=== PATIENT | male | born 1945 | race Caucasian/White ===

== ENCOUNTER → 2023-04-22 09:19 | Outpatient (REF) | payer MEDICARE, SELFPAY ==
[2023-04-22 10:04] LABS: % Basophils 0.4 % (0-2); % Eosinophils 4.4 % (0-6); % Immature Granulocytes 2.5 % (0-0.5); % Lymphocytes 10.2 % (20.5-51.1); % Monocytes 10.1 % (1.7-9.3); % Neutrophils 72.4 % (42.2-75.2); Absolute Eosinophils 0.2 10^3/uL (0-0.7); Absolute Immature Granulocytes 0.1 10^3/uL (0-0.05); Absolute Lymphocytes 0.5 10^3/uL (1.2-3.4); Absolute Monocytes 0.5 10^3/uL (0.1-0.6); Absolute Neutrophils 3.8 10^3/uL (1.4-6.5); Hematocrit 31.7 % (39.0-52.0); Hemoglobin 10.5 g/dL (13.0-18.0); Mean Corp Hgb Conc. 33.1 g/dL (33.0-37.0); Mean Corpuscular Hgb 31.1 pg (27.0-31.0); Mean Corpuscular Volume 93.8 fL (80.0-94.0); Nucleated Red Blood Cells % 0 % (-); Platelet Count 216 10^3/uL (130-400); Red Blood Cell Count 3.38 10^6/uL (4.70-6.10); Red Cell Dist. Width 14.1 % (11.5-14.5); White Blood Cell Count 5.3 10^3/uL (4.8-10.8)
[2023-04-22 10:31] LABS: ALT (SGPT) 13 U/L (0-50); AST (SGOT) 15 U/L (17-59); Alkaline Phosphatase 95 U/L (38-126); Blood Urea Nitrogen 60 mg/dl (9-20); Calcium 9.9 mg/dl (8.4-10.2); Carbon Dioxide 18 mmol/L (22-30); Chloride 105 mmol/L (98-107); Glucose 169 mg/dl (70-99); Potassium 4.3 mmol/L (3.5-5.1); Sodium 140 mmol/L (135-145); Total Bilirubin 0.6 mg/dl (0.2-1.3); Total Protein 6.7 g/dl (6.3-8.2); eGFR 16.67
[2023-04-22 10:59] LABS: PSA, Total - Diagnostic 0.16 ng/ml (0.0-4.0)
== END ==
LOC: REG 09:19
PROVIDERS: ATTENDING PHYSICIAN Internal Medicine Hematology & Oncology; FAMILY PHYSICIAN Family Medicine
DX: C61 Malignant neoplasm of prostate (principal); R91.8 Other nonspecific abnormal finding of lung field
CPT/HCPCS: 36415; 80053; 84153; 85025

== ENCOUNTER → 2023-07-15 11:55 | Outpatient (REF) | payer MEDICARE, SELFPAY ==
[2023-07-15 12:46] VITALS: BP 147/78; BP_SYST 55
[2023-07-15 13:44] VITALS: BP 149/73
== END ==
LOC: RADI 11:55
PROVIDERS: ATTENDING PHYSICIAN Radiology Vascular & Interventional Radiology
DX: Z43.6 Encounter for attention to other artificial openings of urinary tract (principal); N13.6 Pyonephrosis
CPT/HCPCS: 50435; C1729; C1769

== ENCOUNTER → 2023-07-21 10:13 | Outpatient (REF) | payer MEDICARE, SELFPAY ==
[2023-07-21 11:25] LABS: % Basophils 0.3 % (0-2); % Eosinophils 3.6 % (0-6); % Immature Granulocytes 1.9 % (0-0.5); % Lymphocytes 7.8 % (20.5-51.1); % Monocytes 6.5 % (1.7-9.3); % Neutrophils 79.9 % (42.2-75.2); Absolute Eosinophils 0.2 10^3/uL (0-0.7); Absolute Immature Granulocytes 0.1 10^3/uL (0-0.05); Absolute Lymphocytes 0.5 10^3/uL (1.2-3.4); Absolute Monocytes 0.4 10^3/uL (0.1-0.6); Hematocrit 31.4 % (39.0-52.0); Hemoglobin 10.7 g/dL (13.0-18.0); Mean Corp Hgb Conc. 34.1 g/dL (33.0-37.0); Mean Corpuscular Hgb 32.3 pg (27.0-31.0); Mean Corpuscular Volume 94.9 fL (80.0-94.0); Nucleated Red Blood Cells % 0 % (-); Platelet Count 232 10^3/uL (130-400); Red Blood Cell Count 3.31 10^6/uL (4.70-6.10); Red Cell Dist. Width 13.5 % (11.5-14.5); White Blood Cell Count 6.3 10^3/uL (4.8-10.8)
[2023-07-21 13:34] LABS: Blood Urea Nitrogen 52 mg/dl (9-20); Carbon Dioxide 19 mmol/L (22-30); Chloride 107 mmol/L (98-107); Glucose 150 mg/dl (70-99); Sodium 140 mmol/L (135-145); eGFR 15.05
[2023-07-21 13:46] LABS: PSA, Total - Diagnostic 0.14 ng/ml (0.0-4.0)
== END ==
LOC: REG 10:13
PROVIDERS: ATTENDING PHYSICIAN Internal Medicine Hematology & Oncology
DX: C61 Malignant neoplasm of prostate (principal); R91.8 Other nonspecific abnormal finding of lung field
CPT/HCPCS: 36415; 80048; 84153; 85025

== ENCOUNTER → 2023-07-26 12:00 | Outpatient (REF) | payer MEDICARE, SELFPAY ==
[2023-07-26 12:22] VITALS: BP_SYST 82
== END ==
LOC: RADI 12:00
PROVIDERS: ATTENDING PHYSICIAN Radiology Vascular & Interventional Radiology; FAMILY PHYSICIAN Family Medicine
DX: T83.092A Other mechanical complication of nephrostomy catheter, initial encounter (principal); Y83.3 Surgical operation with formation of external stoma as the cause of abnormal reaction of the patient, or of later complication, without mention of misadventure at the time of the procedure
CPT/HCPCS: 50431

== ENCOUNTER → 2023-08-02 13:13 | Outpatient (REF) | payer MEDICARE, SELFPAY ==
[2023-08-02 15:26] LABS: PSA, Total - Diagnostic 0.13 ng/ml (0.0-4.0)
== END ==
LOC: REG 13:13
PROVIDERS: ATTENDING PHYSICIAN Family Medicine Geriatric Medicine; FAMILY PHYSICIAN Family Medicine
DX: C61 Malignant neoplasm of prostate (principal)
CPT/HCPCS: 36415; 84153

== ENCOUNTER → 2023-08-10 08:06 | Outpatient (REF) | payer MEDICARE, SELFPAY ==
[2023-08-10 09:46] LABS: Albumin 4.1 g/dl (3.5-5.0); Blood Urea Nitrogen 52 mg/dl (9-20); Calcium 9.7 mg/dl (8.4-10.2); Carbon Dioxide 19 mmol/L (22-30); Chloride 107 mmol/L (98-107); Glucose 192 mg/dl (70-99); Phosphorus 4.5 mg/dl (2.5-4.5); Sodium 138 mmol/L (135-145); eGFR 16.03
[2023-08-10 10:14] LABS: Protein/creatinine Ratio 3.2; Urine Protein 111 mg/dl
[2023-08-11 12:10] LABS: Intact PTH 30.8 pg/ml (13.6-85.8)
== END ==
LOC: REG 08:06
PROVIDERS: ATTENDING PHYSICIAN Internal Medicine; FAMILY PHYSICIAN Family Medicine
DX: E83.39 Other disorders of phosphorus metabolism (principal); N18.5 Chronic kidney disease, stage 5; D63.1 Anemia in chronic kidney disease; N17.9 Acute kidney failure, unspecified
CPT/HCPCS: 36415; 80069; 82570; 82652; 83970; 84156

== ENCOUNTER → 2023-10-13 10:07 | Outpatient (REF) | payer MEDICARE, SELFPAY ==
[2023-10-13 10:28] VITALS: BP 144/75; BP_SYST 85
== END ==
LOC: RADI 10:07
PROVIDERS: ATTENDING PHYSICIAN Radiology Vascular & Interventional Radiology; FAMILY PHYSICIAN Family Medicine
DX: Z43.6 Encounter for attention to other artificial openings of urinary tract (principal); N13.30 Unspecified hydronephrosis
CPT/HCPCS: 50435; C1729; C1769

== ENCOUNTER → 2023-10-14 09:53 | Outpatient (REF) | payer MEDICARE, SELFPAY ==
[2023-10-14 10:46] LABS: % Basophils 0.3 % (0-2); % Immature Granulocytes 1.4 % (0-0.5); % Lymphocytes 8.7 % (20.5-51.1); % Monocytes 12.6 % (1.7-9.3); Absolute Eosinophils 0.1 10^3/uL (0-0.7); Absolute Immature Granulocytes 0.1 10^3/uL (0-0.05); Absolute Lymphocytes 0.5 10^3/uL (1.2-3.4); Absolute Monocytes 0.7 10^3/uL (0.1-0.6); Absolute Neutrophils 4.4 10^3/uL (1.4-6.5); Hemoglobin 10.2 g/dL (13.0-18.0); Mean Platelet Volume 10.3 fL (7.4-10.4); Nucleated Red Blood Cells % 0 % (-); Platelet Count 212 10^3/uL (130-400); Red Blood Cell Count 3.19 10^6/uL (4.70-6.10); Red Cell Dist. Width 13.5 % (11.5-14.5); White Blood Cell Count 5.9 10^3/uL (4.8-10.8)
[2023-10-14 12:19] LABS: ALT (SGPT) 12 U/L (0-50); AST (SGOT) 17 U/L (17-59); Albumin 3.9 g/dl (3.5-5.0); Alkaline Phosphatase 92 U/L (38-126); Blood Urea Nitrogen 57 mg/dl (9-20); Calcium 9.3 mg/dl (8.4-10.2); Carbon Dioxide 22 mmol/L (22-30); Chloride 102 mmol/L (98-107); Glucose 131 mg/dl (70-99); Potassium 3.7 mmol/L (3.5-5.1); Sodium 137 mmol/L (135-145); Total Bilirubin 0.5 mg/dl (0.2-1.3); Total Protein 6.7 g/dl (6.3-8.2); eGFR 11.73
== END ==
LOC: REG 09:53
PROVIDERS: ATTENDING PHYSICIAN Internal Medicine Hematology & Oncology; FAMILY PHYSICIAN Family Medicine
DX: C61 Malignant neoplasm of prostate (principal); R91.8 Other nonspecific abnormal finding of lung field; N18.9 Chronic kidney disease, unspecified
CPT/HCPCS: 36415; 80053; 84153; 85025

== ENCOUNTER → 2023-11-01 08:14 | Outpatient (REF) | payer MEDICARE, SELFPAY ==
[2023-11-01 10:42] LABS: Urine Albumin 1+ (Neg - Trace); Urine Bilirubin Negative (Negative); Urine Character Slightly Cloudy (Clear); Urine Color Yellow; Urine Glucose Negative (Negative); Urine Ketone Negative (Negative); Urine Leukocyte 2+ (Negative); Urine Nitrite Negative (Negative); Urine Occult Blood 1+ (Negative); Urine Urobilinogen Negative (Neg - 1+)
[2023-11-01 11:07] LABS: Albumin 4.3 g/dl (3.5-5.0); Blood Urea Nitrogen 47 mg/dl (9-20); Calcium 9.9 mg/dl (8.4-10.2); Carbon Dioxide 28 mmol/L (22-30); Chloride 101 mmol/L (98-107); Glucose 101 mg/dl (70-99); Potassium 4.1 mmol/L (3.5-5.1); Sodium 138 mmol/L (135-145); eGFR 13.77
[2023-11-01 11:40] LABS: Urine Mucus Many
[2023-11-01 11:42] LABS: Urine Red Blood Cell 0-2 /HPF (0-2); Urine White Cell 40-50 /HPF (0-5)
[2023-11-01 11:43] LABS: Urine Bacteria Many (Negative)
[2023-11-01 20:09] LABS: Protein/creatinine Ratio 2.1; Urine Protein 86 mg/dl
== END ==
LOC: REG 08:14
PROVIDERS: ATTENDING PHYSICIAN Internal Medicine; FAMILY PHYSICIAN Family Medicine
DX: C61 Malignant neoplasm of prostate (principal); N18.5 Chronic kidney disease, stage 5; E83.39 Other disorders of phosphorus metabolism; D63.1 Anemia in chronic kidney disease; I10 Essential (primary) hypertension
CPT/HCPCS: 36415; 80069; 81003; 81015; 82570; 84156

== ENCOUNTER → 2023-12-06 06:52 | Outpatient (REF) | payer MEDICARE, SELFPAY ==
[2023-12-06 07:52] VITALS: BP 148/95; BP_SYST 95
== END ==
LOC: RADI 06:52
PROVIDERS: ATTENDING PHYSICIAN Radiology Diagnostic Radiology; FAMILY PHYSICIAN Family Medicine
DX: Z43.6 Encounter for attention to other artificial openings of urinary tract (principal); N13.30 Unspecified hydronephrosis
CPT/HCPCS: 50435; C1729; C1769

== ENCOUNTER → 2024-01-13 07:21 | Outpatient (REF) | payer MEDICARE, SELFPAY ==
[2024-01-13 09:47] LABS: % Basophils 0.3 % (0-2); % Eosinophils 2.7 % (0-6); % Immature Granulocytes 1.4 % (0-0.5); % Lymphocytes 9.1 % (20.5-51.1); % Monocytes 5.6 % (1.7-9.3); % Neutrophils 80.9 % (42.2-75.2); Absolute Eosinophils 0.2 10^3/uL (0-0.7); Absolute Immature Granulocytes 0.1 10^3/uL (0-0.05); Absolute Lymphocytes 0.6 10^3/uL (1.2-3.4); Absolute Monocytes 0.4 10^3/uL (0.1-0.6); Absolute Neutrophils 5.1 10^3/uL (1.4-6.5); Hematocrit 31.6 % (39.0-52.0); Hemoglobin 10.5 g/dL (13.0-18.0); Mean Corp Hgb Conc. 33.2 g/dL (33.0-37.0); Mean Corpuscular Hgb 32.5 pg (27.0-31.0); Mean Corpuscular Volume 97.8 fL (80.0-94.0); Mean Platelet Volume 9.8 fL (7.4-10.4); Nucleated Red Blood Cells % 0 % (-); Platelet Count 220 10^3/uL (130-400); Red Blood Cell Count 3.23 10^6/uL (4.70-6.10); Red Cell Dist. Width 13.9 % (11.5-14.5); White Blood Cell Count 6.3 10^3/uL (4.8-10.8)
[2024-01-13 11:43] LABS: ALT (SGPT) < 10 U/L (0-50); AST (SGOT) 14 U/L (17-59); Albumin 4.2 g/dl (3.5-5.0); Alkaline Phosphatase 110 U/L (38-126); Blood Urea Nitrogen 44 mg/dl (9-20); Carbon Dioxide 24 mmol/L (22-30); Chloride 102 mmol/L (98-107); Glucose 170 mg/dl (70-99); Sodium 140 mmol/L (135-145); Total Bilirubin 0.8 mg/dl (0.2-1.3); Total Protein 6.9 g/dl (6.3-8.2); eGFR 11.44
[2024-01-13 12:01] LABS: PSA, Total - Diagnostic < 0.06 ng/ml (0.0-4.0)
== END ==
LOC: REG 07:21
PROVIDERS: ATTENDING PHYSICIAN Internal Medicine Hematology & Oncology; FAMILY PHYSICIAN Family Medicine
DX: C61 Malignant neoplasm of prostate (principal); R91.8 Other nonspecific abnormal finding of lung field; N18.9 Chronic kidney disease, unspecified
CPT/HCPCS: 36415; 80053; 84153; 85025

== ENCOUNTER 2024-01-25 22:53 | Inpatient (IN) | payer MEDICARE, SELFPAY ==
[2024-01-25 17:00] VITALS: BMI 25.0
[2024-01-25 17:05] VITALS: BP 107/66
[2024-01-25 18:00] VITALS: BP 104/63
[2024-01-25 18:04] LABS: COVID-19 Antigen Negative (Negative)
[2024-01-25 20:00] VITALS: BP 121/61
--- NOTE | 2024-01-25 20:06 | ED.GENMED ---
History of Present Illness
General
Chief Complaint: Abdominal Pain
Source: patient
Exam Limitations: none
Time Seen by Provider: 01/25/24 19:21
History of Present Illness
History of Present Illness:
This is a 78 year old male that comes in with c/o abd pain. States that he started about 2 weeks ago with abd pain. States that every morning when he gets up his stomach is grumbling. States that this gets less throughout the day. Then he started
with increased abd pain. Over the pst week the pain has gotten worse and it is more in the center abd. Sates that she can't eat and has only eaten maybe 2 bowl of cereal and did not finish this. States that he has had chills, chest pain, with a
cough, SOB with activity, abd pain, and diarrhea, dizziness. Denies any fever, nausea, vomiting, headache. Patient also has 2 nephrostomy tubes with the left being the dominent.
Past History
Past History
ED Past Medical History: None; Negative Asthma, HTN, Hypercholesterolemia or NIDDM
ED Past Surgical History: Orthopedic (Right rotator cuff, ), Urological (Bilateral nephrostomy tubes) and Other (Cataracts, Inguinal hernia, Polyps removed form Throat)
Social History
Tobacco: Former smoker
Alcohol: None
Personal:
Living: with family
Review of Systems
Review of Systems
All Other Systems: ROS reviewed and negative except as documented in HPI and ROS
Constitutional: Reports chills; Denies fever
EENT: Reports no symptoms
Respiratory: Reports cough and trouble breathing
Cardiac: Reports chest pain
ABD/GI: Reports abdominal pain and diarrhea; Denies nausea or vomiting
: Reports other (Bilateral Nephrostomy tubes)
Musculoskeletal: Reports no symptoms
Skin: Reports no symptoms
Neurological: Reports dizzy; Denies headache
Psychiatric: Reports no symptoms
Phy Exam
General Physical Exam
General Presentation: no apparent distress
General age: appears stated age
General Skin: warm and dry
General Habitus: elderly
General Mental: alert
General Hydration: dry mucous membranes
ENT Exam
ENT Exam: TM's normal, pharynx normal and neck supple
Eye Exam
Eye Exam: EOMI
Cardiovascular Exam
Cardiovascular Exam: regular rate/rhythm, no edema, no murmur and normal peripheral pulses
Pulmonary Exam
Pulmonary Exam: lungs clear, no respiratory distress, no rales, chest non tender, no crackles, no rhonchi, no wheezing and other (Dry cough noted)
Gastrointestinal Exam
Gastrointestinal Exam: normal bowel sounds, soft, no organomegaly, no pulsatile mass, non distended and tender (Left sided abd tenderness)
Genitourinary Exam Male
Exam Male: other (Bilateral nephrostomy tubes intact with site clean and dry. Left suture have broke on the nephrostomy tube. )
Musculoskeletal Exam
Musculoskeletal Exam: full ROM and no edema
Skin Exam
Skin Exam: normal color, warm/dry, no rash, no petechia and other
Psychiatric Exam
Psychiatric Exam: normal mood/affect
Course
Orders/Labs/Results
Orders:
Orders
01/25/24 17:25
COVID-19 Antigen Urgent
Source: Nasal Swab
Influenza A+B Rapid Molecular Urgent
MYKE Source: Nasal Swab
Specimen Description:
01/25/24 20:06
0.9% Sodium Chloride 1000 ml [Nss] 1,000 ml IV BOLUS
CR Chest - 2 Views Urgent
Comment:
Reason For Exam: Cough
01/25/24 20:17
Electrocardiogram (*1) Urgent
Reason for Study: Shortness of Breath
01/25/24 20:29
Complete Blood Count/With Diff Urgent
Comprehensive Metabolic Panel Urgent
Lactic Acid Urgent
Lipase Urgent
Troponin I Urgent
01/25/24 20:46
Urinalysis Reflex To Culture Urgent
Date Specimen was Collected: 01/25/24
Time Specimen was Collected: 20:45
Urine Microscopic Reflex Cult Urgent
Urine Culture Urgent
MYKE Source: U
Specimen Description:
Date Specimen was Collected: 01/25/24
Time Specimen was Collected: 20:45
01/25/24 21:41
Iohexol [Omnipaque] See Protocol PO NOW STA
01/25/24 21:44
Cefepime HCl [Maxipime] 1,000 mg IV NOW STA
01/25/24 22:45
Admit/Transfer Patient As Directed
Co-Sign Provider:
Level of Care: Inpatient admission
Assign to:: Medical/Surgical
Physician / Group: tj
Diagnosis: nephrostmy associated uti
Reason for Hospitalization: nephrostomy associated uti
Expected length of stay greater than two midnights?: Yes
ELOS- Estimated Length of Stay in days: 2
I certify the patient meets the requirements for IP care: Yes
Code Status As Directed
Resuscitation Status: Full Code
PRN Pain Medication Management As Directed
May give lesser potent ordered pain med per pt: Yes
preference::
Protocol:: Medication orders for pain may be administered in a
manner that supports deferring to patient preference
when the pt is:
- Requesting an ordered lesser potent pain medication.
Least to most potent pain medications are defined
as: acetaminophen < NSAID < tramadol < opioids
(morphine, oxycodone, hydromorphone).
- Requesting a lesser dose of the same medication IF
ORDERED.
- Requesting a less intrusive route of administration
if both routes are prescribed by the provider (PO <
IV).
01/25/24 22:52
Consult Notification Routine
Specialty to Notify: Nephrology
NEPHROLOGY CONSULT Routine
Consulting Provider: Diodato,Chapin V.
Was physician already notified: No
Reason for consult: jaylyn
01/26/24 00:00
CT Abd/pel (oral only)-DH Only Urgent
Reason For Exam: Left sided and mid abd pain
01/26/24 00:14
0.9% Sodium Chloride 1000 ml [Nss] 1,000 ml IV 100 mls/hr
Acetaminophen [Tylenol] 650 mg PO Q4HPRN PRN
Cefepime HCl [Maxipime] 1,000 mg IV Q12H
01/26/24 00:14
Activity As Directed
Activity Level: As Tolerated
Vital Signs As Directed
Frequency: Per unit guidelines
DX Deep Vein Thrombosis Video Routine
01/26/24 06:00
Complete Blood Count/With Diff IN AM
Comprehensive Metabolic Panel IN AM
01/26/24 08:00
Heparin 5,000 units SC Q12
01/26/24 Dinner
Regular
Abnormal Lab Results
01/25/24 01/25/24
20:29 20:46
RBC 3.03 L 10^6/uL
(4.70-6.10)
Hgb 9.5 L g/dL
(13.0-18.0)
Hct 27.0 L %
(39.0-52.0)
MCH 31.4 H pg
(27.0-31.0)
Abs Immat Gran (auto) 0.1 H 10^3/uL
(0-0.05)
Absolute Neuts (auto) 8.6 H 10^3/uL
(1.4-6.5)
Absolute Lymphs (auto) 0.4 L 10^3/uL
(1.2-3.4)
Absolute Monos (auto) 1.0 H 10^3/uL
(0.1-0.6)
Immature Gran % 1.2 H %
(0-0.5)
Neutrophils % 82.9 H %
(42.2-75.2)
Lymphocytes % 4.3 L %
(20.5-51.1)
Monocytes % 9.9 H %
(1.7-9.3)
Potassium 3.4 L mmol/L
(3.5-5.1)
Chloride 97 L mmol/L
(98-107)
Carbon Dioxide 21 L mmol/L
(22-30)
BUN 92 H mg/dl
(9-20)
Creatinine 7.5 H* mg/dL
(0.7-1.3)
Glucose 109 H mg/dl
(70-99)
Lactic Acid 2.1 H mmol/L
(0.7-2.0)
Ur Occult Blood Reflex 3+ A
(Negative)
Leukocyte Esterase Rfl 2+ A
(Negative)
Urine RBC 3-6 A /HPF
(0-2)
Urine WBC (Reflex) 50-60 A /HPF
(0-5)
Urine Bacteria (Reflex) Many A
(Negative)
Urine Albumin (Reflex) 3+ A
(Neg - Trace)
01/25/24 20:29
01/25/24 20:29
COVID and Influenza negative H/H low. Acute renal failure, Glucose nonfasting. Urine positive for infection. Lactic acid elevated at 2.1, Troponin 0.020, Lipase normal at 116.
Vital Signs
Initial and Last Documented VS:
Initial Vital Signs
Temp Pulse Resp BP Pulse Ox
97.5 F 94 18 107/66 100
01/25/24 17:05 01/25/24 17:05 01/25/24 17:05 01/25/24 17:05 01/25/24 17:05
Last Documented Vital Signs
Temp Pulse Resp BP Pulse Ox
98.1 F 79 18 130/61 94
01/26/24 00:13 01/26/24 00:13 01/26/24 00:13 01/26/24 00:13 01/26/24 00:13
MDM/Problems Addressed
Differential Diagnosis Includes:
UTI, Diverticulitis, Nephrostomy dislodged
MDM/Problems Addressed:
This is a 78 year old male that comes in with c/o abd pain for the past 2 weeks. States that over the past week the pain has increased. States that he has not been able to eat and over the past week the pain has gotten worse.
Will get labs, give IV fluids, CT scan and urine
Back into see patient. Explained that he would be admitted as patient is in acute renal failure. Patient has a UTI. Unable to give IV contrast so will give oral for his abd pain to get CT scan.
CT report given to Hospitalist.
Chronic conditions affecting care:
Bilateral Nephrostomy tubes
Acute Exacerbation and/or Progression of Chronic Illness:
NA
*Radiology
Radiology exam reviewed: radiology read reviewed (CT night hawk- Compared to 08/15/2022 Bilateral percutaneous nephrstomy tubes. Multiple at least 5 stones in the distal left ureter measuring up to 7mm in diameter. 2mm stone in the right UVJ. Mild
left hydronephrosis and hydroureter. Mild bilateral perinephric stranding. Mild bladder wall thickening), all reviewed NAD by ED Provider (Ct cont- possibley due to its decompressed state please correlate for urinary tract infection. Other
nonobstructing stones in the kidneys bilaterally. Moderate left and severe right renal scarring. Oral contrast is seen in the colon, suggestive or hyperperistalsis/enterocolitis or maybe due to delay) and other (CT cont-in imaging. Incidental
findings: Normal appendix. Gallbladder is unremarkable. Moderate to severe aortic calcifications. Prostate brachytherapy pellets. Lack of intravenous contrast diminished evaluation of the visceral organs. )
*Pulse Oximetry
Patient hypoxic: no
*Emotionally Impaired Teacher Interpretation
Rate: Emotionally Impaired Teacher- N/A
*Critical Care Note
Total Time (30-74mins, 75-104mins- exclusive of procedures): Not Applicable
ED Attending Note
-
Portions of this chart may have been created with voice recognition software.� Occasional wrong word or��sound alike� substitutions may have occurred due to the inherent limitations of voice recognition software.
Discharge Plan
Departure
Patient Disposition: Admit
Date of Disposition: 01/25/24
Time of Disposition: 22:00
Admit to: Telemetry
Presentation/result/management discussed w/ accepting MD/DO: Hospitalist
Patient with high blood pressure during this ER visit?: Yes
Condition: Good
Covid-19: Negative COVID-19
Discharge Problem:
Acute renal failure, Urinary tract infection
Interventions
Interventions:
*Risk Screen - Suicide Last Done: 01/25/24 17:07
*General Assessment Last Done: 01/25/24 17:07
*Neglect/Abuse Screening Last Done: 01/25/24 17:07
ED- Fall Risk Assessment Last Done: 01/25/24 22:09
*ED COVID-19 Vaccine History Last Done: 01/25/24 22:08
*Nursing Disposition Last Done: 01/26/24 00:00
QS-Kjeuii-Bzlbmiavtq Assessment Last Done: 01/25/24 19:54
Discharge Date and Time
Discharge Date/Time: 01/26/24 00:10
[2024-01-25] MEDS: NSS 1000 IV (20:25)
[2024-01-25 20:39] LABS: % Basophils 0.2 % (0-2); % Eosinophils 1.5 % (0-6); % Immature Granulocytes 1.2 % (0-0.5); % Lymphocytes 4.3 % (20.5-51.1); % Monocytes 9.9 % (1.7-9.3); % Neutrophils 82.9 % (42.2-75.2); Absolute Eosinophils 0.2 10^3/uL (0-0.7); Absolute Immature Granulocytes 0.1 10^3/uL (0-0.05); Absolute Lymphocytes 0.4 10^3/uL (1.2-3.4); Absolute Neutrophils 8.6 10^3/uL (1.4-6.5); Hemoglobin 9.5 g/dL (13.0-18.0); Mean Corp Hgb Conc. 35.2 g/dL (33.0-37.0); Mean Corpuscular Hgb 31.4 pg (27.0-31.0); Mean Corpuscular Volume 89.1 fL (80.0-94.0); Mean Platelet Volume 9.6 fL (7.4-10.4); Nucleated Red Blood Cells % 0 % (-); Platelet Count 303 10^3/uL (130-400); Red Blood Cell Count 3.03 10^6/uL (4.70-6.10); Red Cell Dist. Width 13.3 % (11.5-14.5); White Blood Cell Count 10.3 10^3/uL (4.8-10.8)
[2024-01-25 20:58] LABS: Urine Albumin 3+ (Neg - Trace); Urine Bilirubin Negative (Negative); Urine Character Very Cloudy (Clear); Urine Color Yellow; Urine Glucose Negative (Negative); Urine Ketone Negative (Negative); Urine Leukocyte 2+ (Negative); Urine Nitrite Negative (Negative); Urine Occult Blood 3+ (Negative); Urine Urobilinogen Negative (Neg - 1+)
[2024-01-25 21:03] LABS: Lactic Acid 2.1 mmol/L (0.7-2.0)
[2024-01-25 21:05] LABS: Urine Squamous Cell 0-2 /LPF (Few)
[2024-01-25 21:07] LABS: Urine Bacteria Many (Negative); Urine White Cell 50-60 /HPF (0-5)
[2024-01-25 21:18] LABS: ALT (SGPT) 13 U/L (0-50); AST (SGOT) 24 U/L (17-59); Albumin 3.6 g/dl (3.5-5.0); Alkaline Phosphatase 86 U/L (38-126); Blood Urea Nitrogen 92 mg/dl (9-20); Carbon Dioxide 21 mmol/L (22-30); Chloride 97 mmol/L (98-107); Estimated Creatinine Clearance 8 ml/min; Glucose 109 mg/dl (70-99); Lipase 116 U/L (23-300); Potassium 3.4 mmol/L (3.5-5.1); Sodium 139 mmol/L (135-145); Total Bilirubin 0.7 mg/dl (0.2-1.3); Total Protein 6.5 g/dl (6.3-8.2); eGFR 6.87
[2024-01-25] MEDS: OMNIPAQUE 50 ML PO (21:59)
[2024-01-25] MEDS: MAXIPIME 1000 MG IV (22:04)
--- NOTE | 2024-01-25 22:47 | HPS.HSE ---
Family Physician
-
Family Physician: Doni Simons
Chief Complaint
-
abdominal pain
History of Present Illness
78-year-old male past medical history of chronic urinary retention/ureteral obstruction status post bilateral nephrostomy tubes, hypertension, presenting for abdominal pain. Patient started developing multiple symptoms 2 weeks ago. He developed
abdominal pain across his lower abdomen. Denies nausea or vomiting. He also developed cough which is sometimes productive. He also developed chest pain that is more sharp and intermittently comes and goes. He also has been having chills. He has
been having diarrhea for the past 2 weeks. He denies any changes in output from his bilateral urostomies. The urostomy is supposed to be be changed every 3 months and were changed 1 and half month ago .
He denies smoking or alcohol.
Medical History
Past Medical History
Past Medical History: Reports Other (chronic urinary retention/ureteral obstruction status post bilateral nephrostomy tubes, hypertension,)
Past Surgical History: Reports Other (Orthopedic (Right rotator cuff, ), Urological (Bilateral nephrostomy tubes) and Other (Cataracts, Inguinal hernia, Polyps removed form Throat))
Social History
Tobacco: Non-smoker
Alcohol: None
Drug: None
Family History
Family History: Not pertinent
Allergies / Home Medications
Allergies reflects when Allergies were last updated in [facility].
Home Medications with original date entered in [facility]
Allergy/Medication List:
Allergies
Allergy/AdvReac Type Severity Reaction Status Date / Time
No Known Allergies Allergy Verified 04/19/23 13:12
Home Medications
amlodipine 2.5 mg tablet 2.5 mg PO DAILY #30 tabs 08/16/21
calcitriol 0.25 mcg capsule 0.25 mcg PO DAILY #90 caps 08/16/21
polyethylene glycol 3350 17 gram oral powder packet 17 grams PO BID PRN constipation 03/03/22
sodium bicarbonate 650 mg tablet 1,300 mg PO BID 03/03/22
abiraterone 250 mg tablet 1,000 mg PO DAILY 07/14/22
prednisone 5 mg tablet 5 mg PO DAILY 07/14/22
calcium acetate 667 mg tablet 667 mg PO DAILY 04/19/23
Review of Systems
-
History Source: Patient
A 12 point ROS was completed and negative except as noted: Yes
Constitutional: Reports No Symptoms
EENT: Reports No Symptoms
Respiratory: Reports No Symptoms
Cardiac: Reports No Symptoms
Abdomen/GI: Reports See HPI
: Reports See HPI
Musculoskeletal: Reports No Symptoms
Skin: Reports No Symptoms
Neurological: Reports No Symptoms
Endocrine: Reports No Symptoms
Hematologic/Lymphatic: Reports No Symptoms
Psych: Reports No Symptoms
Physical Exam
Vital Signs
Vital Signs
Temp Pulse Resp BP Pulse Ox
98.4 F 76 18 121/61 97
01/25/24 17:10 01/25/24 20:00 01/25/24 20:00 01/25/24 20:00 01/25/24 20:00
Physical Exam
General: Well Developed, Well Nourished and No Apparent Distress
HEENT: NormoCephalic, Moist mucous membranes and Atraumatic
Respiratory: Clear
Cardiac: S1/S2 and Regular Rhythm; No Murmur or Rub
GI: Soft, Non Distended, Normal Bowel Sounds and Tender (lower abdomen); No Organomegaly
Rectal: Deferred by Provider
Musculoskeletal: No Clubbing, No Cyanosis and No Edema
Skin: No Rash
Neuro: Nonfocal/grossly intact
Laboratory Results
-
01/25/24 20:29
01/25/24 20:29
Laboratory Results
Lactic Acid 2.1 mmol/L (0.7-2.0) H 01/25/24 20:29
Total Bilirubin 0.7 mg/dl (0.2-1.3) 01/25/24 20:29
AST 24 U/L (17-59) 01/25/24 20:29
ALT 13 U/L (0-50) 01/25/24 20:29
Alkaline Phosphatase 86 U/L (38-126) 01/25/24 20:29
Troponin I 0.020 ng/ml 01/25/24 20:29
Lipase 116 U/L (23-300) 01/25/24 20:29
Data Reviewed
-
Lab Data: Labs Reviewed by me
Old Records: Reviewed
Impression/Plan
-
IMPRESSION:
PLAN:
# Nephrostomy tube associated UTI
# History of chronic urinary retention/ureteral obstruction/post bilateral nephrostomy tubes
-Urinalysis positive
-CT abdomen pelvis pending to evaluate for pyelonephritis/nephrostomy tube obstruction
-Urine culture pending
-IV fluids
-Cefepime
# PARUL on CKD prerenal versus obstructive
-Creatinine of 7.5 from 4.9 previously
-CT abdomen pelvis pending
-Continue sodium bicarbonate
-Nephrology consulted
# Acute cough/chest pain
-Chest x-ray shows mild left basilar atelectasis
-Mucinex
-Check EKG
# Loose stool/diarrhea
-Continue to monitor
-Stool studies and C. difficile if persistent tomorrow
Essential hypertension
Full code
DVT prophylaxis�heparin
Regular diet
[2024-01-26 00:13] VITALS: BP 130/61; BMI 24.3
[2024-01-26] MEDS: NSS 1000 IV ×3 (01:07→20:44)
--- NOTE | 2024-01-26 01:41 | W.PN.UPDATE ---
Update Note
Progress Note Update
Abdomen/PLVS ct shows
Bilateral Percutaneous nephrostomy tubes. Multiple at least 5 stones in the distal left ureter Measuring up to 7 mm in diameter. 2 mm stone in the right UVJ. Mild left hydronephrosis & hydroureter.
-Mild bilateral perinephric stranding. Mild bladder wall thickening, possibly due to its decompressed state please correlate for urinary tract infection. Other nonobstructing stones in the kidneys bilaterally. Moderate left and sever right renal
scarring.
-Oral contrast in seen in the colon, suggestive of hyperperistalsis/enterocolitis or maybe due to delay in imaging.
Incidental finding:
Normal appendix & gallbladder is unremarkable. Moderate to severe aortic calcification. Prostate brachytherapy pellets.
Plan
- Urology consult was placed for multiple stones LT distal ureter/ mild LT hydronephrosis & hydroureter.
- Incidental finding :Moderate to severe aortic calcification, patient complained of chest pain on admission time but currently with no chest pain, troponin done on admission time and was unremarkable will repeat in am.
-Please consider cardiology for further eval as needed.
--- NOTE | 2024-01-26 04:02 | PTCARENOTE ---
pt inc of large amt of diarrhea- cdif sent- chg bath given
[2024-01-26 06:51] LABS: % Basophils 0.2 % (0-2); % Immature Granulocytes 2.5 % (0-0.5); % Lymphocytes 5.1 % (20.5-51.1); % Monocytes 9.1 % (1.7-9.3); % Neutrophils 81.1 % (42.2-75.2); Absolute Eosinophils 0.2 10^3/uL (0-0.7); Absolute Immature Granulocytes 0.2 10^3/uL (0-0.05); Absolute Lymphocytes 0.5 10^3/uL (1.2-3.4); Absolute Monocytes 0.8 10^3/uL (0.1-0.6); Absolute Neutrophils 7.3 10^3/uL (1.4-6.5); Hematocrit 24.3 % (39.0-52.0); Hemoglobin 8.3 g/dL (13.0-18.0); Mean Corp Hgb Conc. 34.2 g/dL (33.0-37.0); Mean Corpuscular Hgb 30.5 pg (27.0-31.0); Mean Corpuscular Volume 89.3 fL (80.0-94.0); Mean Platelet Volume 9.8 fL (7.4-10.4); Nucleated Red Blood Cells % 0 % (-); Platelet Count 261 10^3/uL (130-400); Red Blood Cell Count 2.72 10^6/uL (4.70-6.10); Red Cell Dist. Width 13.4 % (11.5-14.5); White Blood Cell Count 9.1 10^3/uL (4.8-10.8)
[2024-01-26 07:08] LABS: Lactic Acid 0.7 mmol/L (0.7-2.0)
[2024-01-26 07:21] LABS: Troponin I 0.017 ng/ml
[2024-01-26 07:24] LABS: ALT (SGPT) 13 U/L (0-50); AST (SGOT) 28 U/L (17-59); Alkaline Phosphatase 82 U/L (38-126); Blood Urea Nitrogen 82 mg/dl (9-20); Calcium 7.8 mg/dl (8.4-10.2); Carbon Dioxide 17 mmol/L (22-30); Chloride 102 mmol/L (98-107); Estimated Creatinine Clearance 9 ml/min; Glucose 110 mg/dl (70-99); Potassium 2.9 mmol/L (3.5-5.1); Sodium 139 mmol/L (135-145); Total Bilirubin 0.3 mg/dl (0.2-1.3); Total Protein 5.5 g/dl (6.3-8.2); eGFR 7.86
--- NOTE | 2024-01-26 08:04 | W.PN.HOSP.TC ---
Today's Communication/Plan
-
Continue antibiotics
Appreciate urology and nephrology
Recheck labs
Replace potassium as needed
Assessment / Plan
Assessment / Plan
Physical Exam
General: Well Developed, Well Nourished and No Apparent Distress
HEENT: Normocephalic, Moist mucous membranes and Atraumatic
Respiratory: Clear
Cardiac: S1/S2 and Regular Rhythm
GI: Soft, Non Distended, Normal Bowel Sounds and Tender (lower abdomen)
Musculoskeletal: No Cyanosis and No Edema
Skin: Warm. Dry.
Neuro: Nonfocal/grossly intact
Chest X-Ray (as per radiologist's report)
'IMPRESSION:
Mild left basilar probable atelectasis.'
CT Abdomen/Pelvis (as per radiologist's report)
'IMPRESSION:
Several distal left ureteral calculi are present measuring up to 7 mm with associated mild left hydronephrosis, new from prior.
2 mm distal right ureteral calculus without significant right-sided hydroureteronephrosis.
Grossly stable bibasilar pulmonary nodules suspicious for metastatic disease......
......There is no CT evidence for enterocolitis. There are moderate diffuse atherosclerotic calcifications, similar to prior.'
Assessment/Plan
78-year-old male with history of chronic bilateral nephrostomy tubes, here for multiple symptoms including abdominal pain, diarrhea, chest pain, cough and PARUL on CKD. IV fluids, cefepime.
# Concern for nephrostomy tube associated UTI
# Bilateral Percutaneous Nephrostomy Tubes
# Mild bilateral perinephric stranding? Mild bladder wall thickening?
# History of chronic urinary retention/ureteral obstruction/post bilateral nephrostomy tubes
# Moderate left and severe right renal scarring
-Urinalysis positive
-CT abdomen pelvis pending to evaluate for pyelonephritis/nephrostomy tube obstruction
-Urine culture pending
-IV fluids
-Cefepime
-Nephrostomy tube sutures are not intact -- consulted Interventional Radiology, appreciate their evaluation and recommendations
#Abdominal Pain
#Diarrhea
-C. diff negative
-Consulted GI, appreciate their evaluation and recommendations
-Continue dairy-free, low-fat, low-residue/low-fiber diet
-Follow stool studies
#Moderate to severe aortic calcification?
#Prostate brachytherapy pellets?
# PARUL on CKD 4
-Follows with Dr. Burciaga outpatient
-Baseline creatinine is 3.9
-Continue IV fluids
-Creatinine of 7.5 from 4.9 previously
-CT abdomen pelvis noted
-Continue sodium bicarbonate if needed, as per nephrology
-Nephrology consulted
#Hypokalemia
-Potassium replaced
-Recheck BMP
# Acute cough/chest pain
-Chest x-ray shows mild left basilar atelectasis
-Mucinex
-Check EKG
# Loose stool/diarrhea
-Continue to monitor
-Stool studies and C. difficile if persistent tomorrow
-Consulted GI, appreciate evaluation and recommendations
#Essential hypertension
#Stage IV prostate cancer on abiraterone therapy
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
#Status post TURP
Code Status: Full code
DVT prophylaxis: Heparin subq. Will add SCDs if ultrasound of lower extremities is negative for DVT.
Regular diet
Anticipated Discharge: 24 - 48 hours
Subjective/Interval History
-
Date of Service: January 26, 2024
Patient was seen and examined. He still reported some abdominal pain and diarrhea.
Objective Data
-
Labs:
Laboratory Results
01/25/24 01/26/24
20:29 06:36
WBC 10.3 9.1
Hgb 9.5 L 8.3 L
Hct 27.0 L 24.3 L
Plt Count 303 261
Sodium 139 139
Potassium 3.4 L 2.9 L
Chloride 97 L 102
Carbon Dioxide 21 L 17 L
BUN 92 H 82 H
Creatinine 7.5 H* 6.7 H*
Glucose 109 H 110 H
Calcium 9.0 7.8 L
Total Bilirubin 0.7 0.3
AST 24 28
ALT 13 13
Alkaline Phosphatase 86 82
Vital Signs:
Vital Signs
Temp Pulse Resp BP Pulse Ox
98.1 F 79 18 130/61 97
01/26/24 00:13 01/26/24 00:13 01/26/24 00:13 01/26/24 00:13 01/26/24 00:52
I&O
01/25/24 01/26/24 01/27/24
06:59 06:59 06:59
Intake Total 720 / 720
Output Total 300 / 300
Balance 420 / 420
[2024-01-26 08:17] VITALS: BP 124/63
[2024-01-26] MEDS: HEPARIN 5000 UNITS SC ×2 (09:15→20:31)
[2024-01-26] MEDS: KCL 40 MEQ PO (10:30)
--- NOTE | 2024-01-26 11:22 | CM ---
Patient seen bedside, initial assessment completed. Patient resides with his in a two story home, one step to enter through side, four steps to enter through back. Patient reports history of [facility] in past, denies SNF. Patient confirms PCP
[place], pharmacy [facility], confirms he has 'some' prescription coverage. Patient denies insecurities at home. CM will continue to follow for all discharge planning needs.
Plan; home with , watch for VN needs.
--- NOTE | 2024-01-26 11:48 | CON.GI ---
Addendum entered and electronically signed by Dami Garcia DO 01/26/24 15:15:
I saw and examined the patient.
The BURRER OPERATOR's note was reviewed and I agree with the note.
Comment: Mr. 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
stools over the past two weeks. Denies any nocturnal symptoms and specifically notes 1-2 looser stools for less than two weeks. No prior colonoscopy in the past or prior chronic diarrhea. Had subjective chills as well but no other fevers, sick
contacts, travel or other new medications. Although he does note receiving oral contrast for his CT scan which resulted in significant diarrhea. CT Abd/pelvis unrevealing for any bowel or rectal wall thickening or other findings to suggest
enterocolitis. Etiology of acute, non-bloody, watery diarrhea appears most likely infectious. He has never had a prior colonoscopy and concern for advanced prostate cancer which is on the differential however no chronicity of symptoms making
infectious more likely given his symptoms and reassuring CT imaging without any rectal wall thickening or other abnormality. Possibly medication related but without chronic symptoms. C Diff testing (-) but would benefit from further infectious
work-up and stool studies. Currently his abdominal pain is improving and tolerating diet (burger and salad) and likely related to gas discomfort secondary to diarrhea.
#Acute, Non-bloody Diarrhea
#Abdominal Discomfort #Bloating
#Hx of Prostate Cancer (s/p prior XRT) c/b
#Obstructive Uropathy #PARUL on CKD
Recommendations:
- Dairy-free, low-fat, low-residue/low-fiber diet
- Agree with checking extended infectious stool studies- stool culture, Giardia, crypto
- Not c/w with abx-associated diarrhea given recent abx time-course and fine to continue IV abx as per primary team
- Defer further chronic w/u at this time and as this seems to be improving
- Monitor stools and/or blood while inpatient
- May trial Simethicone PRN for gas/bloating
- No plans for endoscopic evaluation at this time
- Rest of care as outlined below
GI team will continue to follow.
Original Note:
Consultation
-
Date/Time Consultation Requested: 01/26/24 1100
Date/Time Consultation Performed: 01/26/24 1150
Requesting Provider: Ran Lam MD
Performing Provider: KIKA Myles, Lourdes Garcia DO
Reason for Consultation: diarrhea
Medical History
Chief Complaint / HPI
Chief Complaint: chills, chest pain, abdominal pain, diarrhea
History of Present Illness:
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
repair presents with multiple symptoms including chest pain, chills, mid abdominal pain and diarrhea over the last 2 weeks. On admission concern for UTI with Acute on chronic CKD with creat up to 7.5. CT A/P with oral contrast was completed with
concern for several distal left ureteral calculi up to 7 mm with left hydro. Also noted 2 mm distal right ureteral calculus without right hydro and pulm nodules concern for mets. no enterocolitis. For urology and nephrology consult. In review with
patient he state he began with diarrhea about 2 weeks ago. Prior to that time stool were formed daily or every other day. Now 3-4 loose stools daily without blood. Abdominal pain is mid abdomen intermittent. He is unable to state what makes pain
better or worse. He denies any recurrent travel, abx, or sick contacts. No change in medication. No hx colonoscopy in past.
Pt otherwise denies dysphagia, GERD, nausea, vomiting, blood or black in stools. On admission noted with drop in hbg 10.5 on 01/12 then drop to 8.3 after admission.
Past Medical History
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
Past Surgical History: Orthopedic (rotator cuff surgery), Urological (TURP) and Other (b/l nephrostomies 07/2021, hernia repair, cataracts, polyps removed from throat)
Social History
Tobacco: Non-Smoker
Alcohol: None
Drug: None
Personal:
Living: With Family
Employment: Retired
Family History
Family History: Other (no family hx colon CA or polyps)
Allergies / Home Medications
Allergy/AdvReac Type Severity Reaction Status Date / Time
No Known Allergies Allergy Verified 04/19/23 13:12
�Medication �Instructions �Recorded
polyethylene glycol 3350 17 gram 17 grams PO BID PRN constipation 03/03/22
oral powder packet
sodium bicarbonate 650 mg tablet 1,300 mg PO BID Kidney Disease 03/03/22
abiraterone 250 mg tablet 1,000 mg PO DAILY Cancer 07/14/22
prednisone 5 mg tablet 5 mg PO DAILY Autoimmune Disorder 07/14/22
calcium acetate 667 mg tablet 667 mg PO DAILY Kidney Disease 04/19/23
amlodipine 2.5 mg tablet 2.5 mg PO DAILY Blood Pressure 01/26/24
calcitriol 0.25 mcg capsule 0.25 mcg PO DAILY Supplement 01/26/24
Review of Systems
-
History Source: Patient
Constitutional: Reports Fever (low grade ) and Chills
EENT: Reports No Symptoms
Respiratory: Reports No Symptoms
Cardiac: Reports Chest Pain
Abdomen/GI: Reports Abdominal Pain and Diarrhea
: Reports No Symptoms
Musculoskeletal: Reports No Symptoms
Skin: Reports No Symptoms
Neurological: Reports Weakness
Endocrine: Reports No Symptoms
Hematologic/Lymphatic: Reports No Symptoms
Vital Signs
Temp Pulse Resp BP Pulse Ox
100.2 F 70 16 124/63 95
01/26/24 08:17 01/26/24 08:17 01/26/24 08:17 01/26/24 08:17 01/26/24 08:17
Physical Exam
Exam
General: Well Developed, Well Nourished and No Apparent Distress
HEENT: Normocephalic and Anicteric
Respiratory: Clear
Cardiac: Regular Rhythm
GI: Soft, Non Distended and Tender (mild mid tenderness )
Genito-urinary: Other (b/l nephrostomy tubes)
Musculoskeletal: No Clubbing and No Cyanosis
Skin: Warm and Dry
Neuro: Awake, Alert and AO x 3
Psych: Calm
Results
WBC 9.1 10^3/uL (4.8-10.8) 01/26/24 06:36
Hgb 8.3 g/dL (13.0-18.0) L 01/26/24 06:36
Hct 24.3 % (39.0-52.0) L 01/26/24 06:36
MCV 89.3 fL (80.0-94.0) 01/26/24 06:36
Plt Count 261 10^3/uL (130-400) 01/26/24 06:36
Absolute Neuts (auto) 7.3 10^3/uL (1.4-6.5) H 01/26/24 06:36
Sodium 139 mmol/L (135-145) 01/26/24 06:36
Potassium 2.9 mmol/L (3.5-5.1) L 01/26/24 06:36
Chloride 102 mmol/L (98-107) 01/26/24 06:36
Carbon Dioxide 17 mmol/L (22-30) L 01/26/24 06:36
BUN 82 mg/dl (9-20) H 01/26/24 06:36
Creatinine 6.7 mg/dL (0.7-1.3) H* 01/26/24 06:36
Calcium 7.8 mg/dl (8.4-10.2) L 01/26/24 06:36
Total Bilirubin 0.3 mg/dl (0.2-1.3) 01/26/24 06:36
AST 28 U/L (17-59) 01/26/24 06:36
ALT 13 U/L (0-50) 01/26/24 06:36
Alkaline Phosphatase 82 U/L (38-126) 01/26/24 06:36
Lipase 116 U/L (23-300) 01/25/24 20:29
Diagnostic Image Results:
01/26/24 CT Abd/pel (oral only)-DH Only
Several distal left ureteral calculi are present measuring up to 7 mm with associated mild left hydronephrosis, new from prior.
2 mm distal right ureteral calculus without significant right-sided hydroureteronephrosis.
Grossly stable bibasilar pulmonary nodules suspicious for metastatic disease.
No enterocolitis
Prior GI Procedures:
EGD: 07/2022 [facility] - Tortuous esophagus.
- Benign-appearing esophageal stenosis. Dilated to
15mm. Biopsied distal and proximal for EoE
- LA Grade C esophagitis with no bleeding.
- Food in the lower third of the esophagus. Removal
was successful.
- No gross lesions in the entire stomach.
- Erythematous duodenopathy.
EGD : 10/2022 [facility] - Tortuous esophagus.
- Small hiatal hernia.
- Dilation performed in the lower third of the
esophagus to 18mm due to resistance.
- Erythematous mucosa in the stomach. Biopsied.
- Normal examined duodenum.
Colonoscopy: none
Assessment / Plan
-
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
repair presents with multiple symptoms including chest pain, chills, mid abdominal pain and diarrhea over the last 2 weeks. On admission concern for UTI with Acute on chronic CKD with creat up to 7.5. CT A/P with oral contrast was completed with
concern for several distal left ureteral calculi up to 7 mm with left hydro. Also noted 2 mm distal right ureteral calculus without right hydro and pulm nodules concern for mets. no enterocolitis. For urology and nephrology consult. In review with
patient he state he began with diarrhea about 2 weeks ago. Prior to that time stool were formed daily or every other day. Now 3-4 loose stools daily without blood. Abdominal pain is mid abdomen intermittent. He is unable to state what makes pain
better or worse. He denies any recurrent travel, abx, or sick contacts. No change in medication. No hx colonoscopy in past.
-diarrhea
-abdominal pain
-chest pain on admission
-PARUL with hx CKD- stage 5
-CT with concern for distal left ureteral calculus with left hydro
-prostate Ca with prior radiation hx chronic obstructive process with b/l nephrostomy tubes for obstructive uropathy
-CT with pulm nodule
-hypokalemia
other med problems:
-hx pancreatic cyst
PLAN:
etiology of diarrhea related to infectious etiology, secondary to urologic issue with current PARUL/hydro, med related vs other
c-diff neg will check stool culture, Giardia, crypto
monitor stool output for volume and consistency
CT as noted neg for enterocolitis
await nephrology and urology consults
Pt current on antibiotics but started after onset of diarrhea
Pt denies new medication but Abiraterone 18-22 % diarrhea risk
trend hbg with some drop after admission likely anemia related to chronic kidney disease
replete K
cont diet as tolerated will add low lactose restriction
-
-
Thank you for consultation and allowing me to participate in the patient's care. Please call the construction services technician GI physician during the after hours with any questions or concerns.
--- NOTE | 2024-01-26 12:10 | PTCARENOTE ---
pt seen in IR per Dr. Lam's request. B/L nephrostomy tubes re-sutured and dressed by Arabella Molina RTR. sites clean dry and intact.
[2024-01-26 14:14] LABS: Troponin I 0.017 ng/ml
--- NOTE | 2024-01-26 15:00 | W.CON.NEPH ---
Consultation
-
Date/Time Consultation Requested: 01/26/24 1100
Date/Time Consultation Performed: 01/26/24 1400
Requesting Provider: Dr. Shields
Performing Provider: Dr Beckford
Reason for Consultation: PARUL
Medical History
-
Chief Complaint: Abdominal pain
History of Present Illness:
This is a 78-year-old gentleman who has stage IV prostate cancer on abiraterone therapy, who also has bilateral nephrostomy tubes given obstruction. These have been present for several years and are changed every 3 months. He is due for his next
nephrostomy change in February. 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 He does have CKD 4 with baseline creatinine approximately 3.9. He follows with Dr. Burciaga in the office. He has seen his oncologist last Wednesday and he
was already not feeling quite as well as usual. Over the next week he began feeling worse to the point where he almost did not feel like getting out of bed. His appetite decreased he says that he had only had about a bowl to have a cereal over the
entire week. He did maintain good fluid intake thinking closer to 1 gallon of fluid per day as per his usual and had had no issues with taking his medications as an outpatient. However given worsening nausea and some abdominal discomfort as well
as some development of diarrhea he came to the urgency room for evaluation. He was noted to have a creatinine of 7.5. CT scan shows new mild left hydronephrosis, bilateral kidney stones.
Past Medical History
Prostate cancer stage IV, CKD 4, bilateral percutaneous nephrostomies, bilateral nephrolithiasis, TURP, hernia repair, cataract surgery, throat polyp resection, rotator cuff surgery
Social History
Tobacco: Non-Smoker
Alcohol: None
Drug: None
Family History
Family History: Not Pertinent
Allergies / Home Medications
Allergy/AdvReac Type Severity Reaction Status Date / Time
No Known Allergies Allergy Verified 04/19/23 13:12
�Medication �Instructions �Recorded �Confirmed �Type
polyethylene glycol 3350 17 gram 17 grams PO BID PRN constipation 03/03/22 01/25/24 History
oral powder packet
sodium bicarbonate 650 mg tablet 1,300 mg PO BID Kidney Disease 03/03/22 01/25/24 History
abiraterone 250 mg tablet 1,000 mg PO DAILY Cancer 07/14/22 01/25/24 History
prednisone 5 mg tablet 5 mg PO DAILY Autoimmune Disorder 07/14/22 01/25/24 History
calcium acetate 667 mg tablet 667 mg PO DAILY Kidney Disease 04/19/23 01/25/24 History
amlodipine 2.5 mg tablet 2.5 mg PO DAILY Blood Pressure 01/26/24 01/25/24 History
calcitriol 0.25 mcg capsule 0.25 mcg PO DAILY Supplement 01/26/24 01/25/24 History
Review of Systems
-
Nausea diarrhea, abdominal pain, decreased appetite. No change in urine output from nephrostomies. He rarely voids himself unless there is issue with the nephrostomy
All other systems: Negative unless noted
Physical Exam
Vital Signs
Vital Signs
Temp Pulse Resp BP Pulse Ox
100.2 F 70 16 124/63 95
01/26/24 08:17 01/26/24 08:17 01/26/24 08:17 01/26/24 08:17 01/26/24 08:17
Lab Results
WBC 9.1 10^3/uL (4.8-10.8) 01/26/24 06:36
RBC 2.72 10^6/uL (4.70-6.10) L 01/26/24 06:36
Hgb 8.3 g/dL (13.0-18.0) L 01/26/24 06:36
Hct 24.3 % (39.0-52.0) L 01/26/24 06:36
Plt Count 261 10^3/uL (130-400) 01/26/24 06:36
Sodium 139 mmol/L (135-145) 01/26/24 06:36
Potassium 2.9 mmol/L (3.5-5.1) L 01/26/24 06:36
Chloride 102 mmol/L (98-107) 01/26/24 06:36
Carbon Dioxide 17 mmol/L (22-30) L 01/26/24 06:36
BUN 82 mg/dl (9-20) H 01/26/24 06:36
Creatinine 6.7 mg/dL (0.7-1.3) H* 01/26/24 06:36
eGFR 7.86 01/26/24 06:36
Glucose 110 mg/dl (70-99) H 01/26/24 06:36
Calcium 7.8 mg/dl (8.4-10.2) L 01/26/24 06:36
Albumin 3.0 g/dl (3.5-5.0) L 01/26/24 06:36
Laboratory Tests
08/10/23 01/13/24
08:24 08:03
Hgb 10.5 L
Potassium 4.0
Creatinine 3.7 H 4.[address] abdomen pelvis on 01/26/2024 without IV contrast
IMPRESSION:
Several distal left ureteral calculi are present measuring up to 7 mm with associated mild left hydronephrosis, new from prior.
2 mm distal right ureteral calculus without significant right-sided hydroureteronephrosis.
Grossly stable bibasilar pulmonary nodules suspicious for metastatic disease.
Physical Exam
Patient is awake alert oriented and in no distress. Mood and affect were pleasant, insight and judgment were good. Pupils are equal round and reactive to light, extraocular movements are intact, sclera were anicteric. Hearing was normal, ears and
nose are intact. Oropharynx was clear. Neck was supple with trachea midline and no thyromegaly. Heart was regular rate and rhythm without rubs. Lower extremities without edema. Lungs were clear to auscultation bilaterally and with normal
excursion. Abdomen was soft, nontender, with normal active bowel sounds, and no hepatosplenomegaly. Skin was without rash and with normal turgor. Bilateral nephrostomy tubes noted clean dry and intact
Data Reviewed
-
Radiology: Image Personally Visualized and interpreted (Chest x-ray 01/25/2024 by my reading shows lower lobe atelectasis mild)
Medical Tests (Nuc Med, Echo etc): Image Personally Visualized and interpreted (EKG 01/25/2024 by read shows normal sinus rhythm left axis deviation incomplete right bundle branch block, nonspecific ST-T wave changes)
Labs: Labs Reviewed by me
Old Records: Reviewed
Assessment/Plan
-
Assessment
Diarrhea, nausea, failure to thrive
PARUL
CKD4, baseline creatinine 3.9
Metabolic acidosis
Stage IV prostate cancer
Hypokalemia
Bilateral percutaneous nephrostomy
Bilateral nephrolithiasis
New mild left hydronephrosis
Plan
IV fluids
Encourage p.o. intake
Replete potassium
Follow acidosis, oral bicarbonate may be added if needed
Urology evaluation, significance of left hydronephrosis is uncertain as his left retains nephrostomy tube is also the one that drains the best with the greatest output
Await urine cultures
GI evaluation in progress
Follow BMP
Check FENa
[2024-01-26 15:30] VITALS: BP 105/55
[2024-01-26 16:15] LABS: Urine Sodium 61 mmol/L (30-90)
--- NOTE | 2024-01-26 16:46 | W.PN.URO.CBU ---
Today's Communication / Plan
-
no new gu inoptut for now
Assessment / Plan
-
jaylyn prerenal doubt sdstomnes have impact on renal ftn Treat uti and check calcium levels and irad helga check patency of perc tubes the stones may be teacherous ti tattmpt removal espcially in pt with creatine 6.9 the cancer below the stones may
prove to be impssible to navigate to access rthe stones via he bladder and that antegrade removal is doifficult Noimne of these attempts would occur when pt acutely ill Will follopw
Diagnosis
-
Date of Service: January 26, 2024
-
Patient Diagnosis:stage 4 acp with mets and distal obstruction of both uretrs at level of prostae Te=reated with bilateral perc tubes At initial presentatio creat 12 then down to 1.9 adespite systemic treatment for prostae cance r Now fever
[place] and feeling poorly dx uti provably from perc tubes etc. creatinin eup but perc tubes appeasr patent and bladder wemlties from little urine that drains into bladder
Post Op Day:
Subjective
-
fatigued no colic
Objective
-
Vital Signs
Temp Pulse Resp BP Pulse Ox
99.1 F 79 20 105/55 100
01/26/24 15:30 01/26/24 15:30 01/26/24 15:30 01/26/24 15:30 01/26/24 15:30
Intake and Output
01/25/24 01/26/24 01/27/24
06:59 06:59 06:59
Intake Total 720 / 720 360 / 360
Output Total 300 / 300 410 / 410
Balance 420 / 420 -50 / -50
Intake:
Oral fluids 220 / 220
IV fluids (Total) 500 / 500 300 / 300
IV piggybacks 60 / 60
Output:
Urinary Drain Output (Total) 300 / 300 410 / 410
Left Nephrostomy A 250 / 250 310 / 310
Right Nephrostomy B 50 / 50 100 / 100
Laboratory Results
01/26/24 06:36
01/26/24 06:36
Review of Systems
-
: Flank Pain and Difficulty Voiding
Physical Exam
-
General - well developed, well nourished, no acute distress
Chest - clear bilaterally
Abdomen - soft, non-tender, positive bowel sounds, no CVAT, no incisional pain or distention
Genitalia - normal
Rectal - normal
Skin - warm & dry with no rash
Neuro - AOx3, no motor deficits
Extremities - no clubbing, no cyanosis, no edema
Incision - clean, dry
Dressing - clean, dry, intact
Care Review
Data Reviewed
Discussed with: Hospitalist and Nursing
CT Scan: Image Pers Reviewed
[2024-01-26 21:22] LABS: Blood Urea Nitrogen 77 mg/dl (9-20); Calcium 7.6 mg/dl (8.4-10.2); Carbon Dioxide 15 mmol/L (22-30); Chloride 105 mmol/L (98-107); Estimated Creatinine Clearance 10 ml/min; Glucose 120 mg/dl (70-99); Potassium 2.9 mmol/L (3.5-5.1); Sodium 139 mmol/L (135-145)
--- NOTE | 2024-01-26 21:49 | PTCARENOTE ---
critical creat and low K reported- order for k replacement see mar
[2024-01-26] MEDS: STERILE WATER FOR INJECTION 10 ML IV (22:00)
[2024-01-26] MEDS: MAXIPIME 1000 MG IV (22:00)
[2024-01-26] MEDS: KCL 160 MEQ IV (22:01)
[2024-01-26 23:00] VITALS: BP 115/56
[2024-01-27] MEDS: NSS 1000 IV (06:12)
[2024-01-27 07:45] VITALS: BP 125/65
[2024-01-27 07:48] LABS: Hematocrit 23.6 % (39.0-52.0); Mean Corp Hgb Conc. 33.9 g/dL (33.0-37.0); Mean Corpuscular Hgb 30.8 pg (27.0-31.0); Mean Corpuscular Volume 90.8 fL (80.0-94.0); Mean Platelet Volume 9.9 fL (7.4-10.4); Platelet Count 234 10^3/uL (130-400); Red Cell Dist. Width 13.3 % (11.5-14.5); White Blood Cell Count 7.4 10^3/uL (4.8-10.8)
[2024-01-27 08:11] LABS: Blood Urea Nitrogen 75 mg/dl (9-20); Calcium 7.7 mg/dl (8.4-10.2); Carbon Dioxide 16 mmol/L (22-30); Chloride 110 mmol/L (98-107); Estimated Creatinine Clearance 10 ml/min; Glucose 103 mg/dl (70-99); Potassium 3.1 mmol/L (3.5-5.1); Sodium 144 mmol/L (135-145); eGFR 8.97
[2024-01-27] MEDS: HEPARIN 5000 UNITS SC ×2 (08:53→19:49)
--- NOTE | 2024-01-27 09:31 | W.PN.GI.CBS2 ---
Addendum entered and electronically signed by Dami Garcia DO 01/27/24 14:44:
I saw and examined the patient.
The BARREL LINER's note was reviewed and I agree with the note.
Comment: Mr. 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
stools over the past two weeks. Denies any nocturnal symptoms and specifically notes 1-2 looser stools for less than two weeks. No prior colonoscopy in the past or prior chronic diarrhea. Had subjective chills as well but no other fevers, sick
contacts, travel or other new medications. Although he does note receiving oral contrast for his CT scan which resulted in significant diarrhea. CT Abd/pelvis unrevealing for any bowel or rectal wall thickening or other findings to suggest
enterocolitis. Etiology of acute, non-bloody, watery diarrhea appears most likely infectious. He has never had a prior colonoscopy and concern for advanced prostate cancer which is on the differential however no chronicity of symptoms making
infectious more likely given his symptoms and reassuring CT imaging without any rectal wall thickening or other abnormality. Possibly medication related but without chronic symptoms. C Diff testing (-) but would benefit from further infectious
work-up and stool studies. Currently his abdominal pain is improving and tolerating diet and likely related to gas discomfort secondary to diarrhea. No further episodes of diarrhea over the past 24 hours or bloody stools.
#Acute, Non-bloody Diarrhea- IMPROVING
#Abdominal Discomfort #Bloating
#Hx of Prostate Cancer (s/p prior XRT) c/b
#Obstructive Uropathy #PARUL on CKD
Recommendations:
- Dairy-free, low-fat, low-residue/low-fiber diet
- Follow-up infectious stool studies- stool culture, Giardia, crypto
- Not c/w with abx-associated diarrhea given recent abx time-course and fine to continue IV abx as per primary team
- Defer further chronic w/u at this time and as this seems to be improving and nearly resolved as of today
- Monitor stools and/or blood while inpatient
- May trial Simethicone PRN for gas/bloating
- No plans for endoscopic evaluation at this time
- Rest of care as outlined below
Given improving and near-resolution of symptoms, GI team will sign-off. Please call back with any questions or concerns.
Original Note:
Today's Communication / Plan
-
etiology of diarrhea related to infectious etiology, secondary to urologic issue with current PARUL/hydro, med related vs other
improved diarrhea today
c-diff , Giardia , crypto, ecoli neg other cx pending
monitor stool output for volume and consistency -- now improving
CT as noted neg for enterocolitis
s/p nephrology and urology consults with creat 6 range
Pt current on antibiotics but started after onset of diarrhea
Pt denies new medication but Abiraterone 18-22 % diarrhea risk
trend hbg with some drop after admission likely anemia related to chronic kidney disease no signs of active GI bleeding
replete K per medical team as persistently low
add Simethicone PRN for gas/bloating
cont low lactose restriction add low fiber if recurrent diarrhea
Assessment / Plan
-
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
repair presents with multiple symptoms including chest pain, chills, mid abdominal pain and diarrhea over the last 2 weeks. On admission concern for UTI with Acute on chronic CKD with creat up to 7.5. CT A/P with oral contrast was completed with
concern for several distal left ureteral calculi up to 7 mm with left hydro. Also noted 2 mm distal right ureteral calculus without right hydro and pulm nodules concern for mets. no enterocolitis. For urology and nephrology consult. In review with
patient he state he began with diarrhea about 2 weeks ago. Prior to that time stool were formed daily or every other day. Now 3-4 loose stools daily without blood. Abdominal pain is mid abdomen intermittent. He is unable to state what makes pain
better or worse. He denies any recurrent travel, abx, or sick contacts. No change in medication. No hx colonoscopy in past.
-diarrhea
-abdominal pain
-chest pain on admission
-PARUL with hx CKD- stage 5
-CT with concern for distal left ureteral calculus with left hydro
-prostate Ca with prior radiation hx chronic obstructive process with b/l nephrostomy tubes for obstructive uropathy
-CT with pulm nodule
-hypokalemia
other med problems:
-hx pancreatic cyst
PLAN:
etiology of diarrhea related to infectious etiology, secondary to urologic issue with current PARUL/hydro, med related vs other
improved diarrhea today
c-diff , Giardia , crypto, ecoli neg other cx pending
monitor stool output for volume and consistency -- now improving
CT as noted neg for enterocolitis
s/p nephrology and urology consults with creat 6 range
Pt current on antibiotics but started after onset of diarrhea
Pt denies new medication but Abiraterone 18-22 % diarrhea risk
trend hbg with some drop after admission likely anemia related to chronic kidney disease no signs of active GI bleeding
replete K per medical team as persistently low
add Simethicone PRN for gas/bloating
cont low lactose restriction add low fiber if recurrent
Subjective
Subjective
Date of Service: January 27, 2024
01/25 stool but pt reports improved diarrhea today with no stools on low lactose diet
Objective
Data Reviewed
Laboratory Data:
Laboratory Results
01/27/24 07:06
01/27/24 07:06
Laboratory Results
Total Bilirubin 0.3 mg/dl (0.2-1.3) 01/26/24 06:36
AST 28 U/L (17-59) 01/26/24 06:36
ALT 13 U/L (0-50) 01/26/24 06:36
Alkaline Phosphatase 82 U/L (38-126) 01/26/24 06:36
Lipase 116 U/L (23-300) 01/25/24 20:29
Vital Signs and I&O:
Vital Signs
Temp Pulse Resp BP Pulse Ox
98.6 F 85 20 125/65 97
01/27/24 07:45 01/27/24 07:45 01/27/24 07:45 01/27/24 07:45 01/27/24 07:45
I&O
01/26/24 01/27/24 01/28/24
06:59 06:59 06:59
Intake Total 720 / 720 3300 / 3300
Output Total 300 / 300 1685 / 1685
Balance 420 / 420 1615 / 1615
Physical Exam
Physical Exam
HEENT: Anicteric and Moist mucous membranes
Cardiology: Normal Sinus Rhythm
Pulmonary: Clear
GI: Soft, Non Distended, Non Tender and Other (urostomy tube noted b/l )
Extremities: No Edema
Neuro: Non Focal
[2024-01-27] MEDS: KCL 40 MEQ PO ×2 (09:45→21:27)
[2024-01-27] MEDS: MYLICON 80 MG PO (09:49)
--- NOTE | 2024-01-27 11:03 | W.PN.URO.CBU ---
Today's Communication / Plan
-
no gu changes
Assessment / Plan
-
jaylyn prerenal doubt sdstomnes have impact on renal ftn Treat uti and check calcium levels and irad helga check patency of perc tubes the stones may be teacherous ti tattmpt removal espcially in pt with creatine 6.9 the cancer below the stones may
prove to be impssible to navigate to access rthe stones via he bladder and that antegrade removal is doifficult Noimne of these attempts would occur when pt acutely ill Will follopw
Diagnosis
-
Date of Service: January 27, 2024
-
Patient Diagnosis:
Post Op Day:
Patient Diagnosis:stage 4 acp with mets and distal obstruction of both uretrs at level of prostae Te=reated with bilateral perc tubes At initial presentatio creat 12 then down to 1.9 adespite systemic treatment for prostae cance r Now fever
[place] and feeling poorly dx uti provably from perc tubes etc. creatinin eup but perc tubes appeasr patent and bladder wemlties from little urine that drains into bladder
Post Op Day:
Subjective
-
feels better
Objective
-
Vital Signs
Temp Pulse Resp BP Pulse Ox
98.6 F 85 20 125/65 97
01/27/24 07:45 01/27/24 07:45 01/27/24 07:45 01/27/24 07:45 01/27/24 07:45
Intake and Output
01/26/24 01/27/24 01/28/24
06:59 06:59 06:59
Intake Total 720 / 720 3300 / 3300
Output Total 300 / 300 1685 / 1685
Balance 420 / 420 1615 / 1615
Intake:
Oral fluids 220 / 220 680 / 680
IV fluids (Total) 500 / 500 2300 / 2300
IV piggybacks 320 / 320
Output:
Urinary Drain Output (Total) 300 / 300 1685 / 1685
Left Nephrostomy A 250 / 250 1410 / 1410
Right Nephrostomy B 50 / 50 275 / 275
Laboratory Results
01/27/24 07:06
01/27/24 07:06
Review of Systems
-
: Difficulty Voiding and Dark Urine
Physical Exam
-
General - well developed, well nourished, no acute distress
Chest - clear bilaterally
Abdomen - soft, non-tender, positive bowel sounds, no CVAT, no incisional pain or distention
Genitalia - normal
Rectal - normal
Skin - warm & dry with no rash
Neuro - AOx3, no motor deficits
Extremities - no clubbing, no cyanosis, no edema
Incision - clean, dry
Dressing - clean, dry, intact
Care Review
Data Reviewed
Discussed with: Nursing
--- NOTE | 2024-01-27 11:48 | W.PN.NEPH.PH ---
Today's Communication / Plan
-
IVF with bicarb
Assessment/Plan
-
Assessment
Diarrhea, nausea, failure to thrive
PARUL
CKD4, baseline creatinine 3.9
Metabolic acidosis
Stage IV prostate cancer
Hypokalemia
Bilateral percutaneous nephrostomy
Bilateral nephrolithiasis
New mild left hydronephrosis
Plan
IV fluids with bicarb
Replete potassium
Follow acidosis, oral bicarbonate as well
Await urine cultures
follow BMP
-
-
Date of Service: January 27, 2024
CC / HPI / ROS
-
Chief Complaint:
PARUL
History of Present Illness:
PARUL/Cr better at 6
K low at 3.1
Acidosis persists at 16
good output from bilateral PCN
Review of Systems:
no CP/SOB
Labs
-
Labs:
WBC 7.4 10^3/uL (4.8-10.8) 01/27/24 07:06
RBC 2.60 10^6/uL (4.70-6.10) L 01/27/24 07:06
Hgb 8.0 g/dL (13.0-18.0) L 01/27/24 07:06
Hct 23.6 % (39.0-52.0) L 01/27/24 07:06
Plt Count 234 10^3/uL (130-400) 01/27/24 07:06
Sodium 144 mmol/L (135-145) 01/27/24 07:06
Potassium 3.1 mmol/L (3.5-5.1) L 01/27/24 07:06
Chloride 110 mmol/L (98-107) H 01/27/24 07:06
Carbon Dioxide 16 mmol/L (22-30) L 01/27/24 07:06
BUN 75 mg/dl (9-20) H 01/27/24 07:06
Creatinine 6.0 mg/dL (0.7-1.3) H* 01/27/24 07:06
eGFR 8.97 01/27/24 07:06
Glucose 103 mg/dl (70-99) H 01/27/24 07:06
Calcium 7.7 mg/dl (8.4-10.2) L 01/27/24 07:06
Albumin 3.0 g/dl (3.5-5.0) L 01/26/24 06:36
Physical Exam
-
Vital Signs:
Vital Signs
Temp Pulse Resp BP Pulse Ox
98.6 F 85 20 125/65 97
01/27/24 07:45 01/27/24 07:45 01/27/24 07:45 01/27/24 07:45 01/27/24 07:45
Cardiovascular:: Regular rate and rhythm
Respiratory:: Bilateral: Coarse
Lung Excursion:: Normal
Abdomen:: Nontender and Soft
Bowel Sounds:: Normal
Extremity Edema:: None: Bilateral:
[2024-01-27 15:00] VITALS: BP 101/63
--- NOTE | 2024-01-27 15:52 | CM ---
Patient seen bedside, reports no concerns to CM at this time, will follow for all discharge planning needs.
Plan; home no needs, watch for VN needs.
--- NOTE | 2024-01-27 17:03 | W.PN.HOSP.TC ---
Today's Communication/Plan
-
Continue antibiotics
Potassium replaced
Symptoms improving
Assessment / Plan
Assessment / Plan
Physical Exam
General: Well Developed, Well Nourished and No Apparent Distress
HEENT: Normocephalic, Moist mucous membranes and Atraumatic
Respiratory: Clear
Cardiac: S1/S2 and Regular Rhythm
GI: Soft, Non Distended, Normal Bowel Sounds and Tender (lower abdomen)
Musculoskeletal: No Cyanosis and No Edema
Skin: Warm. Dry.
Neuro: Nonfocal/grossly intact
Chest X-Ray (as per radiologist's report)
'IMPRESSION:
Mild left basilar probable atelectasis.'
CT Abdomen/Pelvis (as per radiologist's report)
'IMPRESSION:
Several distal left ureteral calculi are present measuring up to 7 mm with associated mild left hydronephrosis, new from prior.
2 mm distal right ureteral calculus without significant right-sided hydroureteronephrosis.
Grossly stable bibasilar pulmonary nodules suspicious for metastatic disease......
......There is no CT evidence for enterocolitis. There are moderate diffuse atherosclerotic calcifications, similar to prior.'
Assessment/Plan
78-year-old male with history of chronic bilateral nephrostomy tubes, here for multiple symptoms including abdominal pain, diarrhea, chest pain, cough and PARUL on CKD. IV fluids, cefepime.
# Concern for nephrostomy tube associated UTI
# Bilateral Percutaneous Nephrostomy Tubes
# Mild bilateral perinephric stranding? Mild bladder wall thickening?
# History of chronic urinary retention/ureteral obstruction/post bilateral nephrostomy tubes
# Moderate left and severe right renal scarring
-Urinalysis positive
-CT abdomen pelvis pending to evaluate for pyelonephritis/nephrostomy tube obstruction
-Urine culture with greater than 100k mixed debbie, probably contamination
-IV fluids
-Cefepime switched to Ceftriaxone based on prior cultures
-Nephrostomy tube sutures are not intact -- consulted Interventional Radiology, appreciate their evaluation and recommendations
#Abdominal Pain
#Diarrhea - IMPROVING
-C. diff negative
-Consulted GI, appreciate their evaluation and recommendations
-Continue dairy-free, low-fat, low-residue/low-fiber diet
-Simethicone PRN for gas/bloating
-Follow stool studies
#Moderate to severe aortic calcification?
#Prostate brachytherapy pellets?
# PARUL on CKD 4
-Follows with Dr. Burciaga outpatient
-Baseline creatinine is 3.9
-Continue IV fluids with bicarb
-Creatinine of 7.5 from 4.9 previously. Today 6.0.
-CT abdomen pelvis noted
-Continue sodium bicarbonate if needed, as per nephrology
-Nephrology consulted
#Hypokalemia
-Potassium replaced again
-Recheck BMP
# Acute cough/chest pain
-Chest x-ray shows mild left basilar atelectasis
-Mucinex
# Loose stool/diarrhea
-Continue to monitor
-Stool studies and C. difficile negative so far
-Consulted GI, appreciate evaluation and recommendations
#Essential hypertension
#Stage IV prostate cancer on abiraterone therapy
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
#Status post TURP
Code Status: Full code
DVT prophylaxis: Heparin subq. SCDs.
Regular diet
Anticipated Discharge: > 48 hours
Subjective/Interval History
-
Date of Service: January 27, 2024
Patient was seen and examined. He denied any chest pain or abdominal pain, or any other complaints.
Objective Data
-
Labs:
Laboratory Results
01/27/24
07:06
WBC 7.4
Hgb 8.0 L
Hct 23.6 L
Plt Count 234
Sodium 144
Potassium 3.1 L
Chloride 110 H
Carbon Dioxide 16 L
BUN 75 H
Creatinine 6.0 H*
Glucose 103 H
Calcium 7.7 L
Vital Signs:
Vital Signs
Temp Pulse Resp BP Pulse Ox
99.1 F 83 20 101/63 97
01/27/24 15:00 01/27/24 15:00 01/27/24 15:00 01/27/24 15:00 01/27/24 15:00
I&O
01/26/24 01/27/24 01/28/24
06:59 06:59 06:59
Intake Total 720 / 720 3300 / 3300
Output Total 300 / 300 1685 / 1685
Balance 420 / 420 1615 / 1615
[2024-01-27] MEDS: SODIUM BICARBONATE 650 MG PO ×2 (17:08→21:27)
[2024-01-27] MEDS: SODIUM BICARBONATE 1150 MEQ IV (17:10)
[2024-01-27] MEDS: ROCEPHIN 1000 MG IV (18:36)
[2024-01-27] MEDS: STERILE WATER FOR INJECTION 10 ML INJ (18:36)
[2024-01-27] MEDS: FLUSH (NSS) 2 FLUSH IV (18:37)
[2024-01-27] MEDS: PHOSLO 667 MG PO (18:40)
[2024-01-27] MEDS: ROCALTROL 0.25 MCG PO (18:40)
[2024-01-27] MEDS: DELTASONE 5 MG PO (18:40)
[2024-01-27] MEDS: NON-FORMULARY ITEM PO (19:53)
[2024-01-27 23:01] LABS: Blood Urea Nitrogen 65 mg/dl (9-20); Calcium 7.5 mg/dl (8.4-10.2); Carbon Dioxide 17 mmol/L (22-30); Chloride 109 mmol/L (98-107); Estimated Creatinine Clearance 11 ml/min; Glucose 141 mg/dl (70-99); Potassium 3.5 mmol/L (3.5-5.1); Sodium 140 mmol/L (135-145); eGFR 9.54
[2024-01-27 23:34] VITALS: BP 112/68
[2024-01-28] MEDS: SODIUM BICARBONATE 1150 MEQ IV ×2 (05:36→20:44)
--- NOTE | 2024-01-28 06:44 | W.PN.URO.CBU ---
Today's Communication / Plan
-
continue perc tubes
outpt f/u with dr bhardwaj
Assessment / Plan
-
met prostate cancer
bilateral perc tubes due to malig obstruction of ureters
renal insufficiency
perc tubes functional
minimal improvement in cr level- nephrology following
no evid of infx
stones noted in ureter
no indication for urologic intervention at this time
plan for outpt f/u with dr bhardwaj on feb 08 for lupron and discussion of stones
Diagnosis
-
Date of Service: January 28, 2024
-
:
Patient Diagnosis
metastatic prostate cancer
bilateral ureteral obstruction
renal insufficiency
Subjective
-
pt feels ok
perc tubes draining well and clear
ucx mixed debibe- wbc nl and no fevers
Objective
-
Vital Signs
Temp Pulse Resp BP Pulse Ox
99.3 F 72 18 112/68 96
01/27/24 23:34 01/27/24 23:34 01/27/24 23:34 01/27/24 23:34 01/27/24 23:34
Intake and Output
01/26/24 01/27/24 01/28/24
06:59 06:59 06:59
Intake Total 720 / 720 3300 / 3300 2560 / 2560
Output Total 300 / 300 1685 / 1685 2680 / 2680
Balance 420 / 420 1615 / 1615 -120 / -120
Intake:
Oral fluids 220 / 220 680 / 680 1500 / 1500
IV fluids (Total) 500 / 500 2300 / 2300 1060 / 1060
IV piggybacks 320 / 320
Output:
Urinary Drain Output (Total) 300 / 300 1685 / 1685 2680 / 2680
Left Nephrostomy A 250 / 250 1410 / 1410 2049
Right Nephrostomy B 50 / 50 275 / 275 630 / 630
Review of Systems
-
Constitutional: Fatigue
Respiratory: No Symptoms
Cardiac: No Symptoms
Abdomen/GI: No Symptoms
Physical Exam
-
General - no acute distress
Abdomen - soft, non-tender, bilateral perc tubes in place
[2024-01-28 07:00] VITALS: BP 108/60
[2024-01-28 07:41] LABS: Hematocrit 22.4 % (39.0-52.0); Hemoglobin 7.6 g/dL (13.0-18.0); Mean Corp Hgb Conc. 33.9 g/dL (33.0-37.0); Mean Corpuscular Hgb 31.5 pg (27.0-31.0); Mean Corpuscular Volume 92.9 fL (80.0-94.0); Mean Platelet Volume 10.1 fL (7.4-10.4); Platelet Count 231 10^3/uL (130-400); Red Blood Cell Count 2.41 10^6/uL (4.70-6.10); Red Cell Dist. Width 13.3 % (11.5-14.5); White Blood Cell Count 7.4 10^3/uL (4.8-10.8)
[2024-01-28] MEDS: NON-FORMULARY ITEM 1000 MG PO (09:07)
[2024-01-28] MEDS: PHOSLO 667 MG PO (09:09)
[2024-01-28] MEDS: SODIUM BICARBONATE 650 MG PO ×3 (09:09→20:45)
[2024-01-28] MEDS: HEPARIN 5000 UNITS SC ×2 (09:10→20:42)
[2024-01-28] MEDS: DELTASONE 5 MG PO (09:10)
[2024-01-28] MEDS: ROCALTROL 0.25 MCG PO (09:10)
--- NOTE | 2024-01-28 09:21 | CON.ID ---
Consultation
-
Date/Time Consultation Requested: 01/28/24 7:16
Date/Time Consultation Performed: 01/28/24 9:21
Requesting Provider: Dr Lam
Performing Provider: Dr Cummings
Reason for Consultation: Concern for complicated UTI. History of Staph and Strep in the Urine
Chief Complaint / Past History
Chief Complaint
abdominal pain
History of Present Illness
Mr Merrill is a 78 year old male with history of high grade prostate cancer with obstruction of the prevesical space with mets to bone and lung, s/p placement of percutaneous nephrostomy tube changed Q3 months, CKD4 and intermittent UTIs. Then with
lower abdominal pain for about 1 weeks, chills and diarrhea. No flank pain. No melissa fevers No nausea or vomiting. No preceeding constipation. + cough and intermittent chest pains. No decreased UOP. Also of note, both urine bags are turning
purple blue - patient reports he hasnt noticed it previously.
Since arrival here tmax is 100.2, bp stable, wbc 7.4, hgb 7.6, plt 231, L shift was noted on arrival, CR baseline appears to be around 3.8 on arrival it was 7.5 and now it is 5.3, UA (unclear from which side it was taken) 50-60 wbc/hpf, many
bacteria, 01/24 urine culture 100K mixed debbie, 01/25 CT a/p with oral contrast only distal L ureteral calculi with mild L hydronephrosis - new, bilateral PCN tubes. Since arrival the L PCN tube has had steady increase in UOP from about 800ccs to 1.7
L yesterday (described as the dominant side), the R PCN tube initially with about 175 ccs and yesterday improved to 530 ccs. Of note after oral contrast diarrhea transiently worsened, now resolving.
Past History
Additional Past Medical History:
HTN
Additional Past Surgical History:
bilateral percutaneous nephrostomies, bilateral nephrolithiasis, TURP, hernia repair, cataract surgery, throat polyp resection, rotator cuff surgery
Allergy History:
No Known Allergies Allergy (Verified 04/19/23 13:12)
Medications Reviewed: Yes
Social History
Tobacco: Non-Smoker
Alcohol: None
Drug: None
Personal:
Living: With Family
Family History
Family History: Not Pertinent
Review of Systems
Review of Systems
General: Negative Fever or Chills
All systems: All other systems were reviewed and were negative
Vital Signs
Temp Pulse Resp BP Pulse Ox
99.3 F 72 18 112/68 96
01/27/24 23:34 01/27/24 23:34 01/27/24 23:34 01/27/24 23:34 01/27/24 23:34
Physical Exam
Physical Exam
Constitutional: No Acute Distress
Cardiovascular: Regular Rate and S1/S2; Negative Murmur or Rub
Pulmonary: Clear and Symmetric; Negative Wheezes, Rales or Rhonchi
Gastrointestinal: Soft, Non Tender, Non Distended and Normal Bowel Sounds
Genito-Urinary: Clear Urine; Negative Suprapubic Tenderness or CVA Tenderness
Skin: Warm and Dry; Negative Rash or Jaundice
Lines: Other (R urine bag is faint purple, L urine bag is faint blue)
Lab / Diagnostic Study Results
01/28/24 06:51
Abs Immat Gran (auto) 0.2 10^3/uL (0-0.05) H 01/26/24 06:36
Absolute Neuts (auto) 7.3 10^3/uL (1.4-6.5) H 01/26/24 06:36
Absolute Lymphs (auto) 0.5 10^3/uL (1.2-3.4) L 01/26/24 06:36
Absolute Monos (auto) 0.8 10^3/uL (0.1-0.6) H 01/26/24 06:36
Absolute Basos (auto) 0.0 10^3/uL (0-0.2) 11/06/24 06:36
Immature Gran % 2.5 % (0-0.5) H 01/26/24 06:36
Neutrophils % 81.1 % (42.2-75.2) H 01/26/24 06:36
Lymphocytes % 5.1 % (20.5-51.1) L 01/26/24 06:36
Monocytes % 9.1 % (1.7-9.3) 01/26/24 06:36
Eosinophils % 2.0 % (0-6) 01/26/24 06:36
Basophils % 0.2 % (0-2) 01/26/24 06:36
Lactic Acid 0.7 mmol/L (0.7-2.0) 01/26/24 06:36
Ur Squamous Epith Cells 0-2 /LPF (Few) 01/25/24 20:46
Microbiology Results
Micro:
01/25/24 20:46 Urine Culture - Final
Urine
01/26/24 03:42 Salmonella/Shigella Culture - Preliminary
Feces/Stool Culture in Progress
Campylobacter Culture - Preliminary
Culture in Progress
Shiga Toxin Test - Final
No E. coli Shiga Toxin 1 or 2 detected.
01/26/24 03:42 Cryptosporidium/Giardia - Final
Feces/Stool Negative for Cryptosporidium and/or Giardia Lamblia
antigens.
C. difficile GDH Antigen & Toxins - Final
Negative for toxigenic C.difficile
01/25/24 17:25 Influenza Types A & B ([facility]) - Final
Nasal Swab Negative for Influenza A & B, NAAT
Negative results must be combined with clinical observations
and patient history.
Nucleic Acid Amplification test (NAAT)performed on the
[employer] platform.
Assessment / Plan
Chronic BL PCN tubes
PARUL on CKD4
- unclear to me which nephrostomy tube was sampled patient believes it was the right; both would be colonized with bacteria
- new obstruction on the L with mild hydronephrosis however with excellent UOP on the L and not planned for interventions due to both cancer and stones
- tubes last changed out about 1.5 months ago
- urine culture from 01/24 was polymicrobial - nephrostomy tubes will universally become colonized with time. He is not giving me definitive symptoms of UTI and gastroenteritis/diarrhea may explain the chills he had last week. Acknowledge purple
urine bag syndrome however this can be due to colonization as well - doesnt definitively imply infection. Discussed with patient and at this point favor stopping antibiotics - he has already had three days of broad spectrum therapy, if there is
relapse of chills, new fevers or new flank pain off of antibiotics then would consider bilateral nephrostomy tube exchange, reculture ideally from both new tubes and then plan a course of antibiotics. We discussed this plan and he is agreeable.
- can observe overnight, consider dc in the am
Diarrhea - nonbloody
- resolving, may have been self limited
- C diff, giardia, crypto and Shiga toxin all negative, salmonella and campylobacter prelim
[2024-01-28 09:32] LABS: Blood Urea Nitrogen 67 mg/dl (9-20); Calcium 7.7 mg/dl (8.4-10.2); Carbon Dioxide 20 mmol/L (22-30); Chloride 110 mmol/L (98-107); Estimated Creatinine Clearance 11 ml/min; Glucose 104 mg/dl (70-99); Iron 35 ug/dl (49-181); Potassium 3.8 mmol/L (3.5-5.1); Sodium 143 mmol/L (135-145); eGFR 10.41
[2024-01-28 09:40] LABS: Percent Saturation 18 % (20-50); Total Iron Binding Capacity 186 ug/dl (261-462)
[2024-01-28 10:34] LABS: Vitamin B12 494 pg/ml (239-931)
--- NOTE | 2024-01-28 10:53 | W.PN.NEPH.PH ---
Today's Communication / Plan
-
Follow BMP
Maintain sodium bicarbonate IV fluids another day
Assessment/Plan
-
Assessment
Diarrhea, nausea, failure to thrive
PARUL
CKD4, baseline creatinine 3.9
Metabolic acidosis
Stage IV prostate cancer
Hypokalemia
Bilateral percutaneous nephrostomy
Bilateral nephrolithiasis
New mild left hydronephrosis
Plan
Creatinine down to 5.3 with nonoliguric via nephrostomy tube
IV fluids with bicarb to continue another day
Hemodynamically labile
Follow acidosis, oral bicarbonate as well
No acute hemodialysis requirement
follow BMP
-
-
Date of Service: January 28, 2024
CC / HPI / ROS
-
Chief Complaint:
PARUL
History of Present Illness:
PARUL/Cr better at 5.3
K stable
Acidosis persists at 20
good output from bilateral PCN
Review of Systems:
no CP/SOB
Labs
-
Labs:
WBC 7.4 10^3/uL (4.8-10.8) 01/28/24 06:51
RBC 2.41 10^6/uL (4.70-6.10) L 01/28/24 06:51
Hgb 7.6 g/dL (13.0-18.0) L 01/28/24 06:51
Hct 22.4 % (39.0-52.0) L 01/28/24 06:51
Plt Count 231 10^3/uL (130-400) 01/28/24 06:51
Sodium 143 mmol/L (135-145) 01/28/24 06:51
Potassium 3.8 mmol/L (3.5-5.1) 01/28/24 06:51
Chloride 110 mmol/L (98-107) H 01/28/24 06:51
Carbon Dioxide 20 mmol/L (22-30) L 01/28/24 06:51
BUN 67 mg/dl (9-20) H 01/28/24 06:51
Creatinine 5.3 mg/dL (0.7-1.3) H* 11 06:51
eGFR 10.41 01/28/24 06:51
Glucose 104 mg/dl (70-99) H 01/28/24 06:51
Calcium 7.7 mg/dl (8.4-10.2) L 01/28/24 06:51
Albumin 3.0 g/dl (3.5-5.0) L 01/26/24 06:36
Physical Exam
-
Vital Signs:
Vital Signs
Temp Pulse Resp BP Pulse Ox
98.3 F 72 18 108/60 96
01/28/24 07:00 01/28/24 07:00 01/28/24 07:00 01/28/24 07:00 01/28/24 07:00
Cardiovascular:: Regular rate and rhythm
Respiratory:: Bilateral: Coarse
Lung Excursion:: Normal
Abdomen:: Nontender and Soft
Bowel Sounds:: Normal
Extremity Edema:: None: Bilateral:
Other Findings::
Bilateral PCNs
[2024-01-28 15:00] VITALS: BP 127/66
--- NOTE | 2024-01-28 15:37 | CM ---
CM reviewed chart, daughter Peg Petty present, asking to be added to contact list. Patient agreeable, daughter added to contact list, asking for update from nurse if possible. CM offered VN to patient, patient declining at this time. CM will
continue to follow for all discharge planning needs.
Plan; home no needs, declining VN.
--- NOTE | 2024-01-28 17:58 | W.PN.HOSP.TC ---
Today's Communication/Plan
-
Appreciate ID and urology and nephrology -- monitor patient overnight while off antibiotics
AM labs
Hopefully can discharge tomorrow
Assessment / Plan
Assessment / Plan
Physical Exam
General: Well Developed, Well Nourished and No Apparent Distress
HEENT: Normocephalic, Moist mucous membranes and Atraumatic
Respiratory: Clear
Cardiac: S1/S2 and Regular Rhythm
GI: Soft, Non Distended, Normal Bowel Sounds and Tender (lower abdomen)
Musculoskeletal: No Cyanosis and No Edema
Skin: Warm. Dry.
Neuro: Nonfocal/grossly intact
Chest X-Ray (as per radiologist's report)
'IMPRESSION:
Mild left basilar probable atelectasis.'
CT Abdomen/Pelvis (as per radiologist's report)
'IMPRESSION:
Several distal left ureteral calculi are present measuring up to 7 mm with associated mild left hydronephrosis, new from prior.
2 mm distal right ureteral calculus without significant right-sided hydroureteronephrosis.
Grossly stable bibasilar pulmonary nodules suspicious for metastatic disease......
......There is no CT evidence for enterocolitis. There are moderate diffuse atherosclerotic calcifications, similar to prior.'
Assessment/Plan
78-year-old male with history of chronic bilateral nephrostomy tubes, here for multiple symptoms including abdominal pain, diarrhea, chest pain, cough and PARUL on CKD. IV fluids, cefepime.
# Concern for nephrostomy tube associated UTI
# Bilateral Percutaneous Nephrostomy Tubes
# Mild bilateral perinephric stranding? Mild bladder wall thickening?
# History of chronic urinary retention/ureteral obstruction/post bilateral nephrostomy tubes
# Moderate left and severe right renal scarring
-Urinalysis positive
-CT abdomen pelvis pending to evaluate for pyelonephritis/nephrostomy tube obstruction
-Urine culture with greater than 100k mixed debbie, probably contamination
-IV fluids
-Cefepime switched to Ceftriaxone based on prior cultures -- but consulted ID and no antibiotics needed at this time, appreciate ID
-Nephrostomy tube sutures are not intact -- consulted Interventional Radiology, appreciate their evaluation and recommendations
-Per urology, no indication for urologic intervention at this time
-Plan for outpt f/u with dr bhardwaj on feb 08 for lupron and discussion of stones
#Abdominal Pain
#Diarrhea - IMPROVING
-C. diff negative
-Consulted GI, appreciate their evaluation and recommendations
-Continue dairy-free, low-fat, low-residue/low-fiber diet
-Simethicone PRN for gas/bloating
-Follow stool studies
#Moderate to severe aortic calcification?
#Prostate brachytherapy pellets?
# PARUL on CKD 4
-Follows with Dr. Burciaga outpatient
-Baseline creatinine is 3.9
-Continue IV fluids with bicarb
-Creatinine of 7.5 from 4.9 previously. Today 6.0.
-CT abdomen pelvis noted
-Continue sodium bicarbonate if needed, as per nephrology
-Nephrology consulted
#Hypokalemia - RESOLVED
-Potassium replaced again
-Recheck BMP
# Acute cough/chest pain
-Chest x-ray shows mild left basilar atelectasis
-Mucinex
# Loose stool/diarrhea
-Continue to monitor
-Stool studies and C. difficile negative so far
-Consulted GI, appreciate evaluation and recommendations
#Essential hypertension
#Stage IV prostate cancer on abiraterone therapy
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
#Status post TURP
Code Status: Full code
DVT prophylaxis: Heparin subq. SCDs.
Regular diet
Anticipated Discharge: Within 24 hours
Subjective/Interval History
-
Date of Service: January 28, 2024
Patient was seen and examined. He denied any pain or any complaints.
Objective Data
-
Labs:
Laboratory Results
01/28/24
06:51
WBC 7.4
Hgb 7.6 L
Hct 22.4 L
Plt Count 231
Sodium 143
Potassium 3.8
Chloride 110 H
Carbon Dioxide 20 L
BUN 67 H
Creatinine 5.3 H*
Glucose 104 H
Calcium 7.7 L
Vital Signs:
Vital Signs
Temp Pulse Resp BP Pulse Ox
98.1 F 82 18 127/66 96
01/28/24 15:00 01/28/24 15:00 01/28/24 15:00 01/28/24 15:00 01/28/24 15:00
I&O
01/27/24 01/28/24 01/29/24
06:59 06:59 06:59
Intake Total 3300 / 3300 2560 / 2560
Output Total 1685 / 1685 2680 / 2680
Balance 1615 / 1615 -120 / -120
[2024-01-28 23:32] VITALS: BP 119/62
[2024-01-29 07:00] VITALS: BP 131/73
[2024-01-29 07:38] LABS: Albumin 2.7 g/dl (3.5-5.0); Blood Urea Nitrogen 61 mg/dl (9-20); Calcium 7.6 mg/dl (8.4-10.2); Carbon Dioxide 28 mmol/L (22-30); Chloride 102 mmol/L (98-107); Estimated Creatinine Clearance 12 ml/min; Glucose 108 mg/dl (70-99); Potassium 3.4 mmol/L (3.5-5.1); Sodium 143 mmol/L (135-145)
[2024-01-29] MEDS: ROCALTROL 0.25 MCG PO (09:24)
[2024-01-29] MEDS: DELTASONE 5 MG PO (09:24)
[2024-01-29] MEDS: PHOSLO 667 MG PO (09:24)
[2024-01-29] MEDS: HEPARIN 5000 UNITS SC ×2 (09:24→20:10)
[2024-01-29] MEDS: SODIUM BICARBONATE 650 MG PO ×3 (09:24→21:20)
--- NOTE | 2024-01-29 09:42 | W.PN.NEPH.PH ---
Today's Communication / Plan
-
d/c further ivfs
follow bmp in am
Assessment/Plan
-
Assessment
Diarrhea, nausea, failure to thrive
PARUL
CKD4, baseline creatinine 3.9
Metabolic acidosis
Stage IV prostate cancer
Hypokalemia
Bilateral percutaneous nephrostomy
Bilateral nephrolithiasis
New mild left hydronephrosis
Plan
Creatinine down to 5.1with nonoliguric via nephrostomy tube
no more IVFs
Hemodynamically labile
Follow acidosis, oral bicarbonate as well
No acute hemodialysis requirement
follow BMP
-
-
Date of Service: January 29, 2024
CC / HPI / ROS
-
Chief Complaint:
PARUL
History of Present Illness:
PARUL/Cr better at 5.1
K stable
Metabolic acidosis resolved with sodium bicarb
good output from bilateral PCN
Review of Systems:
no CP/SOB
Nonoliguric
Labs
-
Labs:
Sodium 143 mmol/L (135-145) 01/29/24 06:41
Potassium 3.4 mmol/L (3.5-5.1) L 01/29/24 06:41
Chloride 102 mmol/L (98-107) 01/29/24 06:41
Carbon Dioxide 28 mmol/L (22-30) 01/29/24 06:41
BUN 61 mg/dl (9-20) H 01/29/24 06:41
Creatinine 5.1 mg/dL (0.7-1.3) H* 01/29/24 06:41
eGFR 10.90 01/29/24 06:41
Glucose 108 mg/dl (70-99) H 01/29/24 06:41
Calcium 7.6 mg/dl (8.4-10.2) L 1109/24 06:41
Albumin 2.7 g/dl (3.5-5.0) L 01/29/24 06:41
Physical Exam
-
Vital Signs:
Vital Signs
Temp Pulse Resp BP Pulse Ox
98.0 F 71 18 131/73 95
01/29/24 07:00 01/29/24 07:00 01/29/24 07:00 01/29/24 07:00 01/29/24 07:00
Cardiovascular:: Regular rate and rhythm
Respiratory:: Bilateral: Coarse
Lung Excursion:: Normal
Abdomen:: Nontender and Soft
Bowel Sounds:: Normal
Extremity Edema:: None: Bilateral:
Other Findings::
Bilateral PCNs
[2024-01-29 09:43] LABS: Hematocrit 21.6 % (39.0-52.0); Hemoglobin 7.3 g/dL (13.0-18.0); Mean Corp Hgb Conc. 33.8 g/dL (33.0-37.0); Mean Corpuscular Hgb 31.2 pg (27.0-31.0); Mean Corpuscular Volume 92.3 fL (80.0-94.0); Mean Platelet Volume 10.2 fL (7.4-10.4); Platelet Count 256 10^3/uL (130-400); Red Blood Cell Count 2.34 10^6/uL (4.70-6.10); Red Cell Dist. Width 13.3 % (11.5-14.5); White Blood Cell Count 7.7 10^3/uL (4.8-10.8)
[2024-01-29] MEDS: KCL 20 MEQ PO (10:58)
[2024-01-29] MEDS: NON-FORMULARY ITEM 1000 MG PO (10:59)
[2024-01-29 13:00] LABS: Iron 73 ug/dl (49-181)
[2024-01-29 13:03] LABS: Percent Saturation 39 % (20-50); Total Iron Binding Capacity 186 ug/dl (261-462)
--- NOTE | 2024-01-29 14:30 | W.PN.HOSP.TC ---
Today's Communication/Plan
-
Significant drop in Hgb since admission
Check stool for occult blood
Suspected anemia of kidney disease, iron studies are okay, EPO discussed with nephrology and hematology who will see patient
Assessment / Plan
Assessment / Plan
Physical Exam
General: Well Developed, Well Nourished and No Apparent Distress
HEENT: Normocephalic, Moist mucous membranes and Atraumatic
Respiratory: Clear
Cardiac: S1/S2 and Regular Rhythm
GI: Soft, Non Distended, Normal Bowel Sounds and Tender (lower abdomen)
Musculoskeletal: No Cyanosis and No Edema
Skin: Warm. Dry.
Neuro: Nonfocal/grossly intact
Chest X-Ray (as per radiologist's report)
'IMPRESSION:
Mild left basilar probable atelectasis.'
CT Abdomen/Pelvis (as per radiologist's report)
'IMPRESSION:
Several distal left ureteral calculi are present measuring up to 7 mm with associated mild left hydronephrosis, new from prior.
2 mm distal right ureteral calculus without significant right-sided hydroureteronephrosis.
Grossly stable bibasilar pulmonary nodules suspicious for metastatic disease......
......There is no CT evidence for enterocolitis. There are moderate diffuse atherosclerotic calcifications, similar to prior.'
Assessment/Plan
78-year-old male with history of chronic bilateral nephrostomy tubes, here for multiple symptoms including abdominal pain, diarrhea, chest pain, cough and PARUL on CKD. IV fluids, cefepime.
# Concern for nephrostomy tube associated UTI
# Bilateral Percutaneous Nephrostomy Tubes
# Mild bilateral perinephric stranding? Mild bladder wall thickening?
# History of chronic urinary retention/ureteral obstruction/post bilateral nephrostomy tubes
# Moderate left and severe right renal scarring
-Urinalysis positive
-CT abdomen pelvis pending to evaluate for pyelonephritis/nephrostomy tube obstruction
-Urine culture with greater than 100k mixed debbie, probably contamination
-IV fluids
-Cefepime switched to Ceftriaxone based on prior cultures -- but consulted ID and no antibiotics needed at this time, appreciate ID
-Nephrostomy tube sutures are not intact -- consulted Interventional Radiology, appreciate their evaluation and recommendations
-Per urology, no indication for urologic intervention at this time
-Plan for outpt f/u with dr bhardwaj on feb 08 for lupron and discussion of stones
#Worsening Normocytic Anemia
-Suspected at least in part due to anemia of chronic kidney disease
-Iron studies are okay
-Consideration for EPO: discussed with nephrology and consulted hematology
-Transfuse PRBC to maintain Hgb>7.
#Abdominal Pain
#Diarrhea - IMPROVING
-C. diff negative
-Consulted GI, appreciate their evaluation and recommendations
-Continue dairy-free, low-fat, low-residue/low-fiber diet
-Simethicone PRN for gas/bloating
-Follow stool studies
#Moderate to severe aortic calcification?
#Prostate brachytherapy pellets?
# PARUL on CKD 4
-Follows with Dr. Burciaga outpatient
-Baseline creatinine is 3.9
-Status post IV fluids with bicarb
-Creatinine of 7.5 from 4.9 previously. Today 5.1
-CT abdomen pelvis noted
-Continue sodium bicarbonate if needed, as per nephrology
-Nephrology consulted
#Hypokalemia
-Potassium replaced again
-Recheck BMP
# Acute cough/chest pain
-Chest x-ray shows mild left basilar atelectasis
-Mucinex
# Loose stool/diarrhea
-Continue to monitor
-Stool studies and C. difficile negative so far
-Consulted GI, appreciate evaluation and recommendations
#Essential hypertension
#Stage IV prostate cancer on abiraterone therapy
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
#Status post TURP
Code Status: Full code
DVT prophylaxis: Heparin subq. SCDs.
Regular diet
Anticipated Discharge: > 48 hours
Subjective/Interval History
-
Date of Service: January 29, 2024
Patient was seen and examined. He denied any complaints or symptoms except he had a bowel movement in bed.
Objective Data
-
Labs:
Laboratory Results
01/29/24 01/29/24 01/29/24
06:40 06:41 20:00
WBC 7.7 Pending
Hgb 7.3 L Pending
Hct 21.6 L Pending
Plt Count 256 Pending
Sodium 143
Potassium 3.4 L
Chloride 102
Carbon Dioxide 28
BUN 61 H
Creatinine 5.1 H*
Glucose 108 H
Calcium 7.6 L
Vital Signs:
Vital Signs
Temp Pulse Resp BP Pulse Ox
98.0 F 71 18 131/73 95
01/29/24 07:00 01/29/24 07:00 01/29/24 07:00 01/29/24 07:00 01/29/24 07:00
I&O
01/28/24 01/29/24 01/30/24
06:59 06:59 06:59
Intake Total 2560 / 2560 1440 / 1440
Output Total 2680 / 2680 2500 / 2500
Balance -120 / -120 -1060 / -1060
[2024-01-29 15:00] VITALS: BP 119/68
[2024-01-29 21:01] LABS: Hematocrit 22.9 % (39.0-52.0); Hemoglobin 7.9 g/dL (13.0-18.0); Mean Corp Hgb Conc. 34.5 g/dL (33.0-37.0); Mean Corpuscular Volume 92.7 fL (80.0-94.0); Mean Platelet Volume 9.9 fL (7.4-10.4); Platelet Count 275 10^3/uL (130-400); Red Blood Cell Count 2.47 10^6/uL (4.70-6.10); Red Cell Dist. Width 13.1 % (11.5-14.5); White Blood Cell Count 8.8 10^3/uL (4.8-10.8)
[2024-01-29 21:21] LABS: Blood Urea Nitrogen 59 mg/dl (9-20); Calcium 7.9 mg/dl (8.4-10.2); Carbon Dioxide 28 mmol/L (22-30); Chloride 102 mmol/L (98-107); Estimated Creatinine Clearance 13 ml/min; Glucose 179 mg/dl (70-99); Potassium 3.9 mmol/L (3.5-5.1); Sodium 141 mmol/L (135-145); eGFR 11.73
[2024-01-29 23:00] VITALS: BP 115/56
--- NOTE | 2024-01-30 00:50 | W.PN.UPDATE ---
Update Note
Progress Note Update
RN reports heme pos stools. Was negative earlier today. Stool brown colored without overt signs of bleeding.
Heme test ordered for drop in hemoglobin today.
Will hold heparin sq for now
Last HH 7.9 (improved from this am)
Cont to monitor hh
[2024-01-30 07:00] VITALS: BP 142/78
[2024-01-30 07:18] LABS: Hematocrit 23.3 % (39.0-52.0); Hemoglobin 7.5 g/dL (13.0-18.0); Mean Corp Hgb Conc. 32.2 g/dL (33.0-37.0); Mean Corpuscular Hgb 31.3 pg (27.0-31.0); Mean Corpuscular Volume 97.1 fL (80.0-94.0); Mean Platelet Volume 10.1 fL (7.4-10.4); Platelet Count 287 10^3/uL (130-400); Red Cell Dist. Width 13.2 % (11.5-14.5); White Blood Cell Count 8.5 10^3/uL (4.8-10.8)
[2024-01-30 07:30] LABS: Blood Urea Nitrogen 57 mg/dl (9-20); Calcium 7.9 mg/dl (8.4-10.2); Carbon Dioxide 25 mmol/L (22-30); Chloride 105 mmol/L (98-107); Estimated Creatinine Clearance 13 ml/min; Glucose 110 mg/dl (70-99); Potassium 3.8 mmol/L (3.5-5.1); Sodium 145 mmol/L (135-145); eGFR 11.73
[2024-01-30 07:59] LABS: Absolute Neutrophils -Man Diff 6.1 10^3/uL (1.4-6.5); Band Neutrophils 3 % (0-3); Eosinophils 2 % (0-6); Lymphocytes 9 % (20-51); Metamyelocytes 11 % (-); Monocytes 4 % (2-9); Myelocytes 2 % (-); Segmented Neutrophils 69 % (42-75)
[2024-01-30 08:00] LABS: Anisocytosis 1+; Hypochromasia Slight; Normal RBC Morphology No; Ovalocytes 1+; Platelets Checked Yes; Polychromasia Slight
[2024-01-30 08:01] LABS: Spherocytes 2+; Total Cells Counted 100
--- NOTE | 2024-01-30 09:50 | CON.ONC ---
Impression
Impression
Anemia of chronic kidney disease progressive stage IV
Plan
Plan
adequate iron stores with progressing renal failure-- EPO ordered; Discussed with nephrology as this may be a temporary manifestation pending recovery of renal function to baseline; currently without complaints of KAUFFMAN rest dyspnea or orthostasis to
warrant immediate transfusion
Patient History
History of Present Illness
88-year-old white male with locally advanced prostate adenocarcinoma on adjuvant ADT plus abiraterone/prednisone admitted to the hospital with progressive renal failure despite bilateral PCN tubes for obstructive disease at diagnosis in July 2021
With PSA levels less than 0.06 01/13/2024. He was evaluated in the emergency room 01/25/2024 for complaints of abdominal pain with loss of appetite as well as chills chest pain cough and KAUFFMAN. Laboratory studies on admission noted marked increase of
creatinine to 7.5 ( baseline 4.2) with mild hyponatremia and hypokalemia. CT scan imaging 01/26/2024 noted several distal left ureteral calculi with mild left hydronephrosis new from prior studies as well as 2 mm distal right ureteral calculi
without hydroureteronephrosis with otherwise grossly stable bibasilar pulmonary nodule suspicious for metastatic disease which had not been markedly PET avid in the past
Consultation is placed for evaluation and EPO replacement therapy given drop of baseline hemoglobin 10 to 7 g/dL
Past-Medical/Surgical History
BPH; hypertension;
Patient Medication
�Medication �Instructions �Recorded �Confirmed �Last Taken �Type
polyethylene glycol 3350 17 gram 17 grams PO BID PRN constipation 03/03/22 01/25/24 08/14/22 History
oral powder packet
sodium bicarbonate 650 mg tablet 1,300 mg PO BID Kidney Disease 03/03/22 01/25/24 01/25/24 History
abiraterone 250 mg tablet 1,000 mg PO DAILY Cancer 07/14/22 01/25/24 01/25/24 History
prednisone 5 mg tablet 5 mg PO DAILY Autoimmune Disorder 07/14/22 01/25/24 01/25/24 History
calcium acetate 667 mg tablet 667 mg PO DAILY Kidney Disease 04/19/23 01/25/24 01/25/24 History
amlodipine 2.5 mg tablet 2.5 mg PO DAILY Blood Pressure 01/26/24 01/25/24 01/25/24 History
calcitriol 0.25 mcg capsule 0.25 mcg PO DAILY Supplement 01/26/24 01/25/24 01/25/24 History
Active Medications
Generic Name Dose Route Start Last Admin
Trade Name Freq PRN Reason Stop Dose Admin
Acetaminophen 650 mg 01/26/24 00:14
Acetaminophen 325 Mg Tablet PO 02/23/24 00:13
Q4HPRN PRN
mild pain/CARDONA/temp> 100.4F
Calcitriol 0.25 mcg 01/27/24 18:00 01/29/24 09:24
Calcitriol 0.25 Microgram Capsule PO 02/24/24 17:59 0.25 mcg
DAILY RAYMUNDO Administration
Calcium Acetate 667 mg 01/27/24 18:00 01/29/24 09:24
Calcium Acetate 667 Mg Tablet PO 02/24/24 17:59 667 mg
DAILY RAYMUNDO Administration
Heparin Sodium 5,000 units 01/26/24 08:00 01/29/24 20:10
Heparin 5,000 Units/Ml 1 Ml Vial SC 02/23/24 07:59 5,000 units
Q12 RAYMUNDO Administration
Abiraterone 1,000 Mg 0 mg 01/27/24 17:30 01/29/24 10:59
( 4 X 250 Mg PO 02/24/24 17:29 1,000 mg
Tablets)Po Daily DAILY RAYMUNDO Administration
Polyethylene Glycol 17 grams 01/27/24 17:20
Polyethylene Glycol Powder 17 Grams Packet PO 02/24/24 17:19
BID PRN
constipation
Prednisone 5 mg 01/27/24 18:00 01/29/24 09:24
Prednisone 5 Mg Tablet PO 02/24/24 17:59 5 mg
DAILY RAYMUNDO Administration
Simethicone 80 mg 01/27/24 09:38 01/27/24 09:49
Simethicone 80 Mg Chewable Tablet PO 02/24/24 09:37 80 mg
TIDPRN PRN Administration
bloating
Sodium Bicarbonate 650 mg 01/27/24 16:00 01/29/24 21:20
Sodium Bicarbonate 650 Mg Tablet PO 02/24/24 15:59 650 mg
TID RAYMUNDO Administration
Sodium Chloride 0 flush 01/26/24 09:00 01/27/24 18:37
Sodium Chloride 0.9% (Flush) Syringe IV 02/23/24 08:59 2 flush
PER PROTOCOL RAYMUNDO Administration
Review of Systems
-
History Source: Patient
All Other Systems: Reviewed and Negative
Physical Exam
-
General: Well Nourished and No Apparent Distress
HEENT: Moist Mucous Membranes
Cardiology: Normal Sinus Rhythm
Pulmonary: Clear
GI: Soft and Normal Bowel Sounds
Genito-Urinary: Other (Bilateral PCN left dominant with greater urine collection than right as is typical for him without evidence of clotting/bleeding)
Musculoskeletal: No Clubbing, No Cyanosis and No Edema
Neurology: Non Focal
Psych: Calm
Labs
Lab Results
WBC 8.5 10^3/uL (4.8-10.8) 01/30/24 06:27
RBC 2.40 10^6/uL (4.70-6.10) L 01/30/24 06:27
Hgb 7.5 g/dL (13.0-18.0) L 01/30/24 06:27
Hct 23.3 % (39.0-52.0) L 01/30/24 06:27
MCV 97.1 fL (80.0-94.0) H 01/30/24 06:27
MCH 31.3 pg (27.0-31.0) H 01/30/24 06:27
MCHC 32.2 g/dL (33.0-37.0) L 01/30/24 06:27
RDW 13.2 % (11.5-14.5) 01/30/24 06:27
Plt Count 287 10^3/uL (130-400) 01/30/24 06:27
MPV 10.1 fL (7.4-10.4) 01/30/24 06:27
Abs Immat Gran (auto) 0.2 10^3/uL (0-0.05) H 01/26/24 06:36
Absolute Neuts (auto) 7.3 10^3/uL (1.4-6.5) H 01/26/24 06:36
Absolute Lymphs (auto) 0.5 10^3/uL (1.2-3.4) L 01/26/24 06:36
Absolute Monos (auto) 0.8 10^3/uL (0.1-0.6) H 01/26/24 06:36
Absolute Eos (auto) 0.2 10^3/uL (0-0.7) 01/26/24 06:36
Absolute Basos (auto) 0.0 10^3/uL (0-0.2) 01/26/24 06:36
Immature Gran % 2.5 % (0-0.5) H 01/26/24 06:36
Neutrophils % 81.1 % (42.2-75.2) H 01/26/24 06:36
Lymphocytes % 5.1 % (20.5-51.1) L 01/26/24 06:36
Monocytes % 9.1 % (1.7-9.3) 01/26/24 06:36
Eosinophils % 2.0 % (0-6) 01/26/24 06:36
Basophils % 0.2 % (0-2) 01/26/24 06:36
Creatinine 4.8 mg/dL (0.7-1.3) H* 01/30/24 06:27
Vital Signs
Vital Signs
Temp Pulse Resp BP Pulse Ox
97.9 F 77 18 142/78 97
01/30/24 07:00 01/30/24 07:00 01/30/24 07:00 01/30/24 07:00 01/30/24 07:00
[2024-01-30] MEDS: PHOSLO 667 MG PO (10:01)
[2024-01-30] MEDS: ROCALTROL 0.25 MCG PO (10:01)
[2024-01-30] MEDS: DELTASONE 5 MG PO (10:01)
[2024-01-30] MEDS: SODIUM BICARBONATE 650 MG PO ×3 (10:01→21:45)
[2024-01-30] MEDS: NON-FORMULARY ITEM 1000 MG PO (10:02)
--- NOTE | 2024-01-30 10:37 | W.PN.GI.CBS2 ---
Today's Communication / Plan
-
Monitor H&H. Stop heme testing stool.
Assessment / Plan
-
78 y.o. 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
abdominal pain and diarrhea, which has since resolved. Currently being treated for his PARUL and metabolic acidosis, abdominal pain and diarrhea resolved, possibility 2/2 new medication (Abiraterone).
In regards to his anemia, I suspect it is multifactorial. There are no signs of GI bleeding. I do not feel urgent endoscopic intervention is necessary at this time, but certainly, can be discussed more in the outpatient setting. He has never had a
colonoscopy before. Prior EGD last year with Dr. Melton due to an acute food impaction, instructed to come in to the office following this procedure, but lost to follow-up in setting of his more urgent medical needs.
He states he was told he could NOT have a colonoscopy within 14 months of radiation therapy. He would like to avoid within this timeframe, unless there are signs of active bleeding. Recommend continue to trend H&H, monitor stool color and stop heme
testing every stool.
Hold off on EGD/Colonoscopy at this time, will follow.
Subjective
Subjective
Date of Service: January 30, 2024
GI was called back by primary team to reevaluate patient as stool overnight returned heme positive. Unclear why we are checking every stool he has, this is not an appropriate utilization. He still continues to be brown, no evidence of overt GI
bleeding. He does have a notable drop in hemoglobin since arrival however, seems to be trickling down rather than an acute drop overnight.
Hgb 9.5 --> 8.3 --> 7.6 --> 7.3 --> 7.9 --> 7.5
Objective
Data Reviewed
Laboratory Data:
Laboratory Results
01/30/24 06:27
01/30/24 06:27
Laboratory Results
Total Bilirubin 0.3 mg/dl (0.2-1.3) 01/26/24 06:36
AST 28 U/L (17-59) 01/26/24 06:36
ALT 13 U/L (0-50) 01/26/24 06:36
Alkaline Phosphatase 82 U/L (38-126) 01/26/24 06:36
Lipase 116 U/L (23-300) 01/25/24 20:29
Vital Signs and I&O:
Vital Signs
Temp Pulse Resp BP Pulse Ox
97.9 F 77 18 142/78 97
01/30/24 07:00 01/30/24 07:00 01/30/24 07:00 01/30/24 07:00 01/30/24 07:00
I&O
01/29/24 01/30/24 01/31/24
06:59 06:59 06:59
Intake Total 1440 / 1440 1920 / 1920
Output Total 2500 / 2500 3050 / 3050
Balance -1060 / -1060 -1130 / -1130
Physical Exam
Physical Exam
HEENT: Anicteric and Moist mucous membranes
Cardiology: Normal Sinus Rhythm
Pulmonary: Clear
GI: Soft, Non Distended, Non Tender and Other (urostomy tube noted b/l )
Extremities: No Edema
Neuro: Non Focal
--- NOTE | 2024-01-30 10:48 | W.PN.NEPH.PH ---
Today's Communication / Plan
-
follow bmp
Assessment/Plan
-
Assessment
Diarrhea, nausea, failure to thrive
PARUL
CKD4, baseline creatinine 4.2
Metabolic acidosis
Stage IV prostate cancer
Hypokalemia
Bilateral percutaneous nephrostomy
Bilateral nephrolithiasis
New mild left hydronephrosis
Plan
Creatinine down to 4.8 with nonoliguric via nephrostomy tube
Now with worsening anemia with hemoglobin down to 7.5 likely a function of anemia of chronic kidney disease
Hematology provided GUILLAUME this morning (8K)
Hemodynamically stable
Follow metabolic acidosis which has normalized om oral bicarbonate on at 650mg TID
No acute hemodialysis requirement
follow BMP
-
-
Date of Service: January 30, 2024
CC / HPI / ROS
-
Chief Complaint:
PARUL
History of Present Illness:
PARUL/Cr better at 4.8
K stable
Metabolic acidosis resolved with sodium bicarb
good output from bilateral PCN
Hemoglobin down to 7.5
Review of Systems:
no CP/SOB
Nonoliguric
Labs
-
Labs:
WBC 8.5 10^3/uL (4.8-10.8) 01/30/24 06:27
RBC 2.40 10^6/uL (4.70-6.10) L 01/30/24 06:27
Hgb 7.5 g/dL (13.0-18.0) L 01/30/24 06:27
Hct 23.3 % (39.0-52.0) L 01/30/24 06:27
Plt Count 287 10^3/uL (130-400) 01/30/24 06:27
Sodium 145 mmol/L (135-145) 01/30/24 06:27
Potassium 3.8 mmol/L (3.5-5.1) 01/30/24 06:27
Chloride 105 mmol/L (98-107) 01/30/24 06:27
Carbon Dioxide 25 mmol/L (22-30) 01/30/24 06:27
BUN 57 mg/dl (9-20) H 01/30/24 06:27
Creatinine 4.8 mg/dL (0.7-1.3) H* 01/30/24 06:27
eGFR 11.73 01/30/24 06:27
Glucose 110 mg/dl (70-99) H 01/30/24 06:27
Calcium 7.9 mg/dl (8.4-10.2) L 01/30/24 06:27
Albumin 2.7 g/dl (3.5-5.0) L 01/29/24 06:41
Physical Exam
-
Vital Signs:
Vital Signs
Temp Pulse Resp BP Pulse Ox
97.9 F 77 18 142/78 97
01/30/24 07:00 01/30/24 07:00 01/30/24 07:00 01/30/24 07:00 01/30/24 07:00
Cardiovascular:: Regular rate and rhythm
Respiratory:: Bilateral: Coarse
Lung Excursion:: Normal
Abdomen:: Nontender and Soft
Bowel Sounds:: Normal
Extremity Edema:: None: Bilateral:
Other Findings::
Bilateral PCNs
--- NOTE | 2024-01-30 10:55 | W.PN.HOSP.TC ---
Today's Communication/Plan
-
GUILLAUME today for worsened anemia
Monitor Hgb for improvement or stability of anemia -- if stable going into tomorrow, can discharge
Assessment / Plan
Assessment / Plan
Physical Exam
General: Not in acute distress
HEENT: Normocephalic, Moist mucous membranes
Respiratory: Clear to Auscultation Bilaterally
Cardiac: S1/S2 and Regular Rhythm
GI: Soft, Non Distended, Normal Bowel Sounds and Nontender
Musculoskeletal: No Cyanosis and No Edema
Skin: Warm. Dry.
Neuro: Nonfocal/grossly intact
Chest X-Ray (as per radiologist's report)
'IMPRESSION:
Mild left basilar probable atelectasis.'
CT Abdomen/Pelvis (as per radiologist's report)
'IMPRESSION:
Several distal left ureteral calculi are present measuring up to 7 mm with associated mild left hydronephrosis, new from prior.
2 mm distal right ureteral calculus without significant right-sided hydroureteronephrosis.
Grossly stable bibasilar pulmonary nodules suspicious for metastatic disease......
......There is no CT evidence for enterocolitis. There are moderate diffuse atherosclerotic calcifications, similar to prior.'
Assessment/Plan
78-year-old male with history of chronic bilateral nephrostomy tubes, here for multiple symptoms including abdominal pain, diarrhea, chest pain, cough and PARUL on CKD. IV fluids, cefepime.
# Concern for nephrostomy tube associated UTI
# Bilateral Percutaneous Nephrostomy Tubes
# Mild bilateral perinephric stranding? Mild bladder wall thickening?
# History of chronic urinary retention/ureteral obstruction/post bilateral nephrostomy tubes
# Moderate left and severe right renal scarring
-Urinalysis positive
-CT abdomen pelvis pending to evaluate for pyelonephritis/nephrostomy tube obstruction
-Urine culture with greater than 100k mixed debbie, probably contamination
-IV fluids
-Cefepime switched to Ceftriaxone based on prior cultures -- but consulted ID and no antibiotics needed at this time, appreciate ID
-Nephrostomy tube sutures are not intact -- consulted Interventional Radiology, appreciate their evaluation and recommendations
-Per urology, no indication for urologic intervention at this time
-Plan for outpt f/u with dr bhardwaj on feb 08 for lupron and discussion of stones
#Worsening Normocytic Anemia
#Heme-Positive stools overnight 01/29/24 to 01/30/24
-Since admission Hgb has dropped by ~2 points
-Suspected at least in part due to anemia of chronic kidney disease
-Iron studies are okay
-Consideration for EPO: discussed with nephrology and consulted hematology: GUILLAUME being ordered today
-Transfuse PRBC to maintain Hgb>7.
-GI consulted regarding heme positive stool with anemia: patient stated he was told he could NOT have a colonoscopy within 14 months of radiation therapy. He would like to avoid within this timeframe, unless there are signs of active bleeding.
-GI recommended continuing to trend H&H, monitor stool color and stop heme testing every stool.
-Hold off on EGD/Colonoscopy at this time, GI will follow.
#Abdominal Pain
#Diarrhea - IMPROVING
-C. diff negative
-Consulted GI, appreciate their evaluation and recommendations
-Continue dairy-free, low-fat, low-residue/low-fiber diet
-Simethicone PRN for gas/bloating
-Follow stool studies
#Moderate to severe aortic calcification?
#Prostate brachytherapy pellets?
# PARUL on CKD 4
-Follows with Dr. Burciaga outpatient
-Baseline creatinine is 3.9
-Status post IV fluids with bicarb
-Creatinine of 7.5 from 4.9 previously. Today 5.1
-CT abdomen pelvis noted
-Continue sodium bicarbonate if needed, as per nephrology
-Nephrology consulted
#Hypokalemia - RESOLVED
-Potassium replaced again
-Recheck BMP
# Acute cough/chest pain
-Chest x-ray shows mild left basilar atelectasis
-Mucinex
# Loose stool/diarrhea
-Continue to monitor
-Stool studies and C. difficile negative so far
-Consulted GI, appreciate evaluation and recommendations
#Essential hypertension
#Stage IV prostate cancer on abiraterone therapy
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
#Status post TURP
Code Status: Full code
DVT prophylaxis: Heparin subq. SCDs.
Regular diet
Anticipated Discharge: Within 24 hours
Subjective/Interval History
-
Date of Service: January 30, 2024
Patient was seen and examined. He denied any complaints, and mentioned he did not see any blood in his bowel movements from earlier.
Objective Data
-
Labs:
Laboratory Results
01/30/24
06:27
WBC 8.5
Hgb 7.5 L
Hct 23.3 L
Plt Count 287
Sodium 145
Potassium 3.8
Chloride 105
Carbon Dioxide 25
BUN 57 H
Creatinine 4.8 H*
Glucose 110 H
Calcium 7.9 L
Vital Signs:
Vital Signs
Temp Pulse Resp BP Pulse Ox
97.9 F 77 18 142/78 97
01/30/24 07:00 01/30/24 07:00 01/30/24 07:00 01/30/24 07:00 01/30/24 07:00
I&O
01/29/24 01/30/24 01/31/24
06:59 06:59 06:59
Intake Total 1440 / 1440 1920 / 1920
Output Total 2500 / 2500 3050 / 3050
Balance -1060 / -1060 -1130 / -1130
[2024-01-30] MEDS: RETACRIT 8000 UNITS SC (12:40)
[2024-01-30] MEDS: HEPARIN 5000 UNITS SC ×2 (12:41→19:29)
--- NOTE | 2024-01-30 14:20 | W.PN.UPDATE ---
Update Note
Progress Note Update
Earlier today, I spoke (via [place] [employer]) with Dr. Fair (nephrology), Dr. Jeronimo (hematology), Dr. Palmer (urology), and Dr. Brewer (gastroenterology), and they all agreed that it is okay to discharge the patient from the hospital today.
[2024-01-30 15:00] VITALS: BP 139/71
--- NOTE | 2024-01-30 15:09 | CM ---
Addendum entered by Katherine Beach 01/30/24 15:31:
Discharge cancelled
Original Note:
CM met with pt bedside as dc order noted
Pt noted he was confused as he was told he would not be clearing to dc today
He also noted concerns regarding hgb he would like to address with attending
Dispo planning discussed- no dc needs noted
IMM verbally reviewed- copy provided
TT/Dr Lam re: pt concerns
Discharge Disposition- home, no needs, family transport
[2024-01-30] MEDS: KCL 20 MEQ PO (15:15)
--- NOTE | 2024-01-30 15:27 | W.PN.UPDATE ---
Update Note
Progress Note Update
I just spoke to patient just now, and he is concerned about his hemoglobin and anemia; he requested to stay overnight to see what his hemoglobin is in the morning. Cancelled discharge order.
[2024-01-30] MEDS: MYLICON 80 MG PO (21:45)
[2024-01-30 23:16] VITALS: BP 130/52
[2024-01-31 07:00] VITALS: BP 147/79
[2024-01-31 08:41] LABS: Hematocrit 25.8 % (39.0-52.0); Hemoglobin 8.1 g/dL (13.0-18.0); Mean Corp Hgb Conc. 31.4 g/dL (33.0-37.0); Mean Corpuscular Hgb 31.2 pg (27.0-31.0); Mean Corpuscular Volume 99.2 fL (80.0-94.0); Mean Platelet Volume 9.9 fL (7.4-10.4); Platelet Count 297 10^3/uL (130-400); Red Cell Dist. Width 13.1 % (11.5-14.5); White Blood Cell Count 8.9 10^3/uL (4.8-10.8)
[2024-01-31 09:05] LABS: Blood Urea Nitrogen 51 mg/dl (9-20); Calcium 8.3 mg/dl (8.4-10.2); Carbon Dioxide 23 mmol/L (22-30); Chloride 105 mmol/L (98-107); Estimated Creatinine Clearance 13 ml/min; Glucose 128 mg/dl (70-99); Magnesium 1.7 mg/dl (1.6-2.3); Potassium 3.8 mmol/L (3.5-5.1); Sodium 144 mmol/L (135-145); eGFR 12.03
--- NOTE | 2024-01-31 09:27 | W.PN.HOSP.TC ---
Today's Communication/Plan
-
Discharge
Assessment / Plan
Assessment / Plan
Physical Exam
General: Not in acute distress
HEENT: Normocephalic, Moist mucous membranes
Respiratory: Clear to Auscultation Bilaterally
Cardiac: S1/S2 and Regular Rhythm
GI: Soft, Non Distended, Normal Bowel Sounds and Nontender
Musculoskeletal: No Cyanosis and No Edema
Skin: Warm. Dry.
Neuro: Nonfocal/grossly intact
Psych: ina, no agitation
Assessment/Plan
78-year-old male with history of chronic bilateral nephrostomy tubes, here for multiple symptoms including abdominal pain, diarrhea, chest pain, cough and PARUL on CKD. IV fluids, cefepime.
# Concern for nephrostomy tube associated UTI
# Bilateral Percutaneous Nephrostomy Tubes
# Mild bilateral perinephric stranding? Mild bladder wall thickening?
# History of chronic urinary retention/ureteral obstruction/post bilateral nephrostomy tubes
# Moderate left and severe right renal scarring
-Urinalysis positive
-CT abdomen pelvis pending to evaluate for pyelonephritis/nephrostomy tube obstruction
-Urine culture with greater than 100k mixed debbie, probably contamination
-s/p IV fluids
-Cefepime switched to Ceftriaxone based on prior cultures -- but consulted ID and no antibiotics needed at this time, appreciate ID
-Nephrostomy tube sutures are not intact -- consulted Interventional Radiology, appreciate their evaluation and recommendations
-Per urology, no indication for urologic intervention at this time
-Plan for outpt f/u with dr bhardwaj on feb 08 for lupron and discussion of stones
#Worsening Normocytic Anemia/ worsening anemia with hemoglobin down to 7.5 likely a function of anemia of chronic kidney disease
#Heme-Positive stools overnight 01/29/24 to 01/30/24
-Iron studies are okay
-Consideration for EPO: discussed with nephrology and consulted hematology: GUILLAUME being ordered today
-Transfuse PRBC to maintain Hgb>7.
-GI consulted regarding heme positive stool with anemia: patient stated he was told he could NOT have a colonoscopy within 14 months of radiation therapy. He would like to avoid within this timeframe, unless there are signs of active bleeding.
-GI recommended: -Hold off on EGD/Colonoscopy.
#Abdominal Pain
#Diarrhea - IMPROVING
-C. diff negative
-Consulted GI, appreciate their evaluation and recommendations
-Continue dairy-free, low-fat, low-residue/low-fiber diet
-Simethicone PRN for gas/bloating
#Moderate to severe aortic calcification?
#Prostate brachytherapy pellets?
# PARUL on CKD 5
-Follows with Dr. Burciaga outpatient
-Baseline creatinine is 3.9
-Status post IV fluids with bicarb
-Creatinine of 7.5 from 4.9 previously. Today 8.1
-CT abdomen pelvis noted
-Continue sodium bicarbonate if needed, as per nephrology
-Nephrology consulted
#Hypokalemia - RESOLVED
-Potassium replaced again
-Recheck BMP
# Acute cough/chest pain
-Chest x-ray shows mild left basilar atelectasis
-Mucinex
# Loose stool/diarrhea
-Continue to monitor
-Stool studies and C. difficile negative so far
-Consulted GI, appreciate evaluation and recommendations
#Essential hypertension
#Stage IV prostate cancer on abiraterone therapy
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
#Status post TURP
Code Status: Full code
DVT prophylaxis: Heparin subq. SCDs.
Regular diet
Total discharge time spent to see the patient on the floor, examine the patient, review data and lab results, discuss discharge plan with patient, nursing staff around 65 minutes
Anticipated Discharge: Today
Subjective/Interval History
-
Date of Service: January 31, 2024
No chest pain
No sob
No abdominal pain
Objective Data
-
Labs:
Laboratory Results
01/31/24
07:54
WBC 8.9
Hgb 8.1 L
Hct 25.8 L
Plt Count 297
Sodium 144
Potassium 3.8
Chloride 105
Carbon Dioxide 23
BUN 51 H
Creatinine 4.7 H*
Glucose 128 H
Calcium 8.3 L
Vital Signs:
Vital Signs
Temp Pulse Resp BP Pulse Ox
97.5 F 63 18 147/79 97
01/31/24 07:00 01/31/24 07:00 01/31/24 07:00 01/31/24 07:00 01/31/24 07:00
I&O
01/30/24 01/31/24 02/01/24
06:59 06:59 06:59
Intake Total 1919 / 0 2160 / 2160
Output Total 0 / 3050 3960 / 3960
Balance -1130 / -1130 -1800 / -1800
[2024-01-31 09:43] LABS: Absolute Neutrophils -Man Diff 6.4 10^3/uL (1.4-6.5); Band Neutrophils 7 % (0-3); Eosinophils 2 % (0-6); Lymphocytes 12 % (20-51); Metamyelocytes 4 % (-); Monocytes 6 % (2-9); Myelocytes 3 % (-); Normal RBC Morphology Yes; Platelets Checked Yes; Segmented Neutrophils 66 % (42-75); Total Cells Counted 100
[2024-01-31] MEDS: NON-FORMULARY ITEM 1000 MG PO (09:47)
[2024-01-31] MEDS: SODIUM BICARBONATE 650 MG PO (09:48)
[2024-01-31] MEDS: PHOSLO 667 MG PO (09:48)
[2024-01-31] MEDS: DELTASONE PO (09:48)
[2024-01-31] MEDS: ROCALTROL 0.25 MCG PO (09:48)
[2024-01-31] MEDS: HEPARIN 5000 UNITS SC (09:49)
--- NOTE | 2024-01-31 10:55 | CM ---
CM reviewed chart, patient seen bedside, for discharge today. Offered VN, patient declining, reports no needs to CM at this time. Patient reports will provide transportation home. CM will continue to follow for all discharge planning needs.
Plan; home with , declining VN.
--- NOTE | 2024-01-31 10:56 | W.PN.NEPH.PH ---
Today's Communication / Plan
-
dc
Assessment/Plan
-
Assessment
Diarrhea, nausea, failure to thrive
PARUL
CKD4, baseline creatinine 4.2
Metabolic acidosis
Stage IV prostate cancer
Hypokalemia
Bilateral percutaneous nephrostomy
Bilateral nephrolithiasis
New mild left hydronephrosis
Plan
for dc
has OP visit with Dr. Burciaga tomorrow
future labs to be decided then
he knows to f/u with oncology for GUILLAUME schedule
-
-
Date of Service: January 31, 2024
CC / HPI / ROS
-
Chief Complaint:
PARUL
History of Present Illness:
PARUL/Cr better at 4.7
K stable 3.8
Metabolic acidosis resolved with sodium bicarb
good output from bilateral PCN
Hemoglobin stable 8.1
Review of Systems:
no CP/SOB
Nonoliguric
Labs
-
Labs:
WBC 8.9 10^3/uL (4.8-10.8) 01/31/24 07:54
RBC 2.60 10^6/uL (4.70-6.10) L 01/31/24 07:54
Hgb 8.1 g/dL (13.0-18.0) L 01/31/24 07:54
Hct 25.8 % (39.0-52.0) L 01/31/24 07:54
Plt Count 297 10^3/uL (130-400) 01/31/24 07:54
Sodium 144 mmol/L (135-145) 01/31/24 07:54
Potassium 3.8 mmol/L (3.5-5.1) 01/31/24 07:54
Chloride 105 mmol/L (98-107) 01/31/24 07:54
Carbon Dioxide 23 mmol/L (22-30) 01/31/24 07:54
BUN 51 mg/dl (9-20) H 01/31/24 07:54
Creatinine 4.7 mg/dL (0.7-1.3) H* 01/31/24 07:54
eGFR 12.03 01/31/24 07:54
Glucose 128 mg/dl (70-99) H 01/31/24 07:54
Calcium 8.3 mg/dl (8.4-10.2) L 01/31/24 07:54
Albumin 2.7 g/dl (3.5-5.0) L 01/29/24 06:41
Physical Exam
-
Vital Signs:
Vital Signs
Temp Pulse Resp BP Pulse Ox
97.5 F 63 18 147/79 97
01/31/24 07:00 01/31/24 07:00 01/31/24 07:00 01/31/24 07:00 01/31/24 07:00
Cardiovascular:: Regular rate and rhythm
Respiratory:: Bilateral: Coarse
Lung Excursion:: Normal
Abdomen:: Nontender and Soft
Bowel Sounds:: Normal
Extremity Edema:: None: Bilateral:
--- NOTE | 2024-01-31 11:22 | W.PN.ONC ---
Today's Communication / Plan
-
Probable discharge. I advised him to make an appointment with our office next week for continuation of Red cell growth factor.
Impression
Impression
Anemia of chronic kidney disease progressive stage IV
Plan
Plan
adequate iron stores with progressing renal failure-- EPO ordered; Discussed with nephrology as this may be a temporary manifestation pending recovery of renal function to baseline; currently without complaints of KAUFFMAN rest dyspnea or orthostasis to
warrant immediate transfusion
Subjective/Objective
Subjective/Objective
He is feeling reasonably well. He offers no new symptoms. Examination is unchanged.
Vital Signs:
Vital Signs
Temp Pulse Resp BP Pulse Ox
97.5 F 63 18 147/79 97
01/31/24 07:00 01/31/24 07:00 01/31/24 07:00 01/31/24 07:00 01/31/24 07:00
Lab Results:
Laboratory Data
WBC 8.9 10^3/uL (4.8-10.8) 01/31/24 07:54
Hgb 8.1 g/dL (13.0-18.0) L 01/31/24 07:54
Plt Count 297 10^3/uL (130-400) 01/31/24 07:54
eGFR 12.03 01/31/24 07:54
--- NOTE | 2024-01-31 11:26 | W.DCSUMMARY ---
Discharge Summary
Discharge Data
Date of Admission: 01/25/24
Date of Discharge: 01/31/24
-
Pending Results: No
Hospital Course
88 years old male with locally advanced prostate adenocarcinoma on adjuvant ADT plus abiraterone/prednisone admitted to the hospital with progressive renal failure despite bilateral PCN tubes for obstructive disease at diagnosis in July 2021 With PSA
levels less than 0.06 01/13/2024. He complained of abdominal pain, diarrhea, loss of appetite, chills, chest pain cough and exertional dyspnea. Laboratory studies on admission noted marked increase of creatinine to 7.5 ( baseline 4.2) with mild
hyponatremia and hypokalemia. HGB around average 7-8. CT scan imaging 01/26/2024 noted several distal left ureteral calculi with mild left hydronephrosis new from prior studies as well as 2 mm distal right ureteral calculi without
hydroureteronephrosis with otherwise grossly stable bibasilar pulmonary nodule suspicious for metastatic disease which had not been markedly PET avid in the past. Patient was evaluated by urology. No indication for urologic intervention recommended
per urology. He was also evaluated by wood grainer. Patient was found to have acute kidney injury on chronic kidney disease progressing to stage V. Patient had heme positive stool. Iron study were consistent with anemia of chronic disease.
Patient was evaluated by gastroenterology doctor who recommended to hold off on endoscopic evaluation due to recent radiation therapy. Patient did not have signs of active bleeding. Therapeutic Recreation Specialist evaluated the patient. Patient was given Red cell
growth factor infusion. Patient tolerated diet. Diarrhea resolved. C. difficile test was negative. Patient initially was giving empiric antibiotic but infectious disease consulted recommended to hold off on further antibiotic. Patient started
to feel better with improvement of his symptoms. He remained hemodynamically stable and was discharged home in a stable condition. Hemoglobin upon discharge was 8.1.
Discharge Plan
-
Patient Disposition: Home (Routine Discharge)
Discharge Diagnosis/Procedures: # Pulmonary Nodules -- need follow-up with pulmonary physician
# Worsening Normocytic Anemia
# Heme-Positive stools overnight 01/29/24 to 01/30/24
# Metabolic Acidosis
# Concern for nephrostomy tube associated UTI
# Bilateral Percutaneous Nephrostomy Tubes
# PARUL on CKD 4
# Concern for mild bilateral perinephric stranding and mild bladder wall thickening?
# History of chronic urinary retention/ureteral obstruction/post bilateral nephrostomy tubes
# Moderate left and severe right renal scarring
# Abdominal Pain
# Diarrhea - IMPROVING
# Moderate to severe aortic calcification
# Prostate brachytherapy pellets?
# Hypokalemia - RESOLVED
# Acute cough/chest pain
# Loose stool/diarrhea
# Essential hypertension
# Stage IV prostate cancer on abiraterone therapy
# Purple bag syndrome on the right side
# Status post TURP
CT Abdomen/Pelvis (as per radiologist's report)
'IMPRESSION:
Several distal left ureteral calculi are present measuring up to 7 mm with associated mild left hydronephrosis, new from prior.
2 mm distal right ureteral calculus without significant right-sided hydroureteronephrosis.
Grossly stable bibasilar pulmonary nodules suspicious for metastatic disease......
......There is no CT evidence for enterocolitis. There are moderate diffuse atherosclerotic calcifications, similar to prior.'
Chest X-Ray (as per radiologist's report)
'IMPRESSION:
Mild left basilar probable atelectasis.'
Condition: Good
Diet: Other diet
Additional Diets: Low Lactose Diet
Activity: As tolerated
Blood Work: Check CBC (with differential), CMP and Magnesium with your primary care provider's office by February 01, 2024 at the latest (preferably by January 31, 2024 if possible)
Activity Restrictions/Additional Instructions:
You had worsening anemia during your hospitalization, and you will need to contact your primary care provider as early as possible this upcoming week for close follow-up of your hemoglobin.
Call hematology (Dr. Loera) office tomorrow for consideration of additional Retacrit injections for your anemia and to follow-up pulmonary nodules on hospital imaging.
Follow a dairy-free, low-fat, low-residue/low-fiber diet to help with diarrhea.
Call Dr. Fari's (wood grainer's) office to find out how long you should be on the sodium bicarbonate.
Call Dr. Castellanos's office if new problems other mccall keep already scheduled January 2024 appointment to discuss prostate cancer and ureteral stone
Referrals:
Chapin Fair DO [Active] - in less than 1 week (Hospital Follow-Up)
Rom Castellanos MD [Active] -
Iftikhar Min III, MD [Active] - in three to four weeks (Aortic atherosclerotic calcifications on hospital imaging (also put in referral with cardiothoracic surgery on discharge))
Doni Simons DO [Family Provider] -
Rika Loera DO [Active] - in one to two days (Hospital Follow-Up -- may need more Retacrit to be given -- hematology ordered Retacrit in the hospital. Also suspected mets in lungs on hospital imaging.)
Dereck Hamilton MD [Active] - in one to two weeks (Hospital Follow-Up of Pulmonary Nodules)
Negro Oscar MD [Active] - in three to four weeks (Aortic atherosclerotic calcifications on hospital imaging)
Essence Melton DO [Active] - in three to four weeks (Hospital Follow-Up)
Additional Discharge Medication Instructions: Sodium bicarbonate has been changed from 1,300 mg BID to 650 mg TID
Prescriptions:
New
sodium bicarbonate 650 mg Tablet
650 mg PO TID Qty: 60 0RF
Continued
polyethylene glycol 3350 17 GRAMS powder in packet
17 grams PO BID PRN (Reason: constipation)
prednisone 5 mg Tablet
5 mg PO DAILY
abiraterone 250 mg Tablet
1,000 mg PO DAILY
calcium acetate 667 MG tablet
667 mg PO DAILY
amlodipine 2.5 MG tablet
2.5 mg PO DAILY
calcitriol 0.25 MCG capsule
0.25 mcg PO DAILY
Discontinued
sodium bicarbonate 650 mg Tablet
1,300 mg PO BID
Discharge Orders:
Discharge Patient (As Directed); Ordered 01/31/24
Ordered By: Yudy Monteiro
Discharge Date and Time
Print Language: DOMINICAN
--- NOTE | 2024-01-31 12:30 | PN.CDI ---
Addendum entered and electronically signed by Yudy Monteiro MD 01/31/24 12:50:
PARUL on CKD 5
Original Note:
CDI
- -
CDI:
Physician Documentation Request
Admit Date: 01/25/24 22:53
Dear Doctor Cayetano,
Patient admitted for UTI.
01/29 Nephrology PN: 'PARUL CKD4, baseline creatinine 4.2'
01/30 Hospitalist PN: 'PARUL on CKD 5
-Follows with Dr. Burciaga outpatient
-Baseline creatinine is 3.9'
Laboratory Tests
01/29/24 01/30/24 01/31/24
20:53 06:27 07:54
eGFR 11.73 11.73 12.03
01/25/24 01/28/24 01/31/24
20:29 06:51 07:54
Creatinine 7.5 H* 5.3 H* 4.7 H*
Clarify which of the following accurately represents the patient's renal status:
PARUL on CKD 4
PARUL on CKD 5
Other
Criteria for PARUL*
1 Increase in serum creatinine by > or = to 0.3 mg/dL (> or = to 26.5 micromol/L) within 48 hours, OR
2 Increase in serum creatinine to > or = to 1.5 times baseline, which is known or presumed to have occurred within 7 days, OR
3 Urine volume < 0.5 nL/kg/hour for six hours
Stages of Chronic Kidney Disease*
Level Description GFR
G1 Normal or High >90
G2 Mildly decreased 60-89
G3a Mildly to moderately decreased 45-59
G3b Moderately to severely decreased 30-44
G4 Severely decreased 15-29
G5 Kidney failure <15
Use of terms such as suspected, likely, concern for, or probable (associated with a specific diagnosis that is being evaluated, monitored, or treated as if it exists) are acceptable and can be coded in the inpatient setting, when documented at the
time of discharge.
Thank you,
Mica Son RN, BSN
CDI Specialist
Available via [place] text
Please use your independent medical judgment in providing your response.
*Source: Kidney Disease: Improving Global Outcomes (KDIGO) 2012
[2024-01-31] MEDS: DELTASONE 5 MG PO (12:58)
[2024-01-31 13:46] VITALS: BP 112/73
== END 2024-01-31 14:47 | disposition home or self-care (01) | DRG 699 ==
LOC: 4 WEST ACU 22:53
PROVIDERS: Clinical Nurse Specialist Family Health; Hospitalist; Nurse Practitioner Family; Specialist; Student in an Organized Health Care Education/Training Program; ADMITTING PHYSICIAN Hospitalist; ATTENDING PHYSICIAN Internal Medicine; CONSULT PHYSICIAN Internal Medicine Hematology & Oncology; CONSULT PHYSICIAN Student in an Organized Health Care Education/Training Program; EMERGENCY PHYSICIAN Emergency Medicine; FAMILY PHYSICIAN Family Medicine; OTHER PHYSICIAN Specialist
DX: T83.512A Infection and inflammatory reaction due to nephrostomy catheter, initial encounter (principal); C78.00 Secondary malignant neoplasm of unspecified lung; I12.0 Hypertensive chronic kidney disease with stage 5 chronic kidney disease or end stage renal disease; N18.5 Chronic kidney disease, stage 5; N13.8 Other obstructive and reflux uropathy; E87.20 Acidosis, unspecified; C79.51 Secondary malignant neoplasm of bone; N13.6 Pyonephrosis; N17.9 Acute kidney failure, unspecified; E87.1 Hypo-osmolality and hyponatremia; J98.11 Atelectasis; K52.1 Toxic gastroenteritis and colitis; E78.00 Pure hypercholesterolemia, unspecified; R33.8 Other retention of urine; E87.6 Hypokalemia; C61 Malignant neoplasm of prostate; D63.1 Anemia in chronic kidney disease; T45.1X5A Adverse effect of antineoplastic and immunosuppressive drugs, initial encounter; R62.7 Adult failure to thrive; Y83.3 Surgical operation with formation of external stoma as the cause of abnormal reaction of the patient, or of later complication, without mention of misadventure at the time of the procedure; Z11.52 Encounter for screening for COVID-19; Z79.899 Other long term (current) drug therapy; Z87.891 Personal history of nicotine dependence
CPT/HCPCS: 71046; 74176; 80048; 80053; 81003; 81015; 82040; 82570; 82607; 82728; 83540; 83550; 83605; 83690; 83735; 84300; 84484; 85025; 85027; 87045; 87046; 87077; 87086; 87324; 87328; 87329; 87427; 87449; 87502; 87811; 93005; 93970; 96361; 96374; 99285; Q5106

== ENCOUNTER → 2024-02-04 10:31 | Outpatient (REF) | payer MEDICARE, SELFPAY ==
[2024-02-04 11:19] LABS: % Basophils 0.4 % (0-2); % Eosinophils 1.6 % (0-6); % Lymphocytes 9.5 % (20.5-51.1); % Monocytes 10.1 % (1.7-9.3); % Neutrophils 73.4 % (42.2-75.2); Absolute Eosinophils 0.2 10^3/uL (0-0.7); Absolute Immature Granulocytes 0.5 10^3/uL (0-0.05); Absolute Lymphocytes 0.9 10^3/uL (1.2-3.4); Absolute Monocytes 0.9 10^3/uL (0.1-0.6); Absolute Neutrophils 6.8 10^3/uL (1.4-6.5); Hematocrit 27.7 % (39.0-52.0); Hemoglobin 9.1 g/dL (13.0-18.0); Mean Corp Hgb Conc. 32.9 g/dL (33.0-37.0); Mean Corpuscular Volume 97.5 fL (80.0-94.0); Nucleated Red Blood Cells % 0 % (-); Platelet Count 331 10^3/uL (130-400); Red Blood Cell Count 2.84 10^6/uL (4.70-6.10); Red Cell Dist. Width 13.6 % (11.5-14.5); White Blood Cell Count 9.2 10^3/uL (4.8-10.8)
== END ==
LOC: REG 10:31
PROVIDERS: ATTENDING PHYSICIAN Nurse Practitioner Adult Health
DX: R91.8 Other nonspecific abnormal finding of lung field (principal); C61 Malignant neoplasm of prostate; N18.9 Chronic kidney disease, unspecified; N18.4 Chronic kidney disease, stage 4 (severe)
CPT/HCPCS: 36415; 85025

== ENCOUNTER → 2024-02-07 09:08 | Outpatient (REF) | payer MEDICARE, SELFPAY ==
[2024-02-07 11:55] LABS: Blood Urea Nitrogen 44 mg/dl (9-20); Calcium 9.6 mg/dl (8.4-10.2); Carbon Dioxide 19 mmol/L (22-30); Chloride 104 mmol/L (98-107); Glucose 181 mg/dl (70-99); Phosphorus 5.1 mg/dl (2.5-4.5); Potassium 4.8 mmol/L (3.5-5.1); Sodium 142 mmol/L (135-145); eGFR 10.65
[2024-02-08 09:52] LABS: Intact PTH 43.9 pg/ml (13.6-85.8)
== END ==
LOC: REG 09:08
PROVIDERS: ATTENDING PHYSICIAN Internal Medicine; FAMILY PHYSICIAN Family Medicine
DX: N18.5 Chronic kidney disease, stage 5 (principal)
CPT/HCPCS: 36415; 80069; 83970

== ENCOUNTER → 2024-02-18 07:58 | Outpatient (REF) | payer MEDICARE, SELFPAY ==
[2024-02-18 09:42] LABS: Albumin 4.2 g/dl (3.5-5.0); Blood Urea Nitrogen 47 mg/dl (9-20); Calcium 9.5 mg/dl (8.4-10.2); Carbon Dioxide 25 mmol/L (22-30); Chloride 104 mmol/L (98-107); Glucose 145 mg/dl (70-99); Phosphorus 5.3 mg/dl (2.5-4.5); Potassium 4.2 mmol/L (3.5-5.1); Sodium 143 mmol/L (135-145); eGFR 10.65
== END ==
LOC: REG 07:58
PROVIDERS: ATTENDING PHYSICIAN Internal Medicine
DX: I10 Essential (primary) hypertension (principal); D63.1 Anemia in chronic kidney disease; N17.9 Acute kidney failure, unspecified; N18.5 Chronic kidney disease, stage 5
CPT/HCPCS: 36415; 80069

== ENCOUNTER → 2024-02-21 07:07 | Outpatient (REF) | payer MEDICARE, SELFPAY ==
[2024-02-21 08:07] LABS: % Basophils 0.4 % (0-2); % Eosinophils 3.9 % (0-6); % Immature Granulocytes 0.9 % (0-0.5); % Lymphocytes 15.3 % (20.5-51.1); % Monocytes 9.7 % (1.7-9.3); % Neutrophils 69.8 % (42.2-75.2); Absolute Eosinophils 0.2 10^3/uL (0-0.7); Absolute Immature Granulocytes 0.1 10^3/uL (0-0.05); Absolute Lymphocytes 0.9 10^3/uL (1.2-3.4); Absolute Monocytes 0.6 10^3/uL (0.1-0.6); Hematocrit 31.5 % (39.0-52.0); Hemoglobin 9.8 g/dL (13.0-18.0); Mean Corp Hgb Conc. 31.1 g/dL (33.0-37.0); Mean Corpuscular Hgb 31.6 pg (27.0-31.0); Mean Corpuscular Volume 101.6 fL (80.0-94.0); Mean Platelet Volume 9.5 fL (7.4-10.4); Nucleated Red Blood Cells % 0 % (-); Platelet Count 224 10^3/uL (130-400); Red Cell Dist. Width 16.5 % (11.5-14.5); White Blood Cell Count 5.7 10^3/uL (4.8-10.8)
== END ==
LOC: REG 07:07
PROVIDERS: ATTENDING PHYSICIAN Internal Medicine Hematology & Oncology; FAMILY PHYSICIAN Family Medicine
DX: R91.8 Other nonspecific abnormal finding of lung field (principal); C61 Malignant neoplasm of prostate; N18.9 Chronic kidney disease, unspecified; N18.4 Chronic kidney disease, stage 4 (severe)
CPT/HCPCS: 36415; 85025

== ENCOUNTER → 2024-03-03 08:13 | Outpatient (REF) | payer MEDICARE, SELFPAY ==
[2024-03-03 09:21] LABS: % Basophils 0.4 % (0-2); % Immature Granulocytes 0.7 % (0-0.5); % Lymphocytes 12.6 % (20.5-51.1); % Monocytes 6.7 % (1.7-9.3); % Neutrophils 79.6 % (42.2-75.2); Absolute Lymphocytes 0.7 10^3/uL (1.2-3.4); Absolute Monocytes 0.4 10^3/uL (0.1-0.6); Absolute Neutrophils 4.5 10^3/uL (1.4-6.5); Hematocrit 36.8 % (39.0-52.0); Hemoglobin 11.3 g/dL (13.0-18.0); Mean Corp Hgb Conc. 30.7 g/dL (33.0-37.0); Mean Corpuscular Hgb 31.4 pg (27.0-31.0); Mean Corpuscular Volume 102.2 fL (80.0-94.0); Mean Platelet Volume 9.7 fL (7.4-10.4); Nucleated Red Blood Cells % 0 % (-); Platelet Count 203 10^3/uL (130-400); Red Cell Dist. Width 15.9 % (11.5-14.5); White Blood Cell Count 5.6 10^3/uL (4.8-10.8)
== END ==
LOC: REG 08:13
PROVIDERS: ATTENDING PHYSICIAN Internal Medicine Hematology & Oncology; FAMILY PHYSICIAN Family Medicine
DX: R91.8 Other nonspecific abnormal finding of lung field (principal); C61 Malignant neoplasm of prostate; N18.9 Chronic kidney disease, unspecified; N18.4 Chronic kidney disease, stage 4 (severe)
CPT/HCPCS: 36415; 85025

== ENCOUNTER → 2024-03-06 07:41 | Outpatient (REF) | payer MEDICARE, SELFPAY ==
[2024-03-06 08:00] VITALS: BP 151/73; BP_SYST 68
== END ==
LOC: RADI 07:41
PROVIDERS: ATTENDING PHYSICIAN Radiology Diagnostic Radiology; FAMILY PHYSICIAN Family Medicine
DX: Z43.6 Encounter for attention to other artificial openings of urinary tract (principal); N13.30 Unspecified hydronephrosis
CPT/HCPCS: 50435; C1729; C1769

== ENCOUNTER → 2024-03-17 07:10 | Outpatient (REF) | payer MEDICARE, SELFPAY ==
[2024-03-17 08:33] LABS: % Basophils 0.5 % (0-2); % Immature Granulocytes 1.2 % (0-0.5); % Lymphocytes 12.5 % (20.5-51.1); % Monocytes 8.1 % (1.7-9.3); % Neutrophils 77.7 % (42.2-75.2); Absolute Immature Granulocytes 0.1 10^3/uL (0-0.05); Absolute Lymphocytes 0.8 10^3/uL (1.2-3.4); Absolute Monocytes 0.5 10^3/uL (0.1-0.6); Absolute Neutrophils 5.1 10^3/uL (1.4-6.5); Hematocrit 34.4 % (39.0-52.0); Hemoglobin 10.8 g/dL (13.0-18.0); Mean Corp Hgb Conc. 31.4 g/dL (33.0-37.0); Mean Corpuscular Hgb 31.2 pg (27.0-31.0); Mean Corpuscular Volume 99.4 fL (80.0-94.0); Mean Platelet Volume 9.7 fL (7.4-10.4); Nucleated Red Blood Cells % 0 % (-); Platelet Count 263 10^3/uL (130-400); Red Blood Cell Count 3.46 10^6/uL (4.70-6.10); Red Cell Dist. Width 14.5 % (11.5-14.5); White Blood Cell Count 6.6 10^3/uL (4.8-10.8)
== END ==
LOC: REG 07:10
PROVIDERS: ATTENDING PHYSICIAN Internal Medicine Hematology & Oncology; FAMILY PHYSICIAN Family Medicine
DX: R91.8 Other nonspecific abnormal finding of lung field (principal); C61 Malignant neoplasm of prostate; N18.9 Chronic kidney disease, unspecified; N18.4 Chronic kidney disease, stage 4 (severe)
CPT/HCPCS: 36415; 85025

== ENCOUNTER → 2024-04-14 07:20 | Outpatient (REF) | payer MEDICARE, SELFPAY ==
[2024-04-14 08:29] LABS: % Basophils 0.3 % (0-2); % Eosinophils 0.5 % (0-6); % Immature Granulocytes 1.2 % (0-0.5); % Lymphocytes 17.1 % (20.5-51.1); % Monocytes 8.9 % (1.7-9.3); Absolute Immature Granulocytes 0.1 10^3/uL (0-0.05); Absolute Monocytes 0.5 10^3/uL (0.1-0.6); Absolute Neutrophils 4.3 10^3/uL (1.4-6.5); Hematocrit 33.9 % (39.0-52.0); Hemoglobin 11.2 g/dL (13.0-18.0); Mean Corpuscular Hgb 31.3 pg (27.0-31.0); Mean Corpuscular Volume 94.7 fL (80.0-94.0); Mean Platelet Volume 9.6 fL (7.4-10.4); Nucleated Red Blood Cells % 0 % (-); Platelet Count 284 10^3/uL (130-400); Red Blood Cell Count 3.58 10^6/uL (4.70-6.10); Red Cell Dist. Width 13.9 % (11.5-14.5)
== END ==
LOC: REG 07:20
PROVIDERS: ATTENDING PHYSICIAN Internal Medicine Hematology & Oncology; FAMILY PHYSICIAN Family Medicine
DX: R91.8 Other nonspecific abnormal finding of lung field (principal); C61 Malignant neoplasm of prostate; N18.9 Chronic kidney disease, unspecified; N18.4 Chronic kidney disease, stage 4 (severe)
CPT/HCPCS: 36415; 85025

== ENCOUNTER → 2024-04-20 06:58 | Outpatient (REF) | payer MEDICARE, SELFPAY ==
[2024-04-20 07:46] LABS: % Basophils 0.3 % (0-2); % Eosinophils 2.2 % (0-6); % Immature Granulocytes 1.2 % (0-0.5); % Lymphocytes 11.9 % (20.5-51.1); % Monocytes 8.5 % (1.7-9.3); % Neutrophils 75.9 % (42.2-75.2); Absolute Eosinophils 0.1 10^3/uL (0-0.7); Absolute Immature Granulocytes 0.1 10^3/uL (0-0.05); Absolute Lymphocytes 0.7 10^3/uL (1.2-3.4); Absolute Monocytes 0.5 10^3/uL (0.1-0.6); Absolute Neutrophils 4.6 10^3/uL (1.4-6.5); Hematocrit 31.9 % (39.0-52.0); Hemoglobin 10.5 g/dL (13.0-18.0); Mean Corp Hgb Conc. 32.9 g/dL (33.0-37.0); Mean Corpuscular Hgb 31.5 pg (27.0-31.0); Mean Corpuscular Volume 95.8 fL (80.0-94.0); Mean Platelet Volume 9.8 fL (7.4-10.4); Nucleated Red Blood Cells % 0 % (-); Platelet Count 239 10^3/uL (130-400); Red Blood Cell Count 3.33 10^6/uL (4.70-6.10); Red Cell Dist. Width 13.8 % (11.5-14.5)
[2024-04-20 08:24] LABS: PSA, Total - Diagnostic 0.07 ng/ml (0.0-4.0)
[2024-04-20 08:54] LABS: ALT (SGPT) < 10 U/L (0-50); AST (SGOT) 14 U/L (17-59); Albumin 3.8 g/dl (3.5-5.0); Alkaline Phosphatase 90 U/L (38-126); Blood Urea Nitrogen 47 mg/dl (9-20); Calcium 9.3 mg/dl (8.4-10.2); Carbon Dioxide 25 mmol/L (22-30); Chloride 103 mmol/L (98-107); Glucose 163 mg/dl (70-99); Potassium 3.9 mmol/L (3.5-5.1); Sodium 140 mmol/L (135-145); Total Bilirubin 0.6 mg/dl (0.2-1.3); Total Protein 6.4 g/dl (6.3-8.2); eGFR 10.18
== END ==
LOC: REG 06:58
PROVIDERS: ATTENDING PHYSICIAN Internal Medicine Hematology & Oncology; FAMILY PHYSICIAN Family Medicine
DX: C61 Malignant neoplasm of prostate (principal); R91.8 Other nonspecific abnormal finding of lung field; N18.9 Chronic kidney disease, unspecified
CPT/HCPCS: 36415; 80053; 84153; 85025

== ENCOUNTER → 2024-05-12 07:18 | Outpatient (REF) | payer MEDICARE, SELFPAY ==
[2024-05-12 09:37] LABS: % Basophils 0.3 % (0-2); % Eosinophils 4.1 % (0-6); % Immature Granulocytes 2.2 % (0-0.5); % Lymphocytes 14.4 % (20.5-51.1); % Monocytes 10.7 % (1.7-9.3); % Neutrophils 68.3 % (42.2-75.2); Absolute Eosinophils 0.3 10^3/uL (0-0.7); Absolute Immature Granulocytes 0.2 10^3/uL (0-0.05); Absolute Monocytes 0.7 10^3/uL (0.1-0.6); Absolute Neutrophils 4.6 10^3/uL (1.4-6.5); Hematocrit 31.9 % (39.0-52.0); Hemoglobin 10.3 g/dL (13.0-18.0); Mean Corp Hgb Conc. 32.3 g/dL (33.0-37.0); Mean Corpuscular Hgb 31.5 pg (27.0-31.0); Mean Corpuscular Volume 97.6 fL (80.0-94.0); Mean Platelet Volume 9.4 fL (7.4-10.4); Nucleated Red Blood Cells % 0 % (-); Platelet Count 228 10^3/uL (130-400); Red Blood Cell Count 3.27 10^6/uL (4.70-6.10); Red Cell Dist. Width 13.5 % (11.5-14.5); White Blood Cell Count 6.8 10^3/uL (4.8-10.8)
== END ==
LOC: REG 07:18
PROVIDERS: ATTENDING PHYSICIAN Internal Medicine Hematology & Oncology; FAMILY PHYSICIAN Family Medicine
DX: R91.8 Other nonspecific abnormal finding of lung field (principal); C61 Malignant neoplasm of prostate; N18.9 Chronic kidney disease, unspecified; N18.4 Chronic kidney disease, stage 4 (severe)
CPT/HCPCS: 36415; 85025

== ENCOUNTER → 2024-05-15 13:56 | Outpatient (REF) | payer MEDICARE, SELFPAY ==
[2024-05-15 12:01] LABS: Iron 54 ug/dl (49-181)
[2024-05-15 12:12] LABS: Percent Saturation 21 % (20-50); Total Iron Binding Capacity 254 ug/dl (261-462)
[2024-05-15 12:36] LABS: Ferritin 41.8 ng/ml (17.9-464.0)
== END ==
LOC: OIDL 13:56
PROVIDERS: ATTENDING PHYSICIAN Internal Medicine Hematology & Oncology
DX: R91.8 Other nonspecific abnormal finding of lung field (principal); C61 Malignant neoplasm of prostate; N18.9 Chronic kidney disease, unspecified; N18.4 Chronic kidney disease, stage 4 (severe)
CPT/HCPCS: 82728; 83540; 83550

== ENCOUNTER → 2024-06-06 12:12 | Outpatient (REF) | payer MEDICARE, SELFPAY ==
[2024-06-06 12:29] VITALS: BP 125/81; BP_SYST 60
[2024-06-06 13:10] VITALS: BP 132/75; BP_SYST 84
[2024-06-06 13:28] VITALS: BP 132/75
== END ==
LOC: RADI 12:12
PROVIDERS: ATTENDING PHYSICIAN Radiology Vascular & Interventional Radiology; FAMILY PHYSICIAN Family Medicine
DX: Z43.6 Encounter for attention to other artificial openings of urinary tract (principal); N13.30 Unspecified hydronephrosis
CPT/HCPCS: 50435; C1729; C1769

== ENCOUNTER → 2024-06-08 07:52 | Outpatient (REF) | payer MEDICARE, SELFPAY ==
[2024-06-08 12:14] LABS: PSA, Total - Diagnostic 0.11 ng/ml (0.0-4.0)
[2024-06-10 21:17] LABS: % Free Testosterone <1.8 % (1.6-2.9); Free Testosterone <1 pg/mL (47-244); Sex Hormone Binding Globulin 30 nmol/L (19-76); Testosterone, Bioavailable <1 ng/dL (131-682); Total Testosterone <3 ng/dL (300-720)
== END ==
LOC: REG 07:52
PROVIDERS: ATTENDING PHYSICIAN Family Medicine Geriatric Medicine
DX: C61 Malignant neoplasm of prostate (principal); Z79.818 Long term (current) use of other agents affecting estrogen receptors and estrogen levels
CPT/HCPCS: 36415; 84153; 84270; 84402; 84403

== ENCOUNTER → 2024-06-12 10:09 | Outpatient (REF) | payer MEDICARE, SELFPAY ==
[2024-06-12 10:49] LABS: % Basophils 0.3 % (0-2); % Eosinophils 2.2 % (0-6); % Immature Granulocytes 0.6 % (0-0.5); % Lymphocytes 10.9 % (20.5-51.1); % Monocytes 10.5 % (1.7-9.3); % Neutrophils 75.5 % (42.2-75.2); Absolute Eosinophils 0.2 10^3/uL (0-0.7); Absolute Lymphocytes 0.8 10^3/uL (1.2-3.4); Absolute Monocytes 0.8 10^3/uL (0.1-0.6); Absolute Neutrophils 5.5 10^3/uL (1.4-6.5); Hematocrit 29.3 % (39.0-52.0); Hemoglobin 9.5 g/dL (13.0-18.0); Mean Corp Hgb Conc. 32.4 g/dL (33.0-37.0); Mean Corpuscular Hgb 30.9 pg (27.0-31.0); Mean Corpuscular Volume 95.4 fL (80.0-94.0); Mean Platelet Volume 9.2 fL (7.4-10.4); Platelet Count 222 10^3/uL (130-400); Red Blood Cell Count 3.07 10^6/uL (4.70-6.10); White Blood Cell Count 7.3 10^3/uL (4.8-10.8)
== END ==
LOC: OIDL 10:09
PROVIDERS: ATTENDING PHYSICIAN Internal Medicine Hematology & Oncology; FAMILY PHYSICIAN Family Medicine
DX: R91.8 Other nonspecific abnormal finding of lung field (principal)
CPT/HCPCS: 36415; 85025

== ENCOUNTER 2024-07-01 09:40 | Inpatient (IN) | payer MEDICARE, SELFPAY ==
[2024-07-01] VITALS (13 sets, daily range): BP systolic 59–171; BP diastolic 62–85; BMI 26.0
[2024-07-01 07:21] LABS: % Basophils 0.2 % (0-2); % Eosinophils 2.1 % (0-6); % Immature Granulocytes 1.5 % (0-0.5); % Lymphocytes 9.6 % (20.5-51.1); % Monocytes 6.9 % (1.7-9.3); % Neutrophils 79.7 % (42.2-75.2); Absolute Eosinophils 0.3 10^3/uL (0-0.7); Absolute Immature Granulocytes 0.2 10^3/uL (0-0.05); Absolute Lymphocytes 1.2 10^3/uL (1.2-3.4); Absolute Monocytes 0.8 10^3/uL (0.1-0.6); Absolute Neutrophils 9.7 10^3/uL (1.4-6.5); Hematocrit 34.4 % (39.0-52.0); Hemoglobin 11.1 g/dL (13.0-18.0); Mean Corp Hgb Conc. 32.3 g/dL (33.0-37.0); Mean Corpuscular Hgb 31.4 pg (27.0-31.0); Mean Corpuscular Volume 97.5 fL (80.0-94.0); Nucleated Red Blood Cells % 0 % (-); Platelet Count 267 10^3/uL (130-400); Red Blood Cell Count 3.53 10^6/uL (4.70-6.10); White Blood Cell Count 12.1 10^3/uL (4.8-10.8)
--- NOTE | 2024-07-01 07:44 | ED.GENMED ---
History of Present Illness
General
Chief Complaint: Catheter/Tube Problem
Source: patient
Exam Limitations: none
Time Seen by Provider: 07/01/24 07:27
Nursing documentation reviewed up to this point in time: agreed with
History of Present Illness
History of Present Illness:
78-year-old male presents emergency department due to left nephrostomy tube displaced. It is leaking onto the bed.
Past History
Past History
ED Past Medical History: Renal failure and Other (Prostate hypertrophy); Negative Asthma, HTN, Hypercholesterolemia or NIDDM
ED Past Surgical History: Orthopedic (Right rotator cuff), Urological (Bilateral nephrostomy tubes) and Other (Cataracts, Inguinal hernia, Polyps removed form Throat)
Social History
Tobacco: Former smoker
Alcohol: None
Personal:
Living: with family
Review of Systems
Review of Systems
Allergies reviewed?: Yes
All Other Systems: Not applicable
Constitutional: Reports no symptoms
EENT: Reports no symptoms
Respiratory: Reports no symptoms
Cardiac: Reports no symptoms
ABD/GI: Reports no symptoms
: Reports flank pain and other (Nephrostomy tubes displaced)
Musculoskeletal: Reports no symptoms
Skin: Reports no symptoms
Neurological: Reports no symptoms
Endocrine: Reports no symptoms
Hematologic/Lymphatic: Reports no symptoms
Psychiatric: Reports no symptoms
Phy Exam
Physical Exam
Physical Exam:
Physical Exam
General: no apparent distress, not acutely ill
Neck: supple. no meningeal signs. normal posterior pharynx
Heart: s1/s2 regular rate and rhythm, no murmur. equal radial
pulses.
HEENT: Pupils equal round reactive to light, EOMI
Lungs: no acute respiratory distress. clear bilaterally
Abdomen: normal bowel sounds. not tender. no CVAT
Back: Left nephrostomy stoma, leaking urine, right nephrostomy tube in place
Neuro: alert and oriented. no focal neurological deficits cranial nerves II through XII intact
Skin: no rash
Psychiatric: well kept. interactive and cooperative
Extremities: no edema. no calf tenderness. negative homans. good distal pulses
Course
Orders/Labs/Results
Orders:
Orders
07/01/24 06:56
IV Insert/Care/Rem.- Treatment PRN
07/01/24 07:09
Complete Blood Count/With Diff Urgent
Comprehensive Metabolic Panel Urgent
Lipase Urgent
07/01/24 07:43
Consult Interventional Radiology [IRAD CONSULT] Urgent
Consulting Provider: Giles Sheridan
Was physician already notified: Yes
Reason for Consult/Procedure: displaced nephrostomy
Acknowledgement that appropriate orders are entered: Yes
07/01/24 08:48
Urinalysis Reflex To Culture Urgent
Date Specimen was Collected: 07/01/24
Time Specimen was Collected: 06:57
Urine Microscopic Reflex Cult Urgent
Urine Culture Urgent
MYKE Source: U
Specimen Description:
Date Specimen was Collected: 07/01/24
Time Specimen was Collected: 06:57
07/01/24 09:26
Admit/Transfer Patient As Directed
Co-Sign Provider:
Level of Care: Inpatient admission
Assign to:: Telemetry
Physician / Group: porterrichjose angel/medicine
Diagnosis: jaylyn, obstructive uropathy
Reason for Telemetry: Arrhythmia
Date to Stop Telemetry: 07/04/24
Time to Stop Telemetry: 11:00
Reason for Hospitalization: jaylyn, obstructive uropathy
Expected length of stay greater than two midnights?: Yes
ELOS- Estimated Length of Stay in days: 3
I certify the patient meets the requirements for IP care: Yes
PRN Pain Medication Management As Directed
May give lesser potent ordered pain med per pt: Yes
preference::
Protocol:: Medication orders for pain may be administered in a
manner that supports deferring to patient preference
when the pt is:
- Requesting an ordered lesser potent pain medication.
Least to most potent pain medications are defined
as: acetaminophen < NSAID < tramadol < opioids
(morphine, oxycodone, hydromorphone).
- Requesting a lesser dose of the same medication IF
ORDERED.
- Requesting a less intrusive route of administration
if both routes are prescribed by the provider (PO <
IV).
07/01/24 09:28
Code Status As Directed
Resuscitation Status: Full Code
07/01/24 Lunch
NPO
Allow oral meds: Yes
Allow clear liquids: No
07/01/24 11:58
Bisacodyl [Dulcolax] 10 mg RECTAL [id number] PRN
Docusate W/Senna [Senokot-S] 1 tablet PO BIDPRN PRN
Polyethylene Glycol Powder [Miralax] 17 grams PO BID PRN
Polyethylene Glycol Powder [Miralax] 17 grams PO DAILYPRN PRN
07/01/24 11:58
Activity As Directed
Activity Level: As Tolerated
Vital Signs As Directed
Frequency: Per unit guidelines
DX Deep Vein Thrombosis Video Routine
07/01/24 Dinner
Cholesterol Lowering
At Your Request: Full Participation
Does patient need a safe tray?: No
Cholesterol Lowering: Sodium, 2 Gram
07/01/24 16:00
Heparin 5,000 units SC Q8
Sodium Bicarbonate 650 mg PO TID
07/02/24 06:00
Complete Blood Count/No Diff IN AM
Comprehensive Metabolic Panel IN AM
Magnesium IN AM
07/02/24 08:00
Calcitriol [Rocaltrol] 0.25 mcg PO DAILY
Calcium Acetate [Phoslo] 667 mg PO DAILY
07/04/24 11:00
DC Protocol for Telemetry ONCE
Abnormal Lab Results
07/01/24 07/01/24
07:09 08:48
WBC 12.1 H 10^3/uL
(4.8-10.8)
RBC 3.53 L 10^6/uL
(4.70-6.10)
Hgb 11.1 L g/dL
(13.0-18.0)
Hct 34.4 L %
(39.0-52.0)
MCV 97.5 H fL
(80.0-94.0)
MCH 31.4 H pg
(27.0-31.0)
MCHC 32.3 L g/dL
(33.0-37.0)
Abs Immat Gran (auto) 0.2 H 10^3/uL
(0-0.05)
Absolute Neuts (auto) 9.7 H 10^3/uL
(1.4-6.5)
Absolute Monos (auto) 0.8 H 10^3/uL
(0.1-0.6)
Immature Gran % 1.5 H %
(0-0.5)
Neutrophils % 79.7 H %
(42.2-75.2)
Lymphocytes % 9.6 L %
(20.5-51.1)
BUN 75 H mg/dl
(9-20)
Creatinine 8.3 H* mg/dL
(0.7-1.3)
Glucose 144 H mg/dl
(70-99)
Calcium 10.4 H mg/dl
(8.4-10.2)
Ur Occult Blood Reflex 2+ A
(Negative)
Urine Nitrite (Reflex) Positive A
(Negative)
Leukocyte Esterase Rfl 3+ A
(Negative)
Urine Bacteria (Reflex) Few A
(Negative)
Urine Glucose 2+ A
(Negative)
Urine Albumin (Reflex) 3+ A
(Neg - Trace)
07/01/24 07:09
07/01/24 07:09
Vital Signs
Initial and Last Documented VS:
Initial Vital Signs
Pulse Resp BP Pulse Ox
82 20 127/76 98
07/01/24 06:37 07/01/24 06:37 07/01/24 06:37 07/01/24 06:37
Last Documented Vital Signs
Temp Pulse Resp BP Pulse Ox
98.5 F 90 16 138/75 98
07/01/24 10:58 07/01/24 12:10 07/01/24 12:10 07/01/24 12:10 07/01/24 12:10
MDM/Problems Addressed
Differential Diagnosis Includes:
UTI, renal failure
MDM/Problems Addressed:
78 yo male with acute on chronic renal failure, left nephrostomy tube displaced. Admit to hospitalist for further management.
Chronic conditions affecting care: Kidney disease
Acute Exacerbation and/or Progression of Chronic Illness: Kidney disease
*Pulse Oximetry
Patient hypoxic: no
*Critical Care Note
Total Time (30-74mins, 75-104mins- exclusive of procedures): Not Applicable
Data Reviewed
Review of Other/Old Records Reveals: Records (prior nephrostomy tube changes)
Source: records
Patient Management
Social determinants of health affecting care: Living situation and Strong social support
Discussion with other providers: Hospitalist
Escalation/DeEscalation of care consider admission/obs:
admit not indicated
ED Attending Note
-
Portions of this chart may have been created with voice recognition software.� Occasional wrong word or��sound alike� substitutions may have occurred due to the inherent limitations of voice recognition software.
Discharge Plan
Departure
Patient Disposition: Admit
Date of Disposition: 07/01/24
Time of Disposition: 08:22
Admit to: Med/Surg
Presentation/result/management discussed w/ accepting MD/DO: Hospitalist
Patient with high blood pressure during this ER visit?: Yes
Condition: Fair
Discharge Problem:
Acute renal failure, Urinary retention, Displacement of nephrostomy catheter
Interventions
Interventions:
*Risk Screen - Suicide Last Done: 07/01/24 06:37
*General Assessment Last Done: 07/01/24 07:08
*Neglect/Abuse Screening Last Done: 07/01/24 07:08
*ED- Fall Risk Assessment Last Done: 07/01/24 07:08
*ED COVID-19 Vaccine History Last Done: 07/01/24 07:08
*Nursing Disposition Last Done: 07/01/24 12:11
GD-Ozfmlb-Kbprgidxtl Assessment Last Done: 07/01/24 09:00
ED-Male Genitourinary Assessment Last Done: 07/01/24 09:00
Discharge Date and Time
Discharge Date/Time: 07/01/24 12:00
[2024-07-01 07:48] LABS: ALT (SGPT) 15 U/L (0-50); AST (SGOT) 19 U/L (17-59); Albumin 3.9 g/dl (3.5-5.0); Alkaline Phosphatase 67 U/L (38-126); Blood Urea Nitrogen 75 mg/dl (9-20); Calcium 10.4 mg/dl (8.4-10.2); Carbon Dioxide 24 mmol/L (22-30); Chloride 105 mmol/L (98-107); Estimated Creatinine Clearance 7 ml/min; Glucose 144 mg/dl (70-99); Lipase 149 U/L (23-300); Potassium 4.6 mmol/L (3.5-5.1); Sodium 142 mmol/L (135-145); Total Bilirubin 0.5 mg/dl (0.2-1.3); Total Protein 6.9 g/dl (6.3-8.2); eGFR 6.08
[2024-07-01 10:37] LABS: Urine Albumin 3+ (Neg - Trace); Urine Bilirubin Negative (Negative); Urine Character Clear (Clear); Urine Color Yellow; Urine Glucose 2+ (Negative); Urine Ketone Negative (Negative); Urine Leukocyte 3+ (Negative); Urine Nitrite Positive (Negative); Urine Occult Blood 2+ (Negative); Urine Urobilinogen Negative (Neg - 1+)
[2024-07-01 10:53] LABS: Urine Amorphous Seen; Urine Squamous Cell 0-2 /LPF (Few)
[2024-07-01 10:54] LABS: Urine Bacteria Few (Negative); Urine Red Blood Cell 0-2 /HPF (0-2); Urine White Cell 0-2 /HPF (0-5)
--- NOTE | 2024-07-01 14:12 | HPS.HSE ---
Family Physician
-
Family Physician: Doni Simons
Chief Complaint
-
78-year-old male past medical history of chronic urinary retention/ureteral obstruction status post bilateral nephrostomy tubes, hypertension, presenting due to left nephrostomy tube displacement. . Severe hydronephrosis of left kidney noted.
History of Present Illness
78-year-old male past medical history of chronic urinary retention/ureteral obstruction status post bilateral nephrostomy tubes, hypertension, presenting due to left nephrostomy tube displacement. States he pulled out morning sleeping. Urine was
leaking onto the bed in the ED. Vitals grossly unremarkable except for heart rate that is 90. Normotensive. Respiratory rate 16. Afebrile. White count noted to be 12.1 although possibly hemoconcentrated, creatinine 8.3 from baseline at
approximately 5. UA positive. Patient underwent catheter exchange, successful recanalization of the left PCN. Severe hydronephrosis of left kidney noted.
Medical History
Past Medical History
Past Medical History: Reports Other (chronic urinary retention/ureteral obstruction status post bilateral nephrostomy tubes, hypertension,)
Past Surgical History: Reports Other (Orthopedic (Right rotator cuff, ), Urological (Bilateral nephrostomy tubes) and Other (Cataracts, Inguinal hernia, Polyps removed form Throat))
Social History
Tobacco: Non-smoker
Alcohol: None
Drug: None
Family History
Family History: Not pertinent
Allergies / Home Medications
Allergies reflects when Allergies were last updated in [facility].
Home Medications with original date entered in [facility]
Allergy/Medication List:
Allergies
Allergy/AdvReac Type Severity Reaction Status Date / Time
No Known Allergies Allergy Verified 07/01/24 06:36
Home Medications
polyethylene glycol 3350 17 gram oral powder packet 17 grams PO BID PRN constipation 03/03/22
calcium acetate 667 mg tablet 667 mg PO DAILY Kidney Disease 04/19/23
calcitriol 0.25 mcg capsule 0.25 mcg PO DAILY Supplement 01/26/24
sodium bicarbonate 650 mg tablet 650 mg PO TID #60 tabs 01/30/24
Review of Systems
-
History Source: Patient
A 12 point ROS was completed and negative except as noted: Yes
Physical Exam
Vital Signs
Vital Signs
Temp Pulse Resp BP Pulse Ox
98.5 F 90 16 138/75 98
07/01/24 10:58 07/01/24 12:10 07/01/24 12:10 07/01/24 12:10 07/01/24 12:10
Physical Exam
General: Well Developed, Well Nourished and No Apparent Distress
HEENT: NormoCephalic, Moist mucous membranes and Atraumatic
Respiratory: Clear
Cardiac: S1/S2 and Regular Rhythm; No Murmur or Rub
GI: Soft, Non Distended, Normal Bowel Sounds and Tender (lower abdomen); No Organomegaly
Rectal: Deferred by Provider
Genito-urinary: Other (left PCN in place, draining clear yellow urine)
Musculoskeletal: No Clubbing, No Cyanosis and No Edema
Skin: No Rash
Neuro: Nonfocal/grossly intact
Laboratory Results
-
07/01/24 07:09
07/01/24 07:09
Laboratory Results
Total Bilirubin 0.5 mg/dl (0.2-1.3) 07/01/24 07:09
AST 19 U/L (17-59) 07/01/24 07:09
ALT 15 U/L (0-50) 07/01/24 07:09
Alkaline Phosphatase 67 U/L (38-126) 07/01/24 07:09
Lipase 149 U/L (23-300) 07/01/24 07:09
Data Reviewed
-
Lab Data: Labs Reviewed by me
Impression/Plan
-
IMPRESSION:
78-year-old male past medical history of chronic urinary retention/ureteral obstruction status post bilateral nephrostomy tubes, hypertension, presenting due to left nephrostomy tube displacement.
PLAN:
#PARUL on CKD 5
#Acute on chronic obstructive uropathy
#Left hydronephrosis
#Left nephrostomy tube displacement
#Possible complicated UTI, nephrostomy tube related
� PCN exchange today
� Monitor renal function status post exchange
� Empiric antibiotics
� Follow-up urine cultures
� Follow-up urology outpatient once renal function improved.
� Follow-up with Dr. Wilkinson outpatient
� Continue sodium bicarbonate
#Stage IV prostate cancer on abiraterone therapy
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
#Status post TURP
Code Status: Full code
DVT prophylaxis: Heparin subq.
--- NOTE | 2024-07-01 14:57 | CM ---
Met patient on floor. Came to hospital when nephrostomy tube came out. He lives with in 2 level home. One step in side house, 4 from back. Half bath on data entry processor. UP full flight to bedroom and bathroom. He is independent at home. NO DME,
VNA, SNF.
PCP Dr. Simons
Pharmacy : [facility]
Plan: home no needs anticipated.
[2024-07-01] MEDS: HEPARIN 5000 UNITS SC (15:52)
[2024-07-01] MEDS: SODIUM BICARBONATE 650 MG PO ×2 (15:53→21:53)
[2024-07-01] MEDS: ROCEPHIN 1000 MG IV (15:54)
[2024-07-01] MEDS: STERILE WATER FOR INJECTION 10 ML IV (15:54)
--- NOTE | 2024-07-01 16:54 | PTCARENOTE ---
pt had left nephrostomy tube replaced in IR, AO. HAs had b/l tubes ~3yrs. to avoid dialysis. may have dislodged it while sleeping, had increased pain. IR drain 300mls from L kidney
--- NOTE | 2024-07-01 16:56 | PTCARENOTE ---
started at 1649 unit of PLT. unit is A- pt is O- this is compatible. removed 20g IV from RAC
[2024-07-01] MEDS: MELATONIN 5 MG PO (21:53)
[2024-07-02] VITALS (8 sets, daily range): BP systolic 104–128; BP diastolic 51–70
[2024-07-02] MEDS: HEPARIN 5000 UNITS SC ×4 (00:28→23:06)
[2024-07-02 05:05] LABS: Hematocrit 27.1 % (39.0-52.0); Hemoglobin 8.9 g/dL (13.0-18.0); Mean Corp Hgb Conc. 32.8 g/dL (33.0-37.0); Mean Corpuscular Hgb 31.1 pg (27.0-31.0); Mean Corpuscular Volume 94.8 fL (80.0-94.0); Mean Platelet Volume 9.2 fL (7.4-10.4); Platelet Count 227 10^3/uL (130-400); Red Blood Cell Count 2.86 10^6/uL (4.70-6.10); Red Cell Dist. Width 13.6 % (11.5-14.5); White Blood Cell Count 9.4 10^3/uL (4.8-10.8)
[2024-07-02 05:40] LABS: ALT (SGPT) 13 U/L (0-50); AST (SGOT) 14 U/L (17-59); Albumin 3.5 g/dl (3.5-5.0); Alkaline Phosphatase 57 U/L (38-126); Blood Urea Nitrogen 75 mg/dl (9-20); Calcium 9.4 mg/dl (8.4-10.2); Carbon Dioxide 24 mmol/L (22-30); Chloride 102 mmol/L (98-107); Estimated Creatinine Clearance 7 ml/min; Glucose 105 mg/dl (70-99); Potassium 5.3 mmol/L (3.5-5.1); Sodium 137 mmol/L (135-145); Total Bilirubin 0.5 mg/dl (0.2-1.3); eGFR 5.67
[2024-07-02] MEDS: PHOSLO 667 MG PO (09:20)
[2024-07-02] MEDS: SODIUM BICARBONATE 650 MG PO ×3 (09:20→22:38)
[2024-07-02] MEDS: ROCALTROL 0.25 MCG PO (09:20)
--- NOTE | 2024-07-02 12:23 | PTCARENOTE ---
pt had a run of [facility] 105-112, while laying in bed, no CP or complaints. Currently in U/S HR 54. TT to Dr. Massey
--- NOTE | 2024-07-02 13:28 | W.PN.HOSP.TC ---
Today's Communication/Plan
-
await trending down Scr
f/u cultures
cont empiric abx
Assessment / Plan
Assessment / Plan
hysical Exam
General: Well Developed, Well Nourished and No Apparent Distress
HEENT: NormoCephalic, Moist mucous membranes and Atraumatic
Respiratory: Clear
Cardiac: S1/S2 and Regular Rhythm; No Murmur or Rub
GI: Soft, Non Distended, Normal Bowel Sounds and Tender (lower abdomen); No Organomegaly
Rectal: Deferred by Provider
Genito-urinary: Other (B/l PCN in place, draining clear yellow urine)
Musculoskeletal: No Clubbing, No Cyanosis and No Edema
Skin: No Rash
Neuro: Nonfocal/grossly intact
78-year-old male past medical history of chronic urinary retention/ureteral obstruction status post bilateral nephrostomy tubes, hypertension, presenting due to left nephrostomy tube displacement.
PLAN:
#PARUL on CKD 5
#Acute on chronic obstructive uropathy
#Left hydronephrosis
#Left nephrostomy tube displacement
#Possible complicated UTI, nephrostomy tube related
� PCN exchange 07/01
� Monitor renal function status post exchange, anticipate trending down tomorrow
- US without evidence of hydro now
� Empiric antibiotics
� Follow-up urine cultures
� Follow-up urology outpatient once renal function improved.
� Follow-up with Dr. Wilkinson outpatient
� Continue sodium bicarbonate
#Hyperkalemia
� Monitor and treat as needed
� On sodium bicarb
#Stage IV prostate cancer on abiraterone therapy
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
#Status post TURP
Code Status: Full code
DVT prophylaxis: Heparin subq.
Anticipated Discharge: Today
Subjective/Interval History
-
Date of Service: July 02, 2024
No acute events, bilateral PCN bags filled with clear yellow urine
Objective Data
-
Labs:
Laboratory Results
07/02/24
04:27
WBC 9.4
Hgb 8.9 L
Hct 27.1 L
Plt Count 227
Sodium 137
Potassium 5.3 H
Chloride 102
Carbon Dioxide 24
BUN 75 H
Creatinine 8.8 H*
Glucose 105 H
Calcium 9.4
Total Bilirubin 0.5
AST 14 L
ALT 13
Alkaline Phosphatase 57
Vital Signs:
Vital Signs
Temp Pulse Resp BP Pulse Ox
98.1 F 55 16 124/65 95
07/02/24 11:38 07/02/24 11:38 07/02/24 11:38 07/02/24 11:38 07/02/24 11:38
I&O
07/01/24 07/02/24 07/03/24
06:59 06:59 06:59
Intake Total 1680 / 1680 240 / 240
Output Total 1395 / 1395 535 / 535
Balance 285 / 285 -295 / -295
Review of Systems
-
History Source: Patient
All other systems: Not reviewed unless documented
Data Reviewed
-
Ultrasound: Report Reviewed by me
Labs: Labs Reviewed by me
[2024-07-02] MEDS: LOKELMA 5 GRAM PO (14:06)
[2024-07-02] MEDS: ROCEPHIN 1000 MG IV (16:52)
[2024-07-02] MEDS: STERILE WATER FOR INJECTION 10 ML IV (16:53)
[2024-07-02] MEDS: MELATONIN 5 MG PO (22:38)
[2024-07-03] VITALS (7 sets, daily range): BP systolic 116–139; BP diastolic 51–70
[2024-07-03 07:28] LABS: Hemoglobin 9.7 g/dL (13.0-18.0); Mean Corp Hgb Conc. 33.4 g/dL (33.0-37.0); Mean Corpuscular Hgb 31.8 pg (27.0-31.0); Mean Corpuscular Volume 95.1 fL (80.0-94.0); Mean Platelet Volume 9.5 fL (7.4-10.4); Platelet Count 220 10^3/uL (130-400); Red Blood Cell Count 3.05 10^6/uL (4.70-6.10); Red Cell Dist. Width 13.8 % (11.5-14.5)
[2024-07-03 08:24] LABS: Blood Urea Nitrogen 78 mg/dl (9-20); Calcium 9.6 mg/dl (8.4-10.2); Carbon Dioxide 21 mmol/L (22-30); Chloride 101 mmol/L (98-107); Estimated Creatinine Clearance 7 ml/min; Glucose 103 mg/dl (70-99); Potassium 5.2 mmol/L (3.5-5.1); Sodium 135 mmol/L (135-145); eGFR 5.67
[2024-07-03] MEDS: HEPARIN 5000 UNITS SC ×3 (08:30→23:15)
[2024-07-03] MEDS: ROCALTROL 0.25 MCG PO (08:31)
[2024-07-03] MEDS: SODIUM BICARBONATE 650 MG PO ×3 (08:31→21:12)
[2024-07-03] MEDS: PHOSLO 667 MG PO (08:31)
--- NOTE | 2024-07-03 10:22 | W.PN.HOSP.TC ---
Today's Communication/Plan
-
Stop antibiotics
Nephrology consult
Assessment / Plan
Assessment / Plan
Gen-AAOx3, NAD
HEENT-NC, AT, anicteric, clear oral mm
Neck-supple
CV-reg, no M, +S1/S2
Lungs-clear B/L
Abd-soft, NT, ND
Ext-no edema
Musculoskeletal-no cyanosis, clubbing
Skin-warm and dry
Neuro-grossly non-focal
Psych-calm, cooperative
PARUL on CKD 5 - due to Acute on chronic obstructive uropathy due to metastatic prostate cancer.
Left hydronephrosis
Left nephrostomy tube displacement -underwent successful catheter replacement by IR on July 01.
Renal ultrasound July 02 without hydronephrosis. Does show multiple punctate echogenic foci bilaterally, likely nonobstructing stones. Follow-up with urology.
Consult nephrology for opinion on PARUL. Patient not interested in dialysis however. He follows up with Dr. Dent in the office.
UTI ruled out. Urine culture shows greater than 100,000 CFU per mL of mixed debbie. Likely contamination or colonization. Urinalysis without pyuria. No systemic signs of infection.
Hyperkalemia -likely due to PARUL on CKD. Potassium 5.2. Monitor for now.
� Monitor and treat as needed
� On sodium bicarb
Stage IV prostate cancer -on abiraterone therapy
Status post TURP
Chronic macrocytic anemia -outpatient follow-up.
Code Status: Full code
DVT prophylaxis: Heparin subq.
Anticipated Discharge: Within 24 hours
Subjective/Interval History
-
Date of Service: July 03, 2024
Patient seen and examined. No complaints.
Objective Data
-
Labs:
Laboratory Results
07/03/24
06:52
WBC 7.0
Hgb 9.7 L
Hct 29.0 L
Plt Count 220
Sodium 135
Potassium 5.2 H
Chloride 101
Carbon Dioxide 21 L
BUN 78 H
Creatinine 8.8 H*
Glucose 103 H
Calcium 9.6
Vital Signs:
Vital Signs
Temp Pulse Resp BP Pulse Ox
98.1 F 51 18 139/63 98
07/03/24 07:04 07/03/24 07:04 07/03/24 07:04 07/03/24 07:04 07/03/24 07:04
I&O
07/02/24 07/03/24 07/04/24
06:59 06:59 06:59
Intake Total 1680 / 1680 1440 / 1440 750 / 750
Output Total 1395 / 1395 1085 / 1085
Balance 285 / 285 355 / 355 750 / 750
Review of Systems
-
History Source: Patient
All other systems: Reviewed and negative
--- NOTE | 2024-07-03 10:43 | CM ---
Addendum entered by Brittaney Deng RN 07/03/24 13:58:
IMM reviewed.
Original Note:
Reviewed the chart notes and spoke with the patient at the bedside. CM continues to be available to patient/family and is monitoring medical plan for needs at discharge.
Plan: Discharge to home when medically stable. No needs anticipated.
--- NOTE | 2024-07-03 12:38 | W.CON.NEPH ---
Consultation
-
Date/Time Consultation Requested: July 03, 2024 at 11 AM
Date/Time Consultation Performed: 06/02/2024 at 12 PM
Requesting Provider: Dr. Elena
Performing Provider: Dr. Chase
Reason for Consultation: Acute on chronic kidney disease
Medical History
-
Chief Complaint: Chronic kidney disease
History of Present Illness:
This is a 78-year-old gentleman who has stage IV prostate cancer on abiraterone therapy, who also has bilateral nephrostomy tubes given obstruction. These have been present for several years and are changed every 3 months. presenting due to left
nephrostomy tube displacement. . Severe hydronephrosis of left kidney noted.
Renal consult for acute on chronic kidney disease baseline creatinine 5.8 admitting creatinine of 8
He is status post nephrostomy tube replacement
Nonoliguric
Asymptomatic
Past Medical History
Prostate cancer stage IV, CKD 4, bilateral percutaneous nephrostomies, bilateral nephrolithiasis, TURP, hernia repair, cataract surgery, throat polyp resection, rotator cuff surgery
Social History
Tobacco: Non-Smoker
Alcohol: None
Drug: None
Family History
Family History: Not Pertinent
Allergies / Home Medications
Allergy/AdvReac Type Severity Reaction Status Date / Time
No Known Allergies Allergy Verified 07/01/24 06:36
�Medication �Instructions �Recorded �Confirmed �Type
polyethylene glycol 3350 17 gram 17 grams PO BID PRN constipation 03/03/22 07/01/24 History
oral powder packet
calcium acetate 667 mg tablet 667 mg PO DAILY Kidney Disease 04/19/23 07/01/24 History
calcitriol 0.25 mcg capsule 0.25 mcg PO DAILY Supplement 01/26/24 07/01/24 History
sodium bicarbonate 650 mg tablet 650 mg PO TID #60 tabs 01/30/24 07/01/24 Rx
Review of Systems
-
No chest pain or shortness of breath
All other systems: Negative unless noted
Physical Exam
Vital Signs
Vital Signs
Temp Pulse Resp BP Pulse Ox
98.0 F 55 16 130/70 95
07/03/24 11:12 07/03/24 11:12 07/03/24 11:12 07/03/24 11:12 07/03/24 11:12
Lab Results
WBC 7.0 10^3/uL (4.8-10.8) 07/03/24 06:52
RBC 3.05 10^6/uL (4.70-6.10) L 07/03/24 06:52
Hgb 9.7 g/dL (13.0-18.0) L 07/03/24 06:52
Hct 29.0 % (39.0-52.0) L 07/03/24 06:52
Plt Count 220 10^3/uL (130-400) 07/03/24 06:52
Sodium 135 mmol/L (135-145) 07/03/24 06:52
Potassium 5.2 mmol/L (3.5-5.1) H 07/03/24 06:52
Chloride 101 mmol/L (98-107) 07/03/24 06:52
Carbon Dioxide 21 mmol/L (22-30) L 07/03/24 06:52
BUN 78 mg/dl (9-20) H 07/03/24 06:52
Creatinine 8.8 mg/dL (0.7-1.3) H* 07/03/24 06:52
eGFR 5.67 07/03/24 06:52
Glucose 103 mg/dl (70-99) H 07/03/24 06:52
Calcium 9.6 mg/dl (8.4-10.2) 07/03/24 06:52
Albumin 3.5 g/dl (3.5-5.0) 07/02/24 04:27
Physical Exam
General no acute distress
HEENT no cephalic atraumatic extraocular muscle intact no scleral icterus no JVD neck supple
lungs clear to auscultation bilateral
heart regular S1-S2 positive
abdomen soft nontender positive bowel sounds
extremities no edema pulses present bilateral
Neurologically nonfocal alert and oriented x 3
Skin no lesions no abrasions no petechiae
Psych normal affect no bizarre behavior
Data Reviewed
-
Ultrasound: Image Personally Visualized and interpreted
Assessment/Plan
-
Assessment
CKD 5
Stage IV prostate cancer
Hypokalemia
Bilateral percutaneous nephrostomy
Status post dislodged left nephrostomy tube replaced
Most recent creatinine 5.8 with admitting creatinine of 8 up to 8.8
Plan
Creatinine stable he is nonoliguric
No acute need for dialysis
Follow-up with Dr. Burciaga in 2 to 3 weeks post
Monitor for another 24 hours and will decide on discharge
[2024-07-03] MEDS: MELATONIN 5 MG PO (21:12)
[2024-07-04] MEDS: MYLICON 80 MG PO (00:53)
[2024-07-04] MEDS: SENOKOT-S 1 TABLET PO ×2 (02:25→11:20)
[2024-07-04 03:00] VITALS: BP 116/52
[2024-07-04 07:24] VITALS: BP 118/67
[2024-07-04] MEDS: SODIUM BICARBONATE 650 MG PO ×2 (08:55→15:19)
[2024-07-04] MEDS: PHOSLO 667 MG PO (08:55)
[2024-07-04] MEDS: HEPARIN 5000 UNITS SC (08:55)
[2024-07-04] MEDS: ROCALTROL 0.25 MCG PO (08:55)
[2024-07-04] MEDS: MIRALAX 17 GRAMS PO (09:07)
[2024-07-04 09:32] LABS: Blood Urea Nitrogen 80 mg/dl (9-20); Calcium 9.8 mg/dl (8.4-10.2); Carbon Dioxide 20 mmol/L (22-30); Chloride 100 mmol/L (98-107); Estimated Creatinine Clearance 7 ml/min; Glucose 107 mg/dl (70-99); Potassium 5.7 mmol/L (3.5-5.1); Sodium 134 mmol/L (135-145); eGFR 5.75
--- NOTE | 2024-07-04 10:13 | W.PN.HOSP.TC ---
Today's Communication/Plan
-
Bowel regimen
Ambulate
Lokelma
Await nephrology input
Assessment / Plan
Assessment / Plan
Gen-AAOx3, NAD
HEENT-NC, AT, anicteric, clear oral mm
Neck-supple
CV-reg, no M, +S1/S2
Lungs-clear B/L
Abd-soft, NT, ND
Ext-no edema
Musculoskeletal-no cyanosis, clubbing
Skin-warm and dry
Neuro-grossly non-focal
Psych-calm, cooperative
PARUL on CKD 5 - due to Acute on chronic obstructive uropathy due to metastatic prostate cancer. Creatinine stable at 8.7.
Left hydronephrosis
Left nephrostomy tube displacement -underwent successful catheter replacement by IR on July 01.
Renal ultrasound July 02 without hydronephrosis. Does show multiple punctate echogenic foci bilaterally, likely nonobstructing stones. Follow-up with urology.
Nephrology input noted. He follows up with Dr. Dent in the office.
UTI ruled out. Urine culture shows greater than 100,000 CFU per mL of mixed debbie. Likely contamination or colonization. Urinalysis without pyuria. No systemic signs of infection. Antibiotics discontinued.
Hyperkalemia -likely due to PARUL on CKD. Potassium 5.7. Lokelma ordered.
� On sodium bicarb
Hyponatremia -134.
Constipation -increase bowel regimen. Encourage ambulation. Discussed with patient and nurse.
Stage IV prostate cancer -on abiraterone therapy
Status post TURP
Chronic macrocytic anemia -outpatient follow-up.
Code Status: Full code
DVT prophylaxis: Heparin subq.
Dispo -discharge if okay with nephrology. Outpatient follow-up.
Anticipated Discharge: Today
Subjective/Interval History
-
Date of Service: July 04, 2024
Patient seen and examined. Complaining of constipation.
Objective Data
-
Labs:
Laboratory Results
07/04/24
06:09
Sodium 134 L
Potassium 5.7 H
Chloride 100
Carbon Dioxide 20 L
BUN 80 H
Creatinine 8.7 H*
Glucose 107 H
Calcium 9.8
Vital Signs:
Vital Signs
Temp Pulse Resp BP Pulse Ox
98.2 F 65 16 118/67 96
07/04/24 07:24 07/04/24 07:24 07/04/24 07:24 07/04/24 07:24 07/04/24 07:24
I&O
07/03/24 07/04/24 07/05/24
06:59 06:59 06:59
Intake Total 1440 / 1440 2670 / 2670 660 / 660
Output Total 1085 / 1085 1350 / 1350 1800 / 1800
Balance 355 / 355 1320 / 1320 -1140 / -1140
Review of Systems
-
History Source: Patient
All other systems: Reviewed and negative
--- NOTE | 2024-07-04 10:25 | CM ---
Reviewed the chart notes. Patient for anticipated discharge today to home. CM continues to be available to patient/family and is monitoring medical plan for needs at discharge.
Plan: Discharge to home when medically stable. No additional needs identified at this time.
[2024-07-04 11:10] VITALS: BP 130/79
[2024-07-04] MEDS: LOKELMA 10 GRAM PO ×2 (11:20→15:19)
[2024-07-04] MEDS: NSS 1000 IV (11:24)
--- NOTE | 2024-07-04 12:06 | W.PN.NEPH.PH ---
Today's Communication / Plan
-
Lokelma
IV fluids
Assessment/Plan
-
Assessment
CKD 5
Stage IV prostate cancer
Hypokalemia
Bilateral percutaneous nephrostomy
Status post dislodged left nephrostomy tube replaced
Most recent creatinine 5.8 with admitting creatinine of 8 up to 8.8
Plan
Creatinine stable he is nonoliguric
No acute need for dialysis
Follow-up with Dr. Burciaga in 2 to 3 weeks post
Creatinine no improvement now with hyperkalemia.
Lokelma ordered x 1.
Will start IV fluids
The patient unwilling to give a straight answer as to whether he would accept dialysis
Recheck labs this afternoon and if stable can discharge as patient is refusing dialysis
-
-
Date of Service: July 04, 2024
CC / HPI / ROS
-
Chief Complaint:
Nephrostomy tube dislodged
History of Present Illness:
Acute on chronic kidney disease
Review of Systems:
Nonoliguric
Labs
-
Labs:
WBC 7.0 10^3/uL (4.8-10.8) 07/03/24 06:52
RBC 3.05 10^6/uL (4.70-6.10) L 07/03/24 06:52
Hgb 9.7 g/dL (13.0-18.0) L 07/03/24 06:52
Hct 29.0 % (39.0-52.0) L 07/03/24 06:52
Plt Count 220 10^3/uL (130-400) 07/03/24 06:52
eGFR 5.75 07/04/24 06:09
Albumin 3.5 g/dl (3.5-5.0) 07/02/24 04:27
Physical Exam
-
Vital Signs:
Vital Signs
Temp Pulse Resp BP Pulse Ox
98.1 F 61 15 130/79 98
07/04/24 11:10 07/04/24 11:10 07/04/24 11:10 07/04/24 11:10 07/04/24 11:10
Respiratory:: Bilateral: CTA
Lung Excursion:: Normal
Abdomen:: Soft
Bowel Sounds:: Normal
Extremity Edema:: None: Bilateral:
[2024-07-04 14:04] LABS: Blood Urea Nitrogen 78 mg/dl (9-20); Calcium 10.2 mg/dl (8.4-10.2); Carbon Dioxide 23 mmol/L (22-30); Chloride 99 mmol/L (98-107); Estimated Creatinine Clearance 7 ml/min; Glucose 96 mg/dl (70-99); Potassium 5.3 mmol/L (3.5-5.1); Sodium 138 mmol/L (135-145); eGFR 5.91
--- NOTE | 2024-07-04 14:59 | W.DS.TRANS ---
DC Summary - Network Control Operator
-
Discharge Instructions:
Discharge Diagnosis/Procedures Left nephrostomy tube displacement, chronic
kidney disease, hyperkalemia
Diet 2 Gram Sodium,Other diet
Additional Diets 2 Gram potassium diet
Activity As tolerated
Driving Restrictions As prior to admission
Bathing Restrictions None
Blood Work BMP in 3 days with your primary care doctor
Instructions:
Stand-Alone Forms:
Changes to Home Medications: No
Discharge Medications:
DC Medications w/original date entered in [employer]
polyethylene glycol 3350 17 gram oral powder packet 17 grams PO BID PRN constipation 03/03/22
calcium acetate 667 mg tablet 667 mg PO DAILY Kidney Disease 04/19/23
calcitriol 0.25 mcg capsule 0.25 mcg PO DAILY Supplement 01/26/24
sodium bicarbonate 650 mg tablet 650 mg PO TID #60 tabs 01/30/24
sennosides 8.6 mg-docusate sodium 50 mg tablet 1 tab PO BID #0 tabs 07/04/24
Home Medication Changes
Pending Results: No
[2024-07-04 15:18] VITALS: BP 130/70
[2024-07-04] MEDS: HEPARIN SC (15:56)
== END 2024-07-04 17:50 | disposition home or self-care (01) | DRG 699 ==
LOC: 2 SOUTH 09:40
PROVIDERS: Radiology Vascular & Interventional Radiology; ADMITTING PHYSICIAN Internal Medicine; ATTENDING PHYSICIAN Hospitalist; CONSULT PHYSICIAN Internal Medicine Nephrology; EMERGENCY PHYSICIAN Emergency Medicine; FAMILY PHYSICIAN Family Medicine
PROC: 0T25X0Z Change Drainage Device in Kidney, External Approach (ICD-10-PCS; 2024-07-01)
DX: T83.022A Displacement of nephrostomy catheter, initial encounter (principal); E87.1 Hypo-osmolality and hyponatremia; N17.9 Acute kidney failure, unspecified; N18.5 Chronic kidney disease, stage 5; N13.8 Other obstructive and reflux uropathy; N13.1 Hydronephrosis with ureteral stricture, not elsewhere classified; N40.0 Benign prostatic hyperplasia without lower urinary tract symptoms; R33.9 Retention of urine, unspecified; D53.9 Nutritional anemia, unspecified; C61 Malignant neoplasm of prostate; K59.00 Constipation, unspecified; E87.5 Hyperkalemia; Y84.6 Urinary catheterization as the cause of abnormal reaction of the patient, or of later complication, without mention of misadventure at the time of the procedure; Y92.9 Unspecified place or not applicable; Z87.891 Personal history of nicotine dependence; Z90.79 Acquired absence of other genital organ(s)
CPT/HCPCS: 50435; 76770; 80048; 80053; 81003; 81015; 83690; 83735; 85025; 85027; 87086; 99284; C1729; C1769

== ENCOUNTER → 2024-07-10 10:04 | Outpatient (REF) | payer MEDICARE, SELFPAY ==
[2024-07-10 10:25] LABS: % Basophils 0.3 % (0-2); % Eosinophils 2.9 % (0-6); % Immature Granulocytes 1.8 % (0-0.5); % Monocytes 9.9 % (1.7-9.3); % Neutrophils 73.1 % (42.2-75.2); Absolute Eosinophils 0.2 10^3/uL (0-0.7); Absolute Immature Granulocytes 0.1 10^3/uL (0-0.05); Absolute Lymphocytes 0.9 10^3/uL (1.2-3.4); Absolute Monocytes 0.8 10^3/uL (0.1-0.6); Absolute Neutrophils 5.7 10^3/uL (1.4-6.5); Hematocrit 30.4 % (39.0-52.0); Hemoglobin 9.9 g/dL (13.0-18.0); Mean Corp Hgb Conc. 32.6 g/dL (33.0-37.0); Mean Corpuscular Hgb 31.2 pg (27.0-31.0); Mean Corpuscular Volume 95.9 fL (80.0-94.0); Mean Platelet Volume 8.8 fL (7.4-10.4); Platelet Count 292 10^3/uL (130-400); Red Blood Cell Count 3.17 10^6/uL (4.70-6.10); Red Cell Dist. Width 13.5 % (11.5-14.5); White Blood Cell Count 7.8 10^3/uL (4.8-10.8)
[2024-07-10 11:29] LABS: Blood Urea Nitrogen 73 mg/dl (9-20); Iron 90 ug/dl (49-181)
[2024-07-10 11:36] LABS: Percent Saturation 40 % (20-50); Total Iron Binding Capacity 220 ug/dl (261-462)
[2024-07-10 11:45] LABS: PSA, Total - Diagnostic 0.12 ng/ml (0.0-4.0)
== END ==
LOC: OIDL 10:04
PROVIDERS: ATTENDING PHYSICIAN Internal Medicine Hematology & Oncology; FAMILY PHYSICIAN Family Medicine
DX: C61 Malignant neoplasm of prostate (principal)
CPT/HCPCS: 36415; 82565; 82728; 83540; 83550; 84153; 84520; 85025

== ENCOUNTER → 2024-08-01 09:56 | Outpatient (REF) | payer MEDICARE, SELFPAY ==
[2024-08-01 10:23] LABS: % Basophils 0.3 % (0-2); % Eosinophils 3.1 % (0-6); % Immature Granulocytes 0.5 % (0-0.5); % Lymphocytes 11.3 % (20.5-51.1); % Monocytes 8.4 % (1.7-9.3); % Neutrophils 76.4 % (42.2-75.2); Absolute Eosinophils 0.2 10^3/uL (0-0.7); Absolute Lymphocytes 0.7 10^3/uL (1.2-3.4); Absolute Monocytes 0.5 10^3/uL (0.1-0.6); Absolute Neutrophils 4.5 10^3/uL (1.4-6.5); Hematocrit 31.9 % (39.0-52.0); Hemoglobin 10.7 g/dL (13.0-18.0); Mean Corp Hgb Conc. 33.5 g/dL (33.0-37.0); Mean Corpuscular Hgb 31.9 pg (27.0-31.0); Mean Corpuscular Volume 95.2 fL (80.0-94.0); Mean Platelet Volume 8.8 fL (7.4-10.4); Platelet Count 242 10^3/uL (130-400); Red Blood Cell Count 3.35 10^6/uL (4.70-6.10); Red Cell Dist. Width 14.6 % (11.5-14.5); White Blood Cell Count 5.9 10^3/uL (4.8-10.8)
[2024-08-01 11:39] LABS: ALT (SGPT) 14 U/L (0-50); AST (SGOT) 14 U/L (17-59); Albumin 4.1 g/dl (3.5-5.0); Alkaline Phosphatase 51 U/L (38-126); Blood Urea Nitrogen 67 mg/dl (9-20); Calcium 10.7 mg/dl (8.4-10.2); Carbon Dioxide 24 mmol/L (22-30); Chloride 105 mmol/L (98-107); Glucose 129 mg/dl (70-99); Phosphorus 5.5 mg/dl (2.5-4.5); Potassium 4.8 mmol/L (3.5-5.1); Sodium 137 mmol/L (135-145); Total Bilirubin 0.5 mg/dl (0.2-1.3); eGFR 5.71
[2024-08-01 12:05] LABS: PSA, Total - Diagnostic 0.09 ng/ml (0.0-4.0)
[2024-08-01 20:15] LABS: Calcium 10.7 mg/dl (8.4-10.2)
[2024-08-01 21:10] LABS: Intact PTH 12.7 pg/ml (13.6-85.8)
== END ==
LOC: OIDL 09:56
PROVIDERS: Nurse Practitioner Adult Health; ATTENDING PHYSICIAN Internal Medicine Hematology & Oncology; FAMILY PHYSICIAN Family Medicine; REFERRING PHYSICIAN Internal Medicine
DX: R91.8 Other nonspecific abnormal finding of lung field (principal); C61 Malignant neoplasm of prostate; N18.9 Chronic kidney disease, unspecified; N18.4 Chronic kidney disease, stage 4 (severe); D50.9 Iron deficiency anemia, unspecified; E83.39 Other disorders of phosphorus metabolism; D63.1 Anemia in chronic kidney disease; N17.9 Acute kidney failure, unspecified; N18.5 Chronic kidney disease, stage 5
CPT/HCPCS: 36415; 80053; 80069; 83970; 84153; 85025

== ENCOUNTER → 2024-08-07 10:45 | Outpatient (REF) | payer MEDICARE, SELFPAY ==
[2024-08-07 11:14] LABS: % Basophils 0.1 % (0-2); % Eosinophils 1.8 % (0-6); % Immature Granulocytes 0.9 % (0-0.5); % Lymphocytes 9.7 % (20.5-51.1); % Monocytes 7.6 % (1.7-9.3); % Neutrophils 79.9 % (42.2-75.2); Absolute Eosinophils 0.2 10^3/uL (0-0.7); Absolute Immature Granulocytes 0.1 10^3/uL (0-0.05); Absolute Lymphocytes 0.8 10^3/uL (1.2-3.4); Absolute Monocytes 0.6 10^3/uL (0.1-0.6); Absolute Neutrophils 6.5 10^3/uL (1.4-6.5); Hematocrit 30.3 % (39.0-52.0); Hemoglobin 10.2 g/dL (13.0-18.0); Mean Corp Hgb Conc. 33.7 g/dL (33.0-37.0); Mean Corpuscular Hgb 31.9 pg (27.0-31.0); Mean Corpuscular Volume 94.7 fL (80.0-94.0); Mean Platelet Volume 9.3 fL (7.4-10.4); Platelet Count 205 10^3/uL (130-400); Red Cell Dist. Width 14.3 % (11.5-14.5); White Blood Cell Count 8.2 10^3/uL (4.8-10.8)
[2024-08-07 13:11] LABS: ALT (SGPT) 15 U/L (0-50); AST (SGOT) 16 U/L (17-59); Albumin 4.2 g/dl (3.5-5.0); Alkaline Phosphatase 48 U/L (38-126); Blood Urea Nitrogen 78 mg/dl (9-20); Carbon Dioxide 21 mmol/L (22-30); Chloride 105 mmol/L (98-107); Glucose 123 mg/dl (70-99); Potassium 4.7 mmol/L (3.5-5.1); Sodium 139 mmol/L (135-145); Total Bilirubin 0.5 mg/dl (0.2-1.3); eGFR 5.95
== END ==
LOC: OIDL 10:45
PROVIDERS: ATTENDING PHYSICIAN Internal Medicine Hematology & Oncology; FAMILY PHYSICIAN Family Medicine
DX: R91.8 Other nonspecific abnormal finding of lung field (principal)
CPT/HCPCS: 36415; 80053; 85025

== ENCOUNTER → 2024-09-04 10:20 | Outpatient (REF) | payer MEDICARE, SELFPAY ==
[2024-09-04 11:50] LABS: % Basophils 0.3 % (0-2); % Immature Granulocytes 0.4 % (0-0.5); % Monocytes 9.2 % (1.7-9.3); % Neutrophils 75.1 % (42.2-75.2); Absolute Eosinophils 0.2 10^3/uL (0-0.7); Absolute Lymphocytes 0.8 10^3/uL (1.2-3.4); Absolute Monocytes 0.6 10^3/uL (0.1-0.6); Absolute Neutrophils 5.2 10^3/uL (1.4-6.5); Hematocrit 31.1 % (39.0-52.0); Hemoglobin 10.4 g/dL (13.0-18.0); Mean Corp Hgb Conc. 33.4 g/dL (33.0-37.0); Mean Corpuscular Hgb 31.4 pg (27.0-31.0); Mean Platelet Volume 9.5 fL (7.4-10.4); Platelet Count 219 10^3/uL (130-400); Red Blood Cell Count 3.31 10^6/uL (4.70-6.10); Red Cell Dist. Width 13.5 % (11.5-14.5); White Blood Cell Count 6.9 10^3/uL (4.8-10.8)
[2024-09-04 13:25] LABS: ALT (SGPT) 13 U/L (0-50); AST (SGOT) 15 U/L (17-59); Albumin 4.2 g/dl (3.5-5.0); Alkaline Phosphatase 57 U/L (38-126); Blood Urea Nitrogen 84 mg/dl (9-20); Calcium 10.3 mg/dl (8.4-10.2); Carbon Dioxide 23 mmol/L (22-30); Chloride 100 mmol/L (98-107); Glucose 153 mg/dl (70-99); Potassium 5.1 mmol/L (3.5-5.1); Sodium 135 mmol/L (135-145); Total Bilirubin 0.4 mg/dl (0.2-1.3); eGFR 5.41
== END ==
LOC: OIDL 10:20
PROVIDERS: ATTENDING PHYSICIAN Internal Medicine Hematology & Oncology; FAMILY PHYSICIAN Family Medicine
DX: R91.8 Other nonspecific abnormal finding of lung field (principal); C61 Malignant neoplasm of prostate; N18.9 Chronic kidney disease, unspecified; N18.4 Chronic kidney disease, stage 4 (severe); D50.9 Iron deficiency anemia, unspecified
CPT/HCPCS: 36415; 80053; 85025

== ENCOUNTER → 2024-09-06 11:46 | Outpatient (REF) | payer MEDICARE, SELFPAY ==
[2024-09-06 12:44] VITALS: BP 147/65; BP_SYST 62
== END ==
LOC: RADI 11:46
PROVIDERS: ATTENDING PHYSICIAN Radiology Diagnostic Radiology; FAMILY PHYSICIAN Family Medicine
DX: Z43.6 Encounter for attention to other artificial openings of urinary tract (principal); N13.30 Unspecified hydronephrosis
CPT/HCPCS: 50435

== ENCOUNTER → 2024-09-28 07:02 | Outpatient (REF) | payer MEDICARE, SELFPAY ==
[2024-09-28 07:46] LABS: Hematocrit 34.8 % (39.0-52.0); Hemoglobin 11.6 g/dL (13.0-18.0); Mean Corp Hgb Conc. 33.3 g/dL (33.0-37.0); Mean Corpuscular Volume 93.8 fL (80.0-94.0); Nucleated Red Blood Cells % 0 % (-); Platelet Count 212 10^3/uL (130-400); Red Cell Dist. Width 14.0 % (11.5-14.5)
[2024-09-28 10:03] LABS: Albumin 4.6 g/dl (3.5-5.0); Blood Urea Nitrogen 67 mg/dl (9-20); Calcium 10.1 mg/dl (8.4-10.2); Carbon Dioxide 21 mmol/L (22-30); Chloride 106 mmol/L (98-107); Glucose 98 mg/dl (70-99); Potassium 5.1 mmol/L (3.5-5.1); Sodium 139 mmol/L (135-145); eGFR 5.87
== END ==
LOC: REG 07:02
PROVIDERS: ATTENDING PHYSICIAN Internal Medicine; FAMILY PHYSICIAN Family Medicine
DX: N18.5 Chronic kidney disease, stage 5 (principal); E83.39 Other disorders of phosphorus metabolism; D63.1 Anemia in chronic kidney disease; N17.9 Acute kidney failure, unspecified
CPT/HCPCS: 36415; 80069; 83970; 85025

== ENCOUNTER → 2024-10-02 10:16 | Outpatient (REF) | payer MEDICARE, SELFPAY ==
[2024-10-02 11:04] LABS: Hematocrit 30.9 % (39.0-52.0); Hemoglobin 10.3 g/dL (13.0-18.0); Mean Corp Hgb Conc. 33.3 g/dL (33.0-37.0); Mean Corpuscular Volume 95.7 fL (80.0-94.0); Platelet Count 207 10^3/uL (130-400); Red Cell Dist. Width 13.9 % (11.5-14.5)
[2024-10-02 11:57] LABS: Iron 94 ug/dl (49-181)
[2024-10-02 12:06] LABS: Total Iron Binding Capacity 233 ug/dl (261-462)
[2024-10-02 12:27] LABS: ALT (SGPT) 14 U/L (0-50); AST (SGOT) 15 U/L (17-59); Albumin 4.4 g/dl (3.5-5.0); Alkaline Phosphatase 50 U/L (38-126); Blood Urea Nitrogen 66 mg/dl (9-20); Calcium 9.8 mg/dl (8.4-10.2); Carbon Dioxide 25 mmol/L (22-30); Chloride 102 mmol/L (98-107); Glucose 124 mg/dl (70-99); Potassium 4.4 mmol/L (3.5-5.1); Sodium 137 mmol/L (135-145); Total Protein 7.2 g/dl (6.3-8.2); eGFR 5.95
[2024-10-02 12:31] LABS: PSA, Total - Diagnostic 0.09 ng/ml (0.0-4.0)
[2024-10-02 12:33] LABS: Ferritin 211.0 ng/ml (17.9-464.0)
== END ==
LOC: OIDL 10:16
PROVIDERS: Nurse Practitioner Adult Health; ATTENDING PHYSICIAN Internal Medicine Hematology & Oncology; FAMILY PHYSICIAN Family Medicine
DX: R91.8 Other nonspecific abnormal finding of lung field (principal); C61 Malignant neoplasm of prostate
CPT/HCPCS: 36415; 80053; 82728; 83540; 83550; 84153; 85025

== ENCOUNTER → 2024-10-09 09:34 | Outpatient (REF) | payer MEDICARE, SELFPAY | LOC: DHVS 09:34 | PROVIDERS: ATTENDING PHYSICIAN Surgery Vascular Surgery | DX: Z01.818 Encounter for other preprocedural examination (principal) | CPT/HCPCS: 93985 ==

== ENCOUNTER 2024-10-19 09:28 | Day surgery (SDC) | payer MEDICARE, SELFPAY ==
[2024-10-19] VITALS (13 sets, daily range): BP systolic 118–162; BP diastolic 62–87; BMI 26.6
[2024-10-19 09:57] LABS: Hematocrit 35.1 % (39.0-52.0); Hemoglobin 11.5 g/dL (13.0-18.0); Mean Corp Hgb Conc. 32.8 g/dL (33.0-37.0); Mean Corpuscular Volume 97.8 fL (80.0-94.0); Platelet Count 215 10^3/uL (130-400); Red Cell Dist. Width 14.4 % (11.5-14.5)
[2024-10-19 10:07] LABS: INR 0.97; PT 13.2 Sec (11.4-14.6)
[2024-10-19 10:08] LABS: APTT 25.0 Sec (23.4-35.0)
[2024-10-19] MEDS: PERIDEX 0.12% ORAL RINSE 15 ML PO (10:12)
[2024-10-19] MEDS: BACTROBAN NASAL 1 GRAM NASAL (10:12)
[2024-10-19 10:26] LABS: Blood Urea Nitrogen 60 mg/dl (9-20); Calcium 9.8 mg/dl (8.4-10.2); Carbon Dioxide 25 mmol/L (22-30); Chloride 104 mmol/L (98-107); Estimated Creatinine Clearance 6 ml/min; Glucose 101 mg/dl (70-99); Potassium 4.6 mmol/L (3.5-5.1); Sodium 141 mmol/L (135-145); eGFR 5.95
[2024-10-19] MEDS: NSS 500 IV (10:40)
--- NOTE | 2024-10-19 11:58 | W.SUR.PREOP ---
Pre-Operative Surgical Note
-
I have examined this patient prior to the performance of the scheduled procedure.
The patient's condition is unchanged from the time of the current History and
Physical and the patient is able to undergo the scheduled procedure.
--- NOTE | 2024-10-19 14:27 | W.SUR.POST ---
Surgical Immediate Post Op
Note
Pre Op Diagnosis: ESRD
Post Op Diagnosis: ESRD
Procedure Performed: Right upper extremity radiocephalic AV fistula creation
Primary Surgeon: Rj Connors M.D.
ex assistant/program director: Ella Fajardo BRAKE REPAIRER [employer]
Anesthesia: GETA
Estimated Blood Loss: 5 mL
Fluids: See anesthesia flowsheet
Drains/Shunts: N/A
Specimens/Cultures: N/A
Doppler/Duplex/Angio (Y/N): Y, Doppler
Complications: None
Operative Findings: Successful creation of radiocephalic AV fistula, postoperative palpable thrill and radial pulse palpable
--- NOTE | 2024-10-19 14:30 | OR.RPT ---
Operative Report
Operative Report
PROCEDURE DATE: 10/19/2024
Preoperative diagnosis: CKD stage V
Postoperative diagnosis: Same
Procedure: Right upper extremity radiocephalic arteriovenous fistula creation
Surgeon: Waylon
Drum Handler: ALBERT Fajardo, required for all aspects of procedure including assistance with traction/countertraction, following a suture line, assistance with closure.
Complications: None
Anesthesia: General
Indications for procedure:
Advanced kidney disease. Required more permanent access. Currently dialyzed via tunneled dialysis catheter. Risk/benefits/alternatives of fistula creation were discussed with the patient and his family. They understood all wish to proceed. On
my exam in the office the patient had a very obvious forearm cephalic vein. Vein mapping had shown potentially otherwise. Therefore I discussed with him using ultrasound myself preprocedurally or at the time of anesthesia induction.
Description of procedure:
Patient was identified brought to the operating room placed on the table in supine position. After the induction of anesthesia, I used the ultrasound probe to map the right upper extremity veins. The forearm cephalic vein appeared patent. There
may have been 1 area where there is a small web or valve, but otherwise the vein appeared compressible throughout its course. There did not appear to be any thrombotic issue. The only other vein that was reasonable with this basilic vein in the
upper arm. However there appeared to be a focal area of thrombotic/partial thrombus in the vein. Appeared likely chronic. Therefore I felt exploration of the forearm cephalic vein and potential radiocephalic fistula was reasonable. After the
adequate administration of anesthesia and perioperative antibiotics he was prepped and draped in the standard surgical fashion. A standard preoperative timeout was undertaken and everybody was in agreement the plan. A longitudinal incision was
made distal forearm/wrist on the radial aspect. This was carried through skin subcutaneous tissue.
A small lateral subcutaneous flap was raised and the cephalic vein was identified. It was carefully dissected away from surrounding structures take great care to avoid any injury to the structures. Any branches were ligated between silk ties and
then divided. Thus this allowed me to mobilize the vein. Once I mobilized the suitable segment, I deepened my dissection in the medial aspect of the incision through the fascial layer. I identified the radial artery. I carefully dissected away
from surrounding structures take great care to avoid any injury to structures. I passed a vessel loop around it proximally and distally.
Next, I ligated the cephalic vein distally in my field with a silk tie and a clip. I then transected it. I distended the vein under heparinized saline. It distended very well. I passed the dilators using 2.5 mm, followed by 3 mm dilators which
passed without any difficulty whatsoever. These passed all the way up to the forearm. In addition as I noted the vein distended well with heparinized saline. Therefore there is no concern here for any obstruction based on this evaluation. I
marked the anterior surface of the vein under distention to avoid any kinking or twisting.
Next, I gave the patient 3000 units of intravenous heparin. I placed occlusive Yasargil clips temporarily proximally and distally on the radial artery. I made an arteriotomy with a Craighead blade and extended using a micro Hall scissor. I then
spatulated the cephalic vein and sewed an end to side anastomosis using a running 7-0 Prolene suture. I backbled the artery and then completed and tied down my suture line. Next I released the Yasargil clips. There was an excellent thrill in the
fistula. There was no pulsatility to suggest any outflow obstruction or stenosis. There was an excellent Doppler signal in the radial artery proximally and distally to the fistula. At this point I was very satisfied. I irrigated. I achieved
and confirmed full hemostasis. We then closed in layers using 3-0 Vicryl deep dermal layer followed by 4-0 Monocryl subcuticular stitch. Dermabond was applied. The patient tolerated procedure well. All sponge, needle, instrument counts were
correct at the end of the case. Patient was transported to the recovery room in stable condition.
[2024-10-19] MEDS: TYLENOL 650 MG PO (15:28)
== END 2024-10-19 17:00 | disposition home or self-care (01) ==
LOC: CATH 09:28
PROVIDERS: ATTENDING PHYSICIAN Surgery Vascular Surgery; PRIMARYCARE PHYSICIAN Family Medicine
DX: N18.5 Chronic kidney disease, stage 5 (principal); Z87.891 Personal history of nicotine dependence
CPT/HCPCS: 36821; 80048; 85027; 85610; 85730; 86850; 86900; 86901; 93005

== ENCOUNTER → 2024-10-24 10:47 | Outpatient (REF) | payer MEDICARE, SELFPAY ==
[2024-10-24 10:59] VITALS: BP 152/73; BP_SYST 65
== END ==
LOC: RADI 10:47
PROVIDERS: ATTENDING PHYSICIAN Radiology Vascular & Interventional Radiology; FAMILY PHYSICIAN Family Medicine
DX: T83.022A Displacement of nephrostomy catheter, initial encounter (principal); Y73.2 Prosthetic and other implants, materials and accessory gastroenterology and urology devices associated with adverse incidents; N13.6 Pyonephrosis
CPT/HCPCS: 50435; C1729; C1769

== ENCOUNTER → 2024-10-30 10:03 | Outpatient (REF) | payer MEDICARE, SELFPAY ==
[2024-10-30 10:27] LABS: Hematocrit 33.1 % (39.0-52.0); Hemoglobin 10.8 g/dL (13.0-18.0); Mean Corp Hgb Conc. 32.6 g/dL (33.0-37.0); Mean Corpuscular Volume 96.8 fL (80.0-94.0); Platelet Count 202 10^3/uL (130-400); Red Cell Dist. Width 13.6 % (11.5-14.5)
[2024-10-30 12:12] LABS: ALT (SGPT) < 10 U/L (0-50); AST (SGOT) 14 U/L (17-59); Albumin 4.3 g/dl (3.5-5.0); Alkaline Phosphatase 49 U/L (38-126); Blood Urea Nitrogen 55 mg/dl (9-20); Calcium 9.2 mg/dl (8.4-10.2); Carbon Dioxide 24 mmol/L (22-30); Chloride 102 mmol/L (98-107); Glucose 106 mg/dl (70-99); Potassium 4.4 mmol/L (3.5-5.1); Sodium 138 mmol/L (135-145); Total Protein 7.0 g/dl (6.3-8.2); eGFR 7.67
== END ==
LOC: OIDL 10:03
PROVIDERS: Nurse Practitioner Adult Health; ATTENDING PHYSICIAN Internal Medicine Hematology & Oncology; FAMILY PHYSICIAN Family Medicine
DX: R91.8 Other nonspecific abnormal finding of lung field (principal); C61 Malignant neoplasm of prostate
CPT/HCPCS: 36415; 80053; 85025

== ENCOUNTER → 2024-11-02 10:30 | Outpatient (REF) | payer MEDICARE, SELFPAY | LOC: RAD 10:30 | PROVIDERS: ATTENDING PHYSICIAN Registered Nurse; FAMILY PHYSICIAN Family Medicine | DX: N18.5 Chronic kidney disease, stage 5 (principal); I77.0 Arteriovenous fistula, acquired | CPT/HCPCS: 93990 ==

== ENCOUNTER → 2024-11-27 10:24 | Outpatient (REF) | payer MEDICARE, SELFPAY ==
[2024-11-27 11:05] LABS: Hematocrit 33.9 % (39.0-52.0); Hemoglobin 11.4 g/dL (13.0-18.0); Mean Corp Hgb Conc. 33.6 g/dL (33.0-37.0); Mean Corpuscular Volume 97.1 fL (80.0-94.0); Platelet Count 198 10^3/uL (130-400); Red Cell Dist. Width 14.6 % (11.5-14.5)
[2024-11-27 12:10] LABS: ALT (SGPT) 13 U/L (0-50); AST (SGOT) 15 U/L (17-59); Albumin 4.5 g/dl (3.5-5.0); Alkaline Phosphatase 55 U/L (38-126); Blood Urea Nitrogen 63 mg/dl (9-20); Calcium 9.7 mg/dl (8.4-10.2); Carbon Dioxide 20 mmol/L (22-30); Chloride 105 mmol/L (98-107); Glucose 102 mg/dl (70-99); Potassium 4.7 mmol/L (3.5-5.1); Sodium 138 mmol/L (135-145); Total Protein 7.2 g/dl (6.3-8.2); eGFR 7.16
== END ==
LOC: OIDL 10:24
PROVIDERS: ATTENDING PHYSICIAN Internal Medicine Hematology & Oncology; FAMILY PHYSICIAN Family Medicine
DX: R91.8 Other nonspecific abnormal finding of lung field (principal); C61 Malignant neoplasm of prostate
CPT/HCPCS: 36415; 80053; 85025

== ENCOUNTER 2024-11-29 08:33 | Day surgery (SDC) | payer MEDICARE, SELFPAY ==
[2024-11-29] VITALS (11 sets, daily range): BP systolic 117–151; BP diastolic 63–78; BMI 25.5
[2024-11-29 09:10] LABS: Hematocrit 35.8 % (39.0-52.0); Hemoglobin 11.7 g/dL (13.0-18.0); Mean Corp Hgb Conc. 32.7 g/dL (33.0-37.0); Mean Corpuscular Volume 97.0 fL (80.0-94.0); Platelet Count 200 10^3/uL (130-400); Red Cell Dist. Width 14.6 % (11.5-14.5)
[2024-11-29 09:29] LABS: INR 0.94; PT 13.1 Sec (11.4-14.6)
[2024-11-29 09:30] LABS: APTT 25.5 Sec (23.4-35.0)
[2024-11-29] MEDS: PERIDEX 0.12% ORAL RINSE 15 ML PO (09:35)
[2024-11-29] MEDS: BACTROBAN NASAL 1 GRAM NASAL (09:35)
[2024-11-29 10:00] LABS: Blood Urea Nitrogen 65 mg/dl (9-20); Calcium 10.0 mg/dl (8.4-10.2); Carbon Dioxide 25 mmol/L (22-30); Chloride 106 mmol/L (98-107); Estimated Creatinine Clearance 7 ml/min; Glucose 109 mg/dl (70-99); Potassium 5.1 mmol/L (3.5-5.1); Sodium 141 mmol/L (135-145); eGFR 6.82
--- NOTE | 2024-11-29 12:47 | OR.RPT ---
Operative Report
Operative Report
PROCEDURE DATE: 11/29/2024
Preoperative diagnosis: Worsening chronic kidney disease
Postoperative diagnosis: Same
Procedure: Right upper extremity brachiobasilic arteriovenous fistula creation with single stage basilic vein transposition.
Surgeon: Waylon
Gate Person: Ella Fajardo FOREST NURSERY WORKER, required for aspects of procedure including assistance with traction/countertraction, following a suture line, assistance with closure.
Complications: None
Anesthesia: General, LMA
Indications for procedure:
Chronic kidney disease, worsening, approaching hemodialysis. Failed right upper extremity radiocephalic AV fistula. Risk/benefits/alternatives of new AV fistula creation discussed. Discussed likely basilic vein transposition. Patient understood
and wished to proceed.
Description of procedure:
Patient was identified brought to the operating room placed on the table in supine position. After the adequate administration of anesthesia and perioperative antibiotics he was prepped and draped in the standard surgical fashion. A standard
preoperative timeout was undertaken and everybody was in agreement the plan. A longitudinal incision was made in the medial distal upper arm that was carried through the skin subcutaneous tissue with electrocautery. The basilic vein was identified
and carefully dissected away from surrounding structures and great care to avoid any injury to structures. It appeared to be a very suitable vein. I therefore then continued my incisions extending proximally up towards the axilla and distally just
to the level of the antecubital fossa. The basilic vein was carefully dissected away from surrounding structures take great care to avoid any injury to structures, namely the median antebrachial cutaneous nerve which was carefully preserved from
harm's way. Any branches of the basilic vein were ligated between silk ties and then divided. As such I was able to mobilize the entirety of the basilic vein out of its bed. Once I fully mobilized sufficient length of vein I then ligated the vein
distally with a silk tie and a clip and then transected it. I then untethered it from the nerve. I distended under heparinized saline. It distended very well. I marked the anterior surface under distention to avoid any kinking or twisting when I
tunneled it.
Next I deepened my dissection in the distal aspect of my incision through the fascial layer, thereby identifying the brachial artery and carefully dissected away from surrounding structures and great care to avoid any injury to structures. I passed
Vesseloops around it proximally distally. Next I made a small counterincision overlying the biceps and used an aortic clamp to tunnel the mobilized basilic vein to the arterial exposure site (tunneled in a rainbow fashion overlying the biceps).
The tunneling was performed with the vein under distention to avoid any kinking or twisting.
Next I gave the patient 3000 units of intravenous heparin. I then tightened my Vesseloops (double looped) proximally and distally on the brachial artery. Next I made an arteriotomy with 11 blade and extended using a Hall scissor. I then
spatulated the vein and sewed an end-to-side anastomosis using a running 6-0 Prolene suture. I then completed and tied down my suture line. Next I released my Vesseloops on the artery and the bulldog clamp tied placed on the vein. There is an
excellent thrill in the fistula. There was a small suture line bleeder that was repaired with a single 6-0 Prolene [id number] type suture. Hemostasis was now achieved along the suture line. I confirmed good distal flow with an easily
palpable radial pulse at the wrist. At this point is very satisfied. I therefore irrigated all my incision sites. Hemostasis was fully achieved and confirmed. Then closed the vein mobilization bed using 2-0 Vicryl interrupted suture. Deep
dermal 3-0 Vicryl suture was then run. Finally 4-0 Monocryl subcuticular stitch was run. The small counterincision was closed with 4-0 Monocryl subcuticular stitch as well. Dermabond was applied to the incision sites. The patient tolerated the
procedure well. All sponge, needle, instrument counts were correct at the end of the case. Patient was transported to recovery room in stable condition.
[2024-11-29] MEDS: TYLENOL 650 MG PO (14:45)
== END 2024-11-29 15:00 | disposition home or self-care (01) ==
LOC: CATH 08:33
PROVIDERS: ATTENDING PHYSICIAN Surgery Vascular Surgery; PRIMARYCARE PHYSICIAN Family Medicine
DX: N18.5 Chronic kidney disease, stage 5 (principal); Z87.891 Personal history of nicotine dependence
CPT/HCPCS: 36819; 80048; 85027; 85610; 85730; 86850; 86900; 86901

== ENCOUNTER → 2024-12-25 10:11 | Outpatient (REF) | payer MEDICARE, SELFPAY ==
[2024-12-25 10:47] LABS: Hematocrit 30.5 % (39.0-52.0); Hemoglobin 10.0 g/dL (13.0-18.0); Mean Corp Hgb Conc. 32.8 g/dL (33.0-37.0); Mean Corpuscular Volume 99.3 fL (80.0-94.0); Platelet Count 181 10^3/uL (130-400); Red Cell Dist. Width 14.4 % (11.5-14.5)
[2024-12-25 11:43] LABS: ALT (SGPT) 15 U/L (0-50); AST (SGOT) 17 U/L (17-59); Albumin 4.0 g/dl (3.5-5.0); Alkaline Phosphatase 54 U/L (38-126); Blood Urea Nitrogen 50 mg/dl (9-20); Calcium 9.0 mg/dl (8.4-10.2); Carbon Dioxide 22 mmol/L (22-30); Chloride 106 mmol/L (98-107); Glucose 136 mg/dl (70-99); Potassium 4.6 mmol/L (3.5-5.1); Sodium 138 mmol/L (135-145); Total Protein 6.7 g/dl (6.3-8.2); eGFR 7.81
[2024-12-25 12:06] LABS: PSA, Total - Diagnostic 0.11 ng/ml (0.0-4.0)
[2024-12-25 18:09] LABS: Iron 86 ug/dl (49-181)
[2024-12-25 18:19] LABS: Total Iron Binding Capacity 213 ug/dl (261-462)
== END ==
LOC: OIDL 10:11
PROVIDERS: ATTENDING PHYSICIAN Internal Medicine Hematology & Oncology; FAMILY PHYSICIAN Family Medicine
DX: R91.8 Other nonspecific abnormal finding of lung field (principal); C61 Malignant neoplasm of prostate
CPT/HCPCS: 36415; 80053; 83540; 83550; 84153; 85025

== ENCOUNTER → 2025-01-16 13:48 | Outpatient (REF) | payer MEDICARE, SELFPAY | LOC: DHVS 13:48 | PROVIDERS: ATTENDING PHYSICIAN Registered Nurse; FAMILY PHYSICIAN Family Medicine | DX: N18.5 Chronic kidney disease, stage 5 (principal) | CPT/HCPCS: 93990 ==

== ENCOUNTER → 2025-01-22 10:04 | Outpatient (REF) | payer MEDICARE, SELFPAY ==
[2025-01-22 10:16] LABS: Hematocrit 33.1 % (39.0-52.0); Hemoglobin 10.8 g/dL (13.0-18.0); Mean Corp Hgb Conc. 32.6 g/dL (33.0-37.0); Mean Corpuscular Volume 100.9 fL (80.0-94.0); Platelet Count 194 10^3/uL (130-400); Red Cell Dist. Width 14.3 % (11.5-14.5)
[2025-01-22 11:12] LABS: ALT (SGPT) 16 U/L (0-50); AST (SGOT) 16 U/L (17-59); Albumin 4.3 g/dl (3.5-5.0); Alkaline Phosphatase 63 U/L (38-126); Blood Urea Nitrogen 59 mg/dl (9-20); Calcium 9.4 mg/dl (8.4-10.2); Carbon Dioxide 22 mmol/L (22-30); Chloride 104 mmol/L (98-107); Glucose 100 mg/dl (70-99); Potassium 5.1 mmol/L (3.5-5.1); Sodium 136 mmol/L (135-145); Total Protein 7.2 g/dl (6.3-8.2); eGFR 8.92
== END ==
LOC: OIDL 10:04
PROVIDERS: ATTENDING PHYSICIAN Internal Medicine Hematology & Oncology; FAMILY PHYSICIAN Family Medicine
DX: R91.8 Other nonspecific abnormal finding of lung field (principal); C61 Malignant neoplasm of prostate
CPT/HCPCS: 36415; 80053; 85025

== ENCOUNTER → 2025-01-23 11:47 | Outpatient (REF) | payer MEDICARE, SELFPAY ==
[2025-01-23 12:16] VITALS: BP 153/63; BP_SYST 73
== END ==
LOC: RADI 11:47
PROVIDERS: ATTENDING PHYSICIAN Radiology Diagnostic Radiology; FAMILY PHYSICIAN Family Medicine
DX: Z43.6 Encounter for attention to other artificial openings of urinary tract (principal); N13.5 Crossing vessel and stricture of ureter without hydronephrosis
CPT/HCPCS: 50435; C1729; C1769

== ENCOUNTER → 2025-02-19 10:06 | Outpatient (REF) | payer MEDICARE, SELFPAY ==
[2025-02-19 10:49] LABS: Hematocrit 35.8 % (39.0-52.0); Hemoglobin 11.7 g/dL (13.0-18.0); Mean Corp Hgb Conc. 32.7 g/dL (33.0-37.0); Mean Corpuscular Volume 100.8 fL (80.0-94.0); Platelet Count 187 10^3/uL (130-400); Red Cell Dist. Width 13.5 % (11.5-14.5)
[2025-02-19 11:22] LABS: ALT (SGPT) 15 U/L (0-50); AST (SGOT) 15 U/L (17-59); Albumin 4.5 g/dl (3.5-5.0); Alkaline Phosphatase 55 U/L (38-126); Blood Urea Nitrogen 60 mg/dl (9-20); Calcium 9.3 mg/dl (8.4-10.2); Carbon Dioxide 26 mmol/L (22-30); Chloride 103 mmol/L (98-107); Glucose 121 mg/dl (70-99); Potassium 4.9 mmol/L (3.5-5.1); Sodium 136 mmol/L (135-145); Total Protein 7.1 g/dl (6.3-8.2); eGFR 8.57
== END ==
LOC: OIDL 10:06
PROVIDERS: ATTENDING PHYSICIAN Internal Medicine Hematology & Oncology; FAMILY PHYSICIAN Family Medicine
DX: R91.8 Other nonspecific abnormal finding of lung field (principal); C61 Malignant neoplasm of prostate
CPT/HCPCS: 36415; 80053; 85025

== ENCOUNTER → 2025-03-19 10:08 | Outpatient (REF) | payer MEDICARE, SELFPAY ==
[2025-03-19 10:22] LABS: Hematocrit 33.9 % (39.0-52.0); Hemoglobin 10.9 g/dL (13.0-18.0); Mean Corp Hgb Conc. 32.2 g/dL (33.0-37.0); Mean Corpuscular Volume 100.6 fL (80.0-94.0); Platelet Count 203 10^3/uL (130-400); Red Cell Dist. Width 13.0 % (11.5-14.5)
== END ==
LOC: OIDL 10:08
PROVIDERS: ATTENDING PHYSICIAN Internal Medicine Hematology & Oncology; FAMILY PHYSICIAN Family Medicine
DX: R91.8 Other nonspecific abnormal finding of lung field (principal)
CPT/HCPCS: 36415; 85025